=== PATIENT | female | born 1960 | race Caucasian/White ===

== ENCOUNTER 2021-03-02 10:22 | Outpatient (REF) | payer MEDICARE, MEDICAID, SELFPAY ==
[2021-03-02 10:38] LABS: Hematocrit 40.2 % (37-47); Hemoglobin 13.1 g/dl (12.0-16.0); Mean Corpuscular HGB Conc 32.6 g/dl (31.0-35.0); Mean Corpuscular Hemoglobin 29.2 pg (27.0-33.0); Mean Corpuscular Volume 89.7 fL (80-98); Mean Platelet Volume 9.9 fL (9.4-12.3); Platelet Count 251 X10*3/uL (160-400); Red Blood Count 4.48 X10*6/uL (4.20-5.50); Red Cell Distribution Width 12.5 % (11.0-16.0); White Blood Count 7.8 X10*3/uL (4.8-10.8)
[2021-03-02 10:52] LABS: Estimated Average Glucose 105 mg/dL; Hemoglobin A1c % 5.3 %
[2021-03-02 11:05] LABS: Alanine Aminotransferase 17 U/L (0-31); Albumin Level 4.4 g/dL (3.5-5.0); Alkaline Phosphatase 79 U/L (39-117); Anion Gap 14 (12-20); Aspartate Amino Transferase 18 U/L (5-31); Bilirubin Total 0.5 mg/dL (0.0-1.0); Blood Urea Nitrogen 9 mg/dL (9-16); Calcium 9.6 mg/dL (8.4-10.2); Carbon Dioxide 25 mmol/L (22-29); Chloride 106 mmol/L (96-108); Cholesterol 281 mg/dL; Estimated Glomerular Filt Rate > 60; Glucose Fasting 126 mg/dL (60-99); HDL Cholesterol 56 mg/dL; LDL Cholesterol Calculated 173 mg/dl; Sodium 141 mmol/L (135-145); Total Protein 7.2 g/dL (6.5-8.0); Triglycerides 262 mg/dL
[2021-03-02 11:25] LABS: TSH reflex Free T4 0.99 uIU/mL (0.32-4.0)
== END 2021-03-02 10:23 | disposition home or self-care (01) ==
LOC: HO.LAB 10:22
PROVIDERS: PCP Physician Assistant; Visit Provider Physician Assistant
DX: I10 Essential (primary) hypertension (principal); Z13.1 Encounter for screening for diabetes mellitus; Z13.29 Encounter for screening for other suspected endocrine disorder; Z13.220 Encounter for screening for lipoid disorders
CPT/HCPCS: 36415; 80053; 80061; 83036; 84443; 85027

== ENCOUNTER 2021-04-06 09:05 | Outpatient (REF) | payer MEDICARE, MEDICAID, SELFPAY ==
--- NOTE | ~2021-04-06 | XR_ITS ---
EXAMINATION: KNEE X-RAY CLINICAL INFORMATION: Post left knee replacement. Pain. COMPARISON: Previous x-rays most recent December 2017, fluoroscopy exam September [address] April 2019 TECHNIQUE: Standing AP view of both knees and lateral and sunrise view of the left knee FINDINGS: Left: There is a 3 component left knee replacement in satisfactory position. No fracture, dislocation or x-ray evidence of loosening is seen. There is increasing lucency of the superior patella. There is a small joint effusion. Standing AP view of the right knee demonstrates mild joint space narrowing at the medial femoral tibial joint. XR/XR knee standing BI IMPRESSION: Left: Left knee replacement. Question increasing lucency of the superior patella. Small joint effusion.
--- NOTE | ~2021-04-06 | XR_ITS ---
EXAMINATION: KNEE X-RAY CLINICAL INFORMATION: Post left knee replacement. Pain. COMPARISON: Previous x-rays most recent December 2017, fluoroscopy exam September [address] April 2019 TECHNIQUE: Standing AP view of both knees and lateral and sunrise view of the left knee FINDINGS: Left: There is a 3 component left knee replacement in satisfactory position. No fracture, dislocation or x-ray evidence of loosening is seen. There is increasing lucency of the superior patella. There is a small joint effusion. Standing AP view of the right knee demonstrates mild joint space narrowing at the medial femoral tibial joint. XR/XR knee LT 2V IMPRESSION: Left: Left knee replacement. Question increasing lucency of the superior patella. Small joint effusion.
== END 2021-04-06 09:06 | disposition home or self-care (01) ==
LOC: HO.HOSX 09:05
PROVIDERS: Visit Provider Orthopaedic Surgery
DX: M76.32 Iliotibial band syndrome, left leg (principal); T84.89XA Other specified complication of internal orthopedic prosthetic devices, implants and grafts, initial encounter; Z96.652 Presence of left artificial knee joint
CPT/HCPCS: 73560; 73565; 99212

== ENCOUNTER 2021-09-04 06:05 | Outpatient (REF) | payer MEDICARE, MEDICAID, SELFPAY ==
[2021-09-04 07:41] LABS: Alanine Aminotransferase 13 U/L (0-31); Albumin Level 4.2 g/dL (3.5-5.0); Alkaline Phosphatase 69 U/L (39-117); Anion Gap 14 (12-20); Aspartate Amino Transferase 15 U/L (5-31); Bilirubin Total 0.5 mg/dL (0.0-1.0); Blood Urea Nitrogen 11 mg/dL (9-16); Calcium 9.5 mg/dL (8.4-10.2); Carbon Dioxide 24 mmol/L (22-29); Chloride 106 mmol/L (96-108); Cholesterol 208 mg/dL; Estimated Glomerular Filt Rate > 60; Glucose Fasting 117 mg/dL (60-99); HDL Cholesterol 51 mg/dL; LDL Cholesterol Calculated 120 mg/dl; Potassium 4.2 mmol/L (3.3-5.1); Sodium 140 mmol/L (135-145); Total Protein 6.9 g/dL (6.5-8.0); Triglycerides 186 mg/dL
== END 2021-09-04 06:06 | disposition home or self-care (01) ==
LOC: HO.LAB 06:05
PROVIDERS: PCP Physician Assistant; Visit Provider Physician Assistant
DX: E78.2 Mixed hyperlipidemia (principal)
CPT/HCPCS: 36415; 80053; 80061

== ENCOUNTER → 2021-10-31 12:17 | Outpatient (BNVA) | payer MEDICARE, MEDICAID, SELFPAY | PROVIDERS: PCP Physician Assistant; Visit Provider Orthopaedic Surgery | DX: R20.0 Anesthesia of skin (principal); R20.2 Paresthesia of skin; M18.11 Unilateral primary osteoarthritis of first carpometacarpal joint, right hand | CPT/HCPCS: 99202 ==

== ENCOUNTER 2022-03-15 09:29 | Outpatient (REF) | payer MEDICARE, MEDICAID, SELFPAY ==
[2022-03-15 10:09] LABS: Hematocrit 39.8 % (37.0-47.0); Hemoglobin 12.7 g/dl (12.0-16.0); Mean Corpuscular HGB Conc 31.9 g/dl (31.0-35.0); Mean Corpuscular Hemoglobin 29.3 pg (27.0-33.0); Mean Corpuscular Volume 91.9 fL (80.0-98.0); Platelet Count 257 X10*3/uL (160-400); Red Blood Count 4.33 X10*6/uL (4.20-5.50)
[2022-03-15 10:45] LABS: Alanine Aminotransferase 12 U/L (0-31); Albumin Level 4.5 g/dL (3.5-5.0); Alkaline Phosphatase 74 U/L (39-117); Anion Gap 16 (12-20); Aspartate Amino Transferase 17 U/L (5-31); Bilirubin Total 0.5 mg/dL (0.0-1.0); Blood Urea Nitrogen 10 mg/dL (9-16); Calcium 9.8 mg/dL (8.4-10.2); Carbon Dioxide 25 mmol/L (22-29); Chloride 104 mmol/L (96-108); Cholesterol 283 mg/dL; Estimated Glomerular Filt Rate > 60; Glucose Fasting 119 mg/dL (60-99); HDL Cholesterol 60 mg/dL; LDL Cholesterol Calculated 173 mg/dl; Potassium 4.1 mmol/L (3.3-5.1); Sodium 141 mmol/L (135-145); Total Protein 7.3 g/dL (6.5-8.0); Triglycerides 253 mg/dL
[2022-03-15 10:54] LABS: TSH reflex Free T4 0.81 uIU/mL (0.32-4.0)
== END 2022-03-15 09:30 | disposition home or self-care (01) ==
LOC: HO.LAB 09:29
PROVIDERS: PCP Physician Assistant; Visit Provider Physician Assistant
DX: R73.09 Other abnormal glucose (principal); R61 Generalized hyperhidrosis; E78.2 Mixed hyperlipidemia
CPT/HCPCS: 36415; 80053; 80061; 84443; 85027

== ENCOUNTER 2022-04-19 07:35 | Outpatient (REF) | payer MEDICARE, MEDICAID, SELFPAY ==
--- NOTE | ~2022-04-19 | MM_ITS ---
EXAMINATION: MM SCREENING DIGITAL BREAST TOMOSYNTHESIS, BILATERAL CLINICAL INFORMATION: Screening. Asymptomatic. The lifetime risk of breast cancer based on the Tyrer-Cuzick Model is 3.6%. COMPARISON: Mammography: 12/14/2008 TECHNIQUE: Digital breast tomosynthesis is performed in both the craniocaudal and mediolateral oblique views along with computer-aided detection (CAD). Synthesized 2D images are generated from the tomosynthesis. FINDINGS: The breasts are almost entirely fatty (ACR BI-RADS breast composition Category a). There is a stable parenchymal pattern of the left breast without new abnormal dominant mass or suspicious grouping of microcalcifications. There are numerous circumscribed densities seen within the right breast as marked on tomographic imaging including a periareolar circumscribed density. Ultrasound evaluation is recommended of the right breast. MM/MM tomosynthesis screening BI IMPRESSION: Numerous circumscribed densities some of which are lobular within the right breast not definitely noted on study of 12/14/2008 for which right breast ultrasound is recommended. ASSESSMENT: BI-RADS 0: Incomplete - Need Additional Imaging Evaluation RECOMMENDATION: Targeted right breast ultrasound. This patient's information was entered into a reminder system with a target due date for their next mammogram.
== END 2022-04-19 07:36 | disposition home or self-care (01) ==
LOC: HO.MAMMO 07:35
PROVIDERS: PCP Physician Assistant; Visit Provider Physician Assistant
DX: Z12.31 Encounter for screening mammogram for malignant neoplasm of breast (principal)
CPT/HCPCS: 77063; 77067

== ENCOUNTER 2022-04-26 08:15 | Outpatient (REF) | payer MEDICARE, MEDICAID, SELFPAY ==
--- NOTE | ~2022-04-26 | US_ITS ---
EXAMINATION: US DIAGNOSTIC ULTRASOUND BREAST, RIGHT CLINICAL INFORMATION: Recall from screening for scattered nodularity duct ectasia right breast. COMPARISON: 04/19/2022, remote prior mammography 12/14/2008. TECHNIQUE: Ultrasound-guided right breast is targeted to the 1:00 through 9:00 position using grayscale imaging and color Doppler without and with harmonics. There is interrogated correspond to scattered densities on mammography. FINDINGS: Ultrasound shows no solid mass or focal architectural abnormality. There is benign-appearing retroareolar duct ectasia with anechoic lumen. No internal echogenicity or associated color flow. There is an intramammary node posterior upper outer right breast measuring 1 cm with normal nelly architecture and color flow. There are several scattered small cysts central upper breast, largest only 0.5 cm. These likely correspond to the mammographic nodularity. Results are discussed with the patient at time of visit. There are no other prior mammography exams other than the 2008 study. Ultrasound shows no suspicious finding. Chronicity of the benign-appearing mammographic findings is unknown. Management plan is for diagnostic right mammography in 6 months. US/US breast RT limited IMPRESSION: -No solid mass or architectural abnormality. -Benign retroareolar duct ectasia. Scattered small cysts. ASSESSMENT: BI-RADS 3: Probably Benign RECOMMENDATION: Diagnostic right mammography in 6 months. This patient's information was entered into a reminder system with a target due date for their next mammogram.
== END 2022-04-26 08:16 | disposition home or self-care (01) ==
LOC: HO.MAMMO 08:15
PROVIDERS: PCP Physician Assistant; Visit Provider Physician Assistant
DX: R92.2 Inconclusive mammogram (principal)
CPT/HCPCS: 76642

== ENCOUNTER 2022-09-27 08:04 | Outpatient (REF) | payer MEDICARE, MEDICAID, SELFPAY ==
--- NOTE | ~2022-09-27 | XR_ITS ---
EXAMINATION: XR KNEE, LEFT XR KNEE AP STANDING CLINICAL INFORMATION: Pain. COMPARISON: None available. TECHNIQUE: Lateral and axial views of the left knee were obtained. AP bilateral standing view of the knees was obtained. FINDINGS: Prosthetic components of the left total knee arthroplasty are appropriately aligned without periprosthetic fracture or abnormal lucency. No component migration. No joint effusion. The lateral joint space compartment of the right knee is well-maintained. There is mild narrowing of the medial joint space compartment the left kidney, with mild peripheral osteophyte formation. There is a slight varus configuration of the right knee. No varus or valgus configuration is noted of the left knee. XR/XR knee LT 2V IMPRESSION: 1. Appropriate alignment of the left total knee arthroplasty without evidence of complications. 2. There is mild degenerative change of the medial joint space compartment of the right knee. This is an associated mild varus configuration.
--- NOTE | ~2022-09-27 | XR_ITS ---
EXAMINATION: XR KNEE, LEFT XR KNEE AP STANDING CLINICAL INFORMATION: Pain. COMPARISON: None available. TECHNIQUE: Lateral and axial views of the left knee were obtained. AP bilateral standing view of the knees was obtained. FINDINGS: Prosthetic components of the left total knee arthroplasty are appropriately aligned without periprosthetic fracture or abnormal lucency. No component migration. No joint effusion. The lateral joint space compartment of the right knee is well-maintained. There is mild narrowing of the medial joint space compartment the left kidney, with mild peripheral osteophyte formation. There is a slight varus configuration of the right knee. No varus or valgus configuration is noted of the left knee. XR/XR knee standing BI IMPRESSION: 1. Appropriate alignment of the left total knee arthroplasty without evidence of complications. 2. There is mild degenerative change of the medial joint space compartment of the right knee. This is an associated mild varus configuration.
== END 2022-09-27 08:05 | disposition home or self-care (01) ==
LOC: HO.HOSX 08:04
PROVIDERS: Visit Provider Orthopaedic Surgery
DX: M17.11 Unilateral primary osteoarthritis, right knee (principal); M25.512 Pain in left shoulder
CPT/HCPCS: 73560; 73565; 99212

== ENCOUNTER 2022-10-25 08:45 | Outpatient (REF) | payer MEDICARE, MEDICAID, SELFPAY ==
--- NOTE | ~2022-10-25 | MM_ITS ---
EXAMINATION: MM DIAGNOSTIC DIGITAL BREAST TOMOSYNTHESIS, RIGHT US DIAGNOSTIC ULTRASOUND BREAST, RIGHT CLINICAL INFORMATION: Short interval six-month follow-up scattered benign-appearing nodular asymmetries and mild duct ectasia. TC score 4%. COMPARISON: Mammography: 04/19/2022 (BI-RADS 0), 12/14/2008; right breast ultrasound 04/26/2022. TECHNIQUE: Digital breast tomosynthesis is performed in both the craniocaudal and mediolateral oblique views along with computer-aided detection (CAD). Synthesized 2D images are generated from the tomosynthesis. Ultrasound right axilla is performed using grayscale imaging and color Doppler. Additional imaging central and retroareolar right breast also included at time of real-time axillary scanning. FINDINGS: There are scattered areas of fibroglandular density (ACR BI-RADS breast composition Category b). The nodular parenchymal pattern and mild duct ectasia is similar to prior mammography. There is no developing density or interval architectural abnormality. No abnormal calcifications. No skin thickening or coarsening of the Estrada's ligaments. There is a posterior upper outer quadrant axillary node which appears slightly more prominent and thicker when compared with the prior exam 04/19/2022. This prompted additional imaging with ultrasound. Ultrasound of the right axillary node 9:30-10:00 position 9 cm from nipple shows the normal nelly architecture and abundant central fatty hilus. No measures approximately 1.4 x 1.0 cm. The cortex measures 4 mm compared with 3 mm on prior imaging. There is normal central hilar color flow pattern. Additional imaging central and anterior right breast shows some scattered small cysts and benign retroareolar duct ectasia similar to prior ultrasound. Results are discussed with the patient at time of visit. No recent vaccination right arm or other inflammatory history. The lower right axillary node appears benign, likely mildly reactive. This may be reassessed again in 3 months with targeted ultrasound. The right breast will be reassessed again at time of annual bilateral mammography, due in 6 months. MM/MM tomosynthesis diagnostic RT IMPRESSION: -Right breast parenchymal pattern is similar to prior exam. -Probable mild reactive low right axillary tail node. ASSESSMENT: BI-RADS 3: Probably Benign RECOMMENDATION: -Targeted ultrasound right axillary node in 3 months. -Diagnostic mammography at time of annual bilateral mammography, due in 6 months. This patient's information was entered into a reminder system with a target due date for their next mammogram.
== END 2022-10-25 08:46 | disposition home or self-care (01) ==
LOC: HO.MAMMO 08:45
PROVIDERS: PCP Physician Assistant; Visit Provider Physician Assistant
DX: N63.11 Unspecified lump in the right breast, upper outer quadrant (principal)
CPT/HCPCS: 76642; 77061; 77065

== ENCOUNTER 2022-11-08 08:57 | Outpatient (REF) | payer MEDICARE, MEDICAID, SELFPAY ==
--- NOTE | ~2022-11-08 | FL_ITS ---
EXAMINATION: FL BARIUM SWALLOW CLINICAL INFORMATION: Dysphasia. COMPARISON: 11/09/2016. TECHNIQUE: Barium swallow examination is performed using fluoroscopic evaluation in addition to multiple fluoroscopic spot views. The patient is imaged both upright and prone and using both thick and thin sulfate along with effervescent granules. Fluoroscopy time: 1.5 minutes DAP: 6.126 Gycm2 Images: 53 FINDINGS: Patient swallowed thin and thick barium without difficulty. Half-inch diameter barium tablet would not pass into the stomach with a web being present with persistent narrowing at the level of the GE junction. There is a small hiatal hernia present. There was some esophageal hypomotility with gastroesophageal reflux to the level of the fang which cleared. No esophageal mucosal abnormality was appreciated. No nasopharyngeal reflux or tracheal aspiration. No Zenker's diverticulum. No cricopharyngeal hypertrophy. No long persistent stricture is appreciated. There is normal apposition of the vocal cords while saying E and normal elevation of the soft palate while saying candy. FL/FL barium swallow IMPRESSION: 1. Persistent short section narrowing within the distal esophagus through which a half-inch diameter barium tablet would not pass. 2. Small hiatal hernia. 3. Esophageal hypomotility. 4. Gastroesophageal reflux.
== END 2022-11-08 08:58 | disposition home or self-care (01) ==
LOC: HO.XRAY 08:57
PROVIDERS: PCP Physician Assistant; Visit Provider Physician Assistant
DX: R13.19 Other dysphagia (principal)
CPT/HCPCS: 74220

== ENCOUNTER 2022-12-11 10:14 | Outpatient (AMB) | payer MEDICARE, MEDICAID, SELFPAY ==
--- NOTE | 2022-12-11 10:24 | MHC.OFFVIS ---
Intake Vital Signs 12/11/22 10:25 Height 5 ft 2 in Weight 156 lb 1.396 oz BMI 28.5 BP 107/55 L Blood Pressure Location Lt brachial Position Sitting Pulse 79 Intake Visit Reasons: Dysphagia Intake Note: Debby presents in office as a new.patient for Dysphagia PT CC: pt reports having trouble swallowing foods. pt denies any other GI Issues Medical Insurance Coding Specialist Required: No Accompanied by: Self / Same As Patient Allergies No Known Allergies [No Known Allergies*] Allergy (Verified 12/11/22 10:27) HPI Dysphagia HPI Details 62-year-old female with past medical history of hypercholesteremia, hypertension is here today for initial consultation. Patient was sent to us to evaluate her for trouble swallowing. Patient states that she has been having trouble swallowing that started 1 year ago. Patient states that she has been having worsening symptoms. Patient states that she is unable to swallow medications. Tried swallowing Tylenol and medication got stuck in her esophagus. Patient is unable to eat pasta or meat. Does ok with food that is soft. Patient states that she was started on omeprazole 20 mg and has not noticed any difference. Patient had barium swallow and was noted to have significant narrowing of the lower esophagus, acid reflux. Patient denies nausea or vomiting. Denies dyspepsia or odynophagia. Reports that she moves her bowels, however occasionally she will be constipated. Patient is on Suboxone and feels like she does not empty her bowels completely. Patient has Senokot at home, however due to her trouble swallowing she is unable to take them. Patient tried MiraLax in the past and states that that it worked for her. Patient denies any issues with anesthesia. Not on any anticoagulation medication. Denies any history of sleep apnea. Patient denies any cardiac or respiratory symptoms. 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 Cognitive needs: No Hearing needs: No Vision needs: No Review of Systems Const Denies weight gain and Denies weight loss ENT Reports no additional complaints, Reports dysphagia and Denies odynophagia Card Reports no additional complaints Resp Reports no additional complaints GI Reports abdominal pain (Epigastric ), Denies belching, Denies melena, Denies bloating, Reports constipation, Reports dysphagia, Denies excessive flatus, Denies dyspepsia, Denies heartburn, Denies diarrhea, Denies loose stools, Denies nausea, Denies odynophagia and Denies vomiting Reports no additional complaints Musc Reports no additional complaints Neuro Reports no additional complaints Psych Reports no additional complaints Endo Reports no additional complaints Physical Exam Vital Signs: Last Vital Signs Pulse 79 12/11/22 10:25 BP 107/55 L 12/11/22 10:25 BMI result Body Mass Index 28.5 Const General: healthy appearing, no acute distress and well developed Nutritional Appearance: well nourished Orientation/consciousness: patient oriented x3 HEENT Head: Yes normal to inspection, Yes normocephalic and Yes atraumatic Face and sinus: Yes normal facial exam Mouth: Normal oral and palatal mucosa present Throat: Yes posterior oropharynx normal, Yes tonsils normal and Yes uvula midline Eyes General: appearance normal, both eyes and all related structures Neck Neck: Yes normal visual inspection, Yes full ROM and Yes trachea midline Thyroid: Thyroid normal Resp Effort & Inspection: normal respiratory effort, able to speak in complete sentences, no tracheal deviation and symmetric chest movement Auscultation: clear to auscultation bilaterally Cardio Rate: regular rate Heart sounds: S1 normal heart sound present and S2 normal heart sound present GI Inspection: Yes normal to inspection and No distended Palpation (GI): Soft to palpation, not firm, nontender and No hepatosplenomegaly present Auscultation: normal bowel sounds General: Yes no CVA tenderness Back/Spine/Pelvis Back: no CVA tenderness Skin General skin exam: elasticity normal, turgor normal and dry skin Neuro General: patient oriented x3 Psych Appearance: grossly normal Mental Status: mental status grossly normal Speech and movement: Normal speech and movement present Affect: normal affect Results Reviewed Results Reviewed: BARIUM SWALLOW 11/08/2022 FINDINGS: Patient swallowed thin and thick barium without difficulty. Half-inch diameter barium tablet would not pass into the stomach with a web being present with persistent narrowing at the level of the GE junction. There is a small hiatal hernia present. There was some esophageal hypomotility with gastroesophageal reflux to the level of the fang which cleared. No esophageal mucosal abnormality was appreciated. No nasopharyngeal reflux or tracheal aspiration. No Zenker's diverticulum. No cricopharyngeal hypertrophy. No long persistent stricture is appreciated. There is normal apposition of the vocal cords while saying E and normal elevation of the soft palate while saying candy. FL/FL barium swallow IMPRESSION: 1. Persistent short section narrowing within the distal esophagus through which a half-inch diameter barium tablet would not pass. ? 2. Small hiatal hernia. ? 3. Esophageal hypomotility. ? 4. Gastroesophageal reflux. Assessment & Plan Assessment & Plan (1) Dysphagia: Code(s): R13.10 - Dysphagia, unspecified Qualifiers: Dysphagia type: esophageal phase Qualified Code(s): R13.19 - Other dysphagia Plan: Patient will be sent for upper endoscopy, rule out Schatzki ring, achalasia. Patient will need balloon stretching. Significant narrowing of the lower esophagus as seen on barium swallow. Esophageal hypomotility found that could be related to reflux or esophageal narrowing. (2) Constipation: Code(s): K59.00 - Constipation, unspecified Qualifiers: Constipation type: drug induced constipation Qualified Code(s): K59.03 - Drug induced constipation Plan: Patient can start taking MiraLax daily. Patient was also encouraged to increase fluid intake and activity to promote better bowel motility (3) GERD (gastroesophageal reflux disease): Code(s): K21.9 - Gastro-esophageal reflux disease without esophagitis Qualifiers: Esophagitis presence: esophagitis presence not specified Qualified Code(s): K21.9 - Gastro-esophageal reflux disease without esophagitis Plan: Reflux seen on barium swallow. Patient has not noticed any difference in epigastric discomfort after starting omeprazole. Will switch it to pantoprazole and send her for upper endoscopy to rule out gastritis, esophagitis, gastric or peptic ulcers. I will see her after the procedure, sooner on as needed basis. Patient is agreeable to this plan and verbalizes understanding of instructions. She was given the opportunity to ask questions and all questions answered. Thank you for allowing me to participate in care Medications: New polyethylene glycol 3350 (Miralax) 17 grams PO DAILY 510 grams 2RF pantoprazole take one tablet half an hour before breakfast 40 mg PO DAILY 30 tabs 2RF K21.9 - Gastro-esophageal reflux disease without esophagitis Discontinued omeprazole Discontinued Reason: Doctor's Order 20 mg PO DAILY 60 days 60 caps 3RF R13.19 - Other dysphagia Coding Level of Care Code New Pt Level 4 (21646) Diagnoses Dysphagia R13.19 Dysphagia type: esophageal phase Constipation K59.03 Constipation type: drug induced constipation GERD (gastroesophageal reflux disease) K21.9 Esophagitis presence: esophagitis presence not specified Time Spent (min) 45 Comment 30 minutes spent with patient and additional 15 minutes spent reviewing her records
[2022-12-11 10:25] VITALS: BP 107/55; PULSE 79; BMI 28.5
== END 2022-12-11 12:41 | disposition home or self-care (01) ==
PROVIDERS: PCP Physician Assistant; Visit Provider Nurse Practitioner Family
DX: R13.19 Other dysphagia (principal); K59.03 Drug induced constipation; K21.9 Gastro-esophageal reflux disease without esophagitis
CPT/HCPCS: 99204

== ENCOUNTER → 2022-12-11 10:14 | Outpatient (BNVA) | payer MEDICARE, MEDICAID, SELFPAY | PROVIDERS: PCP Physician Assistant; Visit Provider Nurse Practitioner Family | DX: R13.19 Other dysphagia (principal); K59.03 Drug induced constipation; K21.9 Gastro-esophageal reflux disease without esophagitis | CPT/HCPCS: 99202 ==

== ENCOUNTER 2022-12-19 12:04 | Day surgery (SDC) | payer MEDICARE, MEDICAID, SELFPAY ==
[2022-12-19 12:30] VITALS: BMI 28.0
--- NOTE | 2022-12-19 12:32 | P.CONAN_ITS ---
HPI - Anesthesia Eval Consult details Narrative: for EGD w dilation PMFSH Active Problems Active Problems: All Active Problems (Updated 09/13/22 @ 09:51 by Dilan Lopez PA-C) Tendinopathy of left shoulder (Acute) Dysphagia (Acute) Breast cancer screening (Acute) HTN (hypertension) (Acute) Muscle cramps (Acute) Memory deficit (Acute) Excessive sweating (Acute) Dental abscess (Acute) Anxiety due to invasive procedure (Acute) Arthritis of carpometacarpal (CMC) joint of right thumb (Acute) Numbness and tingling in both hands (Acute) COVID-19 (Acute) Dupuytren's contracture of right hand (Acute) De Quervain's tenosynovitis, right (Acute) Sciatica, left side (Acute) Impaired glucose metabolism (Acute) Postoperative stiffness of total knee replacement (Acute) Iliotibial band syndrome, left leg (Acute) HLD (hyperlipidemia) (Acute) Annual physical exam (Acute) Breast cancer screening (Acute) Former smoker (Acute) Screening for hypothyroidism (Acute) Screening for hypercholesterolemia (Acute) Screening for diabetes mellitus (DM) (Acute) Colon cancer screening (Acute) Opiate dependence (Acute) Colon cancer screening (Acute) Failed total knee arthroplasty (Acute) Past Medical History Medical History Failed total knee arthroplasty Family History Family History Son Kidney malignancy Family history of problems with anesthesia: No Surgical History History of Problems with Anesthesia: No Social History Social History Housing: House Alcohol intake: current Alcohol intake frequency: holidays/special occasions only Patient Tobacco Use Status: Former Tobacco user Quit Date: 2016 e-Cigarette/Vaping Use: Never Used Second Hand Smoke Exposure: No Advance Directives: No Advance Directives Information Provided: Yes service: No Current occupational status: employed 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 Cognitive needs: No Hearing needs: No Vision needs: No Meds Allergies Allergy/AdvReac Type Severity Reaction Status Date / Time No Known Allergies Allergy Verified 12/11/22 10:27 [No Known Allergies*] Active Medications: Current Medications Lactated Ringer's (Lr) 1,000 mls @ 100 mls/hr IVCONT .Q10H LOUIE Ondansetron HCl (Ondansetron Hcl 4 Mg/2 Ml Vial) 4 mg IVPUSH ONCE PRN PRN Reason: Nausea and Vomiting Home Medications Medication Instructions Recorded Confirmed Last Taken Type buprenorphine 8 mg-naloxone 2 mg 1 film buccal DAILY 12/05/20 09/13/22 Unknown History sublingual film (Suboxone) Exam Exam Date and Time: December 19, 2022 1232 Airway Mallampati Class: I TM Dist: <=3cm Neck ROM: Full Denture: Upper Heart: ok Lungs: ok Assessment and Plan Assessment Anesthesia Assessment: Anesthesia Plan Discussed and Chart Reviewed Final Anesthetic Review Family History of Problems with Anesthesia: No History of Problems with Anesthesia: No NPO: Yes ASA Class: III Final Preanesthetic Review: No Changes in Pt Med Stat, Meds/Allgs Chart Reviewed, Consent Obtained/Reviewed and Anes Risks/Benef Reviewed Patient Risk: Intermediate Procedure Risk: Intermediate Anesthetic Plan Anesthetic Plan: MAC: and Agree w/ Assess. and Plan Disposition: Standard PACU
[2022-12-19 12:38] VITALS: BP 149/86; PULSE 88; RESP 18; TEMP 36.3; O2SAT 96
[2022-12-19] MEDS: Lactated Ringers 1,000 ML 100 ML IVCONT (12:50)
--- NOTE | 2022-12-19 12:52 | P.OP_ITS ---
Operative Note Operative Note Date of Service: 12/19/22 Narrative: Procedure: Esophagogastroduodenoscopy Endoscopist: Natasha Valladares MD Indication: dysphagia, abnormal barium esophagogram Anesthesia Provider: Robin Guadarrama MD Anesthesia Type: MAC ?? EGD Procedure:?? The procedure, indications, preparation and potential complications were reviewed with the patient, who indicated understanding and gave written informed consent to proceed. A physical exam was performed. The endoscope was introduced through the mouth, and advanced to the second part of duodenum. The mucosa was carefully examined on slow withdrawal of the endoscope. The patient tolerated the procedure well. There were no immediate complications.? ? EGD Findings:? * Esophagus:? Normal mucosa noted in the entire esophagus. The Z line was at 30 cm. There was a Schatzki's ring right above that was narrow but traversed/ dilated by gastroscope with gentle maneuvering. A large hiatal hernia was noted with diaphragmatic pinch at 35 cm. * Stomach:? Normal mucosa was noted in the stomach. * Duodenum:? Normal mucosa was noted in the whole of the examined duodenum. Additional intervention:A fixed-wire balloon was advanced through the biopsy channel of the gastroscope and advanced to the GE junction. It was then incrementally inflated from 10 mm to 12 mm. Small tear with heme was noted in the Schatzki's ring confirming successful dilation. ? EGD Impressions:? * Obstructing Schatzki's ring (dilation) * Hiatal hernia * Normal stomach * Normal duodenum ?? Recommendations:?? * Repeat EGD in 4-6 weeks to see if further dilation needed * Add liquid carafate x 1 week * Continue PPI therapy. * Avoid NSAIDs. Above has been reviewed with the patient.
--- NOTE | 2022-12-19 12:52 | MHC.SHP ---
Pre-Procedural Eval Section A Date of Service: 12/19/22 The History & Physical has been completed within 30 days and I have reviewed it.: Yes Section B Chief Complaint: Dysphagia, unspecified Allergies: Allergies Allergy/AdvReac Type Severity Reaction Status Date / Time No Known Allergies Allergy Verified 12/11/22 10:27 [No Known Allergies*] Plan Diagnosis/Plan: Unchanged I have reviewed the history and physical and performed a pertinent physical examination on my patient. No changes have occurred unless specified. Time Spent With Patient Time: Total time managing care of this patient today ____ minutes.
[2022-12-19 13:30] VITALS: BP 99/67; PULSE 105; RESP 15; TEMP 36.6; O2SAT 95
[2022-12-19 13:45] VITALS: BP 137/80; PULSE 81; RESP 16; TEMP 36.7; O2SAT 97
[2022-12-19] MEDS: Mag&Al/Sim/Diphenhyd/Lidocaine 10 ML ORAL.SUSP PO (13:52)
[2022-12-19 13:58] VITALS: BP 128/87; PULSE 78; RESP 16; TEMP 36.7; O2SAT 97
== END 2022-12-19 14:25 | disposition home or self-care (01) ==
PROVIDERS: PCP Physician Assistant; Visit Provider Internal Medicine
PROC: 0DJ08ZZ Inspection of Upper Intestinal Tract, Via Natural or Artificial Opening Endoscopic (ICD-10-PCS; CPT 43235; principal; 2022-12-19 13:50)
DX: R13.19 Other dysphagia (principal); K22.2 Esophageal obstruction; K21.9 Gastro-esophageal reflux disease without esophagitis; K44.9 Diaphragmatic hernia without obstruction or gangrene; I10 Essential (primary) hypertension; E78.00 Pure hypercholesterolemia, unspecified; K59.03 Drug induced constipation; Z79.899 Other long term (current) drug therapy; F11.20 Opioid dependence, uncomplicated; Z87.891 Personal history of nicotine dependence
CPT/HCPCS: 43249; C1726

== ENCOUNTER → 2022-12-19 12:04 | Outpatient (BNV) | payer MEDICARE, MEDICAID, SELFPAY | PROVIDERS: PCP Physician Assistant; Visit Provider Internal Medicine | DX: K22.2 Esophageal obstruction (principal); R93.3 Abnormal findings on diagnostic imaging of other parts of digestive tract | CPT/HCPCS: 43249 ==

== ENCOUNTER 2023-02-05 11:25 | Outpatient (REF) | payer MEDICARE, MEDICAID, SELFPAY ==
--- NOTE | ~2023-02-05 | US_ITS ---
EXAMINATION: US DIAGNOSTIC ULTRASOUND BREAST, RIGHT CLINICAL INFORMATION: 3 month Follow-up right axillary lymph nodes, of which at least one demonstrated slightly thickened cortex up to 4 mm. COMPARISON: 10/25/2022 ultrasound right axilla. TECHNIQUE: Ultrasound of the right axillary region is performed with real-time buck scale imaging and color Doppler. Several cine clips were also obtained. FINDINGS: There are several benign appearing lymph nodes within the right axillary region, none of which demonstrate abnormally thickened cortex, or other suspicious features. All demonstrate normal fatty hans and normal color Doppler signal. The previously seen lymph node with mildly thickened cortex is no longer evident and appears normal. No additional masses, cystic abnormalities, edema within soft tissue planes, or gross architectural changes noted in the right axillary region. Results were discussed with the patient at time of visit. US/US breast RT limited mamm only IMPRESSION: Benign right axillary lymph nodes identified. No suspicious features currently. Previously seen slightly abnormal lymph node is no longer evident. Recommend clinical management. ASSESSMENT: BI-RADS 2: Benign RECOMMENDATION: 1. Patient should be managed based on the clinical impression. Decision to proceed with axillary node biopsy should be based on clinical grounds and degree of clinical concern. 2. Otherwise, recommend return to recommended right diagnostic mammography in 3 months, to evaluate stability of scattered benign-appearing nodular asymmetries and mild duct ectasia. This patient's information was entered into a reminder system with a target due date for their next mammogram.
== END 2023-02-05 11:26 | disposition home or self-care (01) ==
LOC: HO.MAMMO 11:25
PROVIDERS: PCP Physician Assistant; Visit Provider Physician Assistant
DX: N63.10 Unspecified lump in the right breast, unspecified quadrant (principal)
CPT/HCPCS: 76642

== ENCOUNTER → 2023-02-05 11:30 | Outpatient (BNV) | payer MEDICARE, MEDICAID, SELFPAY | PROVIDERS: PCP Physician Assistant; Visit Provider Radiology Diagnostic Radiology | DX: R92.8 Other abnormal and inconclusive findings on diagnostic imaging of breast (principal) | CPT/HCPCS: 76642 ==

== ENCOUNTER 2023-03-07 11:43 | Day surgery (SDC) | payer MEDICARE, MEDICAID, SELFPAY ==
[2023-03-05 13:36] VITALS: BMI 28.5
--- NOTE | 2023-03-06 12:19 | P.CONAN_ITS ---
Documented by User: Balbina Durant NP 03/06/23 12:20 HPI - Anesthesia Eval Consult details Narrative: 62yo F for Upper Endoscopy with Balloon Dilitation s/p same 12/2022 with TIVA Suboxone daily for hx opioid dependence PMFSH Active Problems Active Problems: All Active Problems (Updated 03/05/23 @ 13:35 by Tayla Diaz, RN) Tendinopathy of left shoulder (Acute) Dysphagia (Acute) Breast cancer screening (Acute) HTN (hypertension) (Acute) Muscle cramps (Acute) Memory deficit (Acute) Excessive sweating (Acute) Dental abscess (Acute) Anxiety due to invasive procedure (Acute) Arthritis of carpometacarpal (CMC) joint of right thumb (Acute) Numbness and tingling in both hands (Acute) COVID-19 (Acute) Dupuytren's contracture of right hand (Acute) De Quervain's tenosynovitis, right (Acute) Sciatica, left side (Acute) Impaired glucose metabolism (Acute) Postoperative stiffness of total knee replacement (Acute) Iliotibial band syndrome, left leg (Acute) HLD (hyperlipidemia) (Acute) Annual physical exam (Acute) Breast cancer screening (Acute) Former smoker (Acute) Screening for hypothyroidism (Acute) Screening for hypercholesterolemia (Acute) Screening for diabetes mellitus (DM) (Acute) Colon cancer screening (Acute) Opiate dependence (Acute) Colon cancer screening (Acute) Failed total knee arthroplasty (Acute) Past Medical History Medical History GERD (gastroesophageal reflux disease) Opiate dependence Dysphagia Elevated cholesterol HTN (hypertension) Failed total knee arthroplasty Family History Family History Son Kidney malignancy Family history of problems with anesthesia: No Surgical History Surgical History Hx of total knee replacement History of esophagogastroduodenoscopy (EGD) History of Problems with Anesthesia: No Social History Social History Housing: House Alcohol intake: current Alcohol intake frequency: holidays/special occasions only Patient Tobacco Use Status: Former Tobacco user Quit Date: 2016 e-Cigarette/Vaping Use: Never Used Second Hand Smoke Exposure: No Use of substances other than those prescribed or required for medical reasons: Yes Are you DNR?: No Advance Directives: No Advance Directives Information Provided: Yes service: No Current occupational status: employed 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 Cognitive needs: No Hearing needs: No Vision needs: No Meds Allergies Allergy/AdvReac Type Severity Reaction Status Date / Time No Known Allergies Allergy Verified 12/11/22 10:27 [No Known Allergies*] Home Medications Medication Instructions Recorded Confirmed Last Taken Type buprenorphine 8 mg-naloxone 2 mg 1 film buccal DAILY 12/05/20 03/05/23 Unknown History sublingual film (Suboxone) Exam Exam Date and Time: March 06, 2023 121 Height,Weight and Vital Signs: Height 5 ft 2 in Weight 70.76 kg Assessment and Plan Assessment Anesthesia Assessment: Chart Reviewed Final Anesthetic Review Family History of Problems with Anesthesia: No History of Problems with Anesthesia: No Documented by User: Jeovany Zamarripa MD 03/07/23 13:36 PMFSH Past Medical History Medical History GERD (gastroesophageal reflux disease) Opiate dependence Dysphagia Elevated cholesterol HTN (hypertension) Failed total knee arthroplasty Family History Family History Son Kidney malignancy Surgical History Surgical History Hx of total knee replacement History of esophagogastroduodenoscopy (EGD) Social History Social History Housing: House Alcohol intake: current Alcohol intake frequency: holidays/special occasions only Patient Tobacco Use Status: Former Tobacco user Quit Date: 2016 e-Cigarette/Vaping Use: Never Used Second Hand Smoke Exposure: No Use of substances other than those prescribed or required for medical reasons: Yes Are you DNR?: No Advance Directives: No Advance Directives Information Provided: Yes service: No Current occupational status: employed 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 Cognitive needs: No Hearing needs: No Vision needs: No Meds Allergies Allergy/AdvReac Type Severity Reaction Status Date / Time No Known Allergies Allergy Verified 12/11/22 10:27 [No Known Allergies*] Home Medications Medication Instructions Recorded Confirmed Last Taken Type buprenorphine 8 mg-naloxone 2 mg 1 film buccal DAILY 12/05/20 03/05/23 Unknown History sublingual film (Suboxone) Exam Airway Mallampati Class: II TM Dist: >3cm Neck ROM: Full Denture: Upper Partial: Lower Assessment and Plan Assessment Anesthesia Assessment: Anesthesia Plan Discussed Final Anesthetic Review NPO: Yes ASA Class: III Final Preanesthetic Review: No Changes in Pt Med Stat, Meds/Allgs Chart Reviewed, Consent Obtained/Reviewed and Anes Risks/Benef Reviewed Patient Risk: Intermediate Procedure Risk: Low Anesthetic Plan Anesthetic Plan: MAC: Disposition: Standard PACU
[2023-03-07 12:13] VITALS: BP 150/67; PULSE 97; RESP 16; TEMP 36.5; O2SAT 96
[2023-03-07] MEDS: Lactated Ringers 1,000 ML 100 ML IVCONT (12:26)
--- NOTE | 2023-03-07 13:21 | MHC.SHP ---
Pre-Procedural Eval Section A Date of Service: 03/07/23 Section B Chief Complaint: Dysphagia, unspecified Details of Present Illness: hypercholesteremia, hypertension Present Medications: see Short Stay Collaborative assessment Allergies: Allergies Allergy/AdvReac Type Severity Reaction Status Date / Time No Known Allergies Allergy Verified 12/11/22 10:27 [No Known Allergies*] Review of Systems Review of Systems Comment: 10 point ROS negative Exam Exam Comment: Gen appear: No acute distress HEENT: no icterus Chest: No overt resp distress Abd: soft, nontender, nondistended Psych: Stable affect, answering questions appropriately Neuro: A/Ox3 noted to move all extremities spontaneously Ext: no peripheral edema Plan Diagnosis/Plan: Unchanged I have reviewed the history and physical and performed a pertinent physical examination on my patient. No changes have occurred unless specified. Time Spent With Patient Time: Total time managing care of this patient today ____ minutes.
--- NOTE | 2023-03-07 13:46 | P.OP_ITS ---
Operative Note Operative Note Date of Service: 03/07/23 Narrative: Procedure: Esophagogastroduodenoscopy Endoscopist: Natasha Valladares MD Indication: dysphagia, Schatzki's ring Anesthesia Provider: Dr Jeovany Zamarripa Anesthesia Type: MAC ?? EGD Procedure:?? The procedure, indications, preparation and potential complications were reviewed with the patient, who indicated understanding and gave written informed consent to proceed. A physical exam was performed. The endoscope was introduced through the mouth, and advanced to the second part of duodenum. The mucosa was carefully examined on slow withdrawal of the endoscope. The patient tolerated the procedure well. There were no immediate complications.? ? EGD Findings:? * Esophagus:? Normal mucosa noted in the entire esophagus. The Z line was at 32 cm. There was a Schatzki's ring right above that was narrow but traversed easily with gastroscope. Cold forceps biopsies were taken from the GE junction. A large hiatal hernia was noted with diaphragmatic pinch at 37 cm. * Stomach:? Normal mucosa was noted in the stomach. * Duodenum:? Normal mucosa was noted in the whole of the examined duodenum. Additional intervention: A fixed-wire balloon was advanced through the biopsy channel of the gastroscope and advanced to the GE junction. It was then incrementally inflated from 12 mm to 15 mm. Small tear with heme was noted in the Schatzki's ring confirming successful dilation. ? EGD Impressions:? * Obstructing Schatzki's ring (dilation) * Hiatal hernia * Normal stomach * Normal duodenum ?? Recommendations:?? * Repeat EGD in 6-8 weeks for updilation to at least 18 mm for relief of dysphagia sx * Take liquid carafate x 1 week * Continue PPI therapy. * Avoid NSAIDs and smoking Above has been reviewed with the patient.
[2023-03-07 14:15] VITALS: BP 117/68; PULSE 90; RESP 18; TEMP 37; O2SAT 94
[2023-03-07 14:30] VITALS: BP 128/78; PULSE 78; RESP 18; TEMP 36.9; O2SAT 94
== END 2023-03-07 14:55 | disposition home or self-care (01) ==
PROVIDERS: PCP Physician Assistant; Visit Provider Internal Medicine
PROC: (CPT 43239; principal; 2023-03-07 13:10)
DX: K22.2 Esophageal obstruction (principal); K44.9 Diaphragmatic hernia without obstruction or gangrene; R13.19 Other dysphagia; I10 Essential (primary) hypertension; E78.00 Pure hypercholesterolemia, unspecified; Z79.899 Other long term (current) drug therapy; Z87.891 Personal history of nicotine dependence; K59.00 Constipation, unspecified; K21.9 Gastro-esophageal reflux disease without esophagitis
CPT/HCPCS: 43239; 43245; 88305; C1726

== ENCOUNTER → 2023-03-07 11:43 | Outpatient (BNV) | payer MEDICARE, MEDICAID, SELFPAY | PROVIDERS: PCP Physician Assistant; Visit Provider Internal Medicine | DX: K22.2 Esophageal obstruction (principal) | CPT/HCPCS: 43239; 43245 ==

== ENCOUNTER 2023-03-28 08:54 | Outpatient (AMB) | payer MEDICARE, MEDICAID, SELFPAY ==
[2023-03-28 09:13] VITALS: BP 102/62; PULSE 97; O2SAT 96; BMI 28.9
--- NOTE | 2023-03-28 09:13 | A.OFFPC_ITS ---
Vital Signs 3 03/28/23 09:13 Height 5 ft 2 in Weight 158 lb BMI 28.9 BP 102/62 Blood Pressure Location Lt brachial Position Sitting Pulse 97 Pulse Source Pulse Oximeter Pulse Oximetry (%) 96 Oxygen Delivery Method Room Air Intake Visit Reasons: Annual Exam Intake Note: Patient is here today for a physical. 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 Accompanied by: Self / Same As Patient Allergies No Known Allergies [No Known Allergies*] Allergy (Verified 03/28/23 09:30) Medication List - Last Reconciled 03/28/23 by Dilan Lopez PA-C buprenorphine-naloxone 8-2 mg (Suboxone) 1 film buccal DAILY lisinopril 5 mg PO DAILY pantoprazole 40 mg PO DAILY polyethylene glycol 3350 (Miralax) 17 grams PO DAILY simvastatin 20 mg PO DAILY 90 days Tobacco use date assessed: 09/13/22 Dental Screening Dental Screen Date: 03/28/23 Did you have a dental visit in the last 12 months?: Yes Did you have a dental problem in the last 6 months where you did not have access to dental care?: No Was dental information given to patient?: Patient has dentist HPI Annual Exam 2 HPI0 Details Patient is a 62-year-old female here today for a routine annual physical..? Patient has a past medical history significant for hyperlipidemia, LEft knee deformity/ osteoarthritis,? opiate dependence and on Suboxone to a local clinic. GERD: Recently underwent endoscopy and was found to esophageal stricture. Balloon dilation was done continues to follow up with Gastroenterology. Advised on stay way from NSAIDs and continue PPI therapy. Concern-> reports a skin lesion on her mid chest. She is concerned about skin cancer would like to see a director of collections and archives for evaluation. Also reports her right hand has been very numb and even painful in her palmar region. Has seen orthopedic in the past and was told to use conservative treatment with a hand wrist splint. Unfortunately continues to have numbness in her hand and will send for EMG for evaluation of median nerve neuropathy. .. Hypertension: Continues on 5 mg lisinopril with good control of her blood pressure. Blood pressure seems to have normalized. .. Knee osteoarthritis status post replacement: continues to left knee pain swelling and decreased range of motion.? Has seen her orthopedic and was advised to to start physical therapy.? Recommendations also made for possible evaluation by pain management. X-ray knee showing--> Left knee replacement. Question increasing lucency of the superior patella. Small joint effusion.? ?She has had this is an existing condition over the last several years since knee replacement and revisions.? Of note-- > Prev PCP was Dr Pederson.? She has a past history left knee osteoarthritis requiring total knee replacement though was complicated and needed reconstructive surgery.? She was dependent on opiates and now has transition to Suboxone to which she gets from a local [facility] Suboxone clinic. in. /.. Hyperlipidemia:? Patient was started on low potency? statin therapy and her fasting lipid panel much improved., Vaccines: Up-to-date with COVID vaccine, pneumonia vaccine. Needs flu vaccine and shingles vaccine though declines at this time Colon cancer screening: Has done Cologuard in 2021 which was negative Mammo: Up-to-date with mammogram [facility] Medical History (Updated 03/28/23 @ 09:55 by Dilan Lopez PA-C) De Quervain's tenosynovitis, right Postoperative stiffness of total knee replacement Former smoker GERD (gastroesophageal reflux disease) Opiate dependence Dysphagia Elevated cholesterol HTN (hypertension) Failed total knee arthroplasty Surgical History Hx of total knee replacement History of esophagogastroduodenoscopy (EGD) Family History Son Kidney malignancy Social History (Updated 03/28/23 @ 09:38 by Dilan Lopez PA-C) Housing: House Alcohol intake: current Alcohol intake frequency: holidays/special occasions only Patient Tobacco Use Status: Former Tobacco user Quit Date: 2016 e-Cigarette/Vaping Use: Never Used Second Hand Smoke Exposure: No Substance Use Type: Marijuana service: No Current occupational status: employed 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 1. Little interest or pleasure in doing things: not at all 2. Feeling down, depressed, or hopeless: not at all 3. Trouble falling or staying asleep, or sleeping too much: not at all 4. Feeling tired or having little energy: not at all 5. Poor appetite or overeating: not at all 6. Feeling bad about yourself - or that you are a failure or have let yourself or your family down: not at all 7. Trouble concentrating on things, such as reading the newspaper or watching television: not at all 8. Moving or speaking so slowly that other people could have noticed. Or the opposite - being so fidgety or restless that you have been moving around a lot more than usual: not at all 9. Thoughts that you would be better off or of hurting yourself in some way: not at all Total score: 0 Depression Screening Interpretation: Negative Depression Screening Done: Yes 30820 - PHQ-9 Billing: Yes Source: Developed by Drs. Bernardo Moses, Gia Forrester, Jose M Lorenzo and colleagues, with an educational seble from [employer]. Thrive Questionnaire Date Thrive assessed: 09/13/22 AUDIT C Alcohol Use Questionnaire (AUDIT-C) 1. How often do you have a drink containing alcohol?: 2-4 times a month 2. How many drinks containing alcohol do you have on a typical day when you are drinking?: 1 or 2 3. How often do you have six or more drinks on one occasion?: Never Total Score: 2 ROHITH-7 AMB Questionnaire ROHITH-7 Date ROHITH - 7 assessed: 09/13/22 Source: Developed by Drs. Bernardo Moses, Gia Forrester, Jose M Lorenzo and colleagues, with an educational seble from [employer]. Review of Systems Const Denies body aches, Denies chills, Denies excessive sweating, Denies fatigue, Denies fever(s) and Denies headache(s) Eyes Denies blurry vision ENT Denies dysphagia, Denies vertigo, Denies dizziness, Denies headache(s), Denies hearing loss and Denies tinnitus Card Denies chest pain, Denies chest pain with activity, Denies syncope, Denies irregular heart rhythm and Denies dyspnea Resp Denies chest congestion, Denies cough, Denies hemoptysis, Denies dyspnea and Denies wheezing GI Denies abdominal pain, Denies melena, Denies hematochezia, Denies coffee ground emesis, Denies dysphagia, Denies diarrhea, Denies nausea and Denies vomiting Denies urinary frequency, Denies dysuria, Denies urinary hesitancy and Denies urinary urgency Musc Denies arthralgias, Denies limited range of motion, Denies muscle cramps and Denies muscle weakness Skin/Breast Denies rash and Denies skin ulcer Neuro Denies Abnormal speech present, Denies confusion, Denies vertigo, Denies dizziness, Denies syncope, Denies headache(s), Denies memory loss and Denies seizure-like activity Psych Denies anxiety, Denies confusion, Denies depression, Denies memory loss, Denies panic attacks and Denies paranoia Endo Denies excessive sweating, Denies fatigue, Denies flushing, Denies polydipsia and Denies polyuria Aller/Immun Denies wheezing Physical exam (Primary Care) Vital Signs: Last Vital Signs Pulse 97 03/28/23 09:13 BP 102/62 03/28/23 09:13 Pulse Ox 96 03/28/23 09:13 Oxygen Delivery Method Room Air 03/28/23 09:13 BMI result Body Mass Index 28.9 Tobacco/Smoking Status: Tobacco use Status Tobacco use date assessed 09/13/22 03/28/23 09:14 Patient Tobacco Use Status Former Tobacco user 03/28/23 09:14 e-Cigarette/Vaping Use Never Used 03/28/23 09:14 PHQ-9: PHQ-9 Score PHQ-9: Total score 0 03/28/23 09:20 Depression Screening Interpretation: Negative Thrive Assessment: Date of Thrive Assessment Date Thrive assessed 09/13/22 03/28/23 09:14 Const General: cooperative, comfortable, no acute distress, alert and awake; No confusion Orientation/consciousness: oriented to person, oriented to place, patient oriented x3 and No confusion HENMT Head: Yes normocephalic Ears: external ears normal and TM's normal bilaterally Face and sinus: No sinus tenderness Mouth: Normal oral and palatal mucosa present and tongue normal Teeth and gingiva: dentition normal and gingiva normal Throat: Yes posterior oropharynx normal, Yes tonsils normal and Yes uvula midline Eyes Conjunctivae: conjunctivae normal Sclerae: sclerae normal Pupils: Equal, round and reactive pupils present EOM: EOMs intact bilaterally Direct Ophthalmoscopy: No no photophobia Neck Neck: Yes no lymphadenopathy, No tender and Yes no JVD Thyroid: Thyroid normal Carotids: no bruits Chest Chest palpation & inspection: no tenderness Chest/axillae images: 2 1. RAISED ROUGH TEXTURED SKIN LESION OVER MID UPPER CHEST. Resp Effort & Inspection: normal respiratory effort, no audible wheezes, not labored and no stridor Auscultation: no crackles, no rales, no rhonchi and no wheezes Cardio Jugular venous distension: no JVD Rate: regular rate, not bradycardic and not tachycardic Rhythm: regular rhythm Bruits: no carotid bruits Peripheral pulses: Peripheral pulses 2+ throughout GI Inspection: Yes normal to inspection, No abdominal wall ecchymosis and No visible herniation Palpation (GI): Soft to palpation, nontender, no guarding, not rigid and No hepatosplenomegaly present Auscultation: normoactive bowel sounds General: Yes no CVA tenderness Back/Spine/Pelvis Back: no CVA tenderness and No back tenderness Cervical Spine: cervical ROM normal Thoracic/Lumbar Spine: thoracic and lumbar spine normal to inspection, straight leg raise negative bilaterally, No thoraco-lumbar ROM limited and No lumbar spinal tenderness Skin Lesions: no lesions Rashes: no rashes Wounds: no wounds Neuro General: oriented to person, oriented to place, patient oriented x3, CN's II-XI intact bilaterally and No confusion Cranial nerves: Yes Equal, round and reactive pupils present and Yes Normal accommodation reflex present Cognition (Neuro): normal cognition Speech: No Abnormal speech present Gait exam (Neuro): Normal gait present Motor exam (neuro): 5/5 motor strength present throughout Extrem Right upper extremity: full ROM; no cyanosis Left upper extremity: full ROM; no cyanosis Right lower extremity: no edema Left lower extremity: no edema Psych Appearance: grossly normal Mental Status: mental status grossly normal Affect: normal affect Attitude: cooperative Thought process: Normal thought process present Assessment and Plan Assessment & Plan (1) Annual physical exam: Code(s): Z00.00 - Encounter for general adult medical examination without abnormal findings (2) HLD (hyperlipidemia): Code(s): E78.5 - Hyperlipidemia, unspecified Qualifiers: Hyperlipidemia type: mixed hyperlipidemia Qualified Code(s): E78.2 - Mixed hyperlipidemia Plan: Patient's most recent lipid panel showing elevated total cholesterol and LDL. Has been on simvastatin without any side effect. Will continue his current dose of simvastatin advised to do fasting labs to check her lipids. (3) Dysphagia: Code(s): R13.10 - Dysphagia, unspecified Qualifiers: Dysphagia type: esophageal phase Qualified Code(s): R13.19 - Other dysphagia Plan: Has recently underwent an endoscopy that did show esophageal ring. Balloon dilation was done and patient swallowing much better. Continues on pantoprazole 40 mg. (4) HTN (hypertension): Code(s): I10 - Essential (primary) hypertension Qualifiers: Hypertension type: primary hypertension Qualified Code(s): I10 - Essential (primary) hypertension Plan: Patient's blood pressure acceptable today in office. Will restart lisinopril 5 mg. Goal blood pressure to remain on for a 90 (5) Failed total knee arthroplasty: Code(s): T84.018A - Broken internal joint prosthesis, other site, initial encounter; Z96.659 - Presence of unspecified artificial knee joint Qualifiers: Encounter type: sequela Qualified Code(s): T84.018S - Broken internal joint prosthesis, other site, sequela; Z96.659 - Presence of unspecified artificial knee joint Plan: Continues to pain and bilateral knees worsen her left knee to which there has been replacement. She has follow-up with orthopedics though no further surgery recommended. She continues to be in pain especially with flexion and long periods of standing or walking. She has applying for [id number] placard. Will supply her with gabapentin to use for breakthrough pain. (6) Right hand paresthesia: Code(s): R20.2 - Paresthesia of skin Plan: Continues with worsening right hand paresthesias. Will send for EMG to evaluate for median nerve neuropathy. (7) Skin lesion of chest wall: Code(s): L98.9 - Disorder of the skin and subcutaneous tissue, unspecified Plan: Has noted a raised skin lesion over her mid chest. Does report a lot of sun exposure while vacationing in [place]. She is interested in seeing a director of collections and archives for possible biopsy of the skin lesion. (8) Opiate dependence: Code(s): F11.20 - Opioid dependence, uncomplicated Qualifiers: Substance use status: uncomplicated Qualified Code(s): F11.20 - Opioid dependence, uncomplicated Plan: Continues on Suboxone through a local Suboxone clinic. Orders: Orders 2 Lipid Panel Today E78.2 - Mixed hyperlipidemia NE electromyogram (EMG) Today R20.2 - Paresthesia of skin Referrals 2 Dermatology Referral L98.9 - Disorder of the skin and subcutaneous tissue, unspecified Medications: New 2 gabapentin 300 mg PO DAILY 30 days 30 caps 2RF pain, moderate M25.669 - Stiffness of unspecified knee, not elsewhere classified, T84.89XA - Other specified complication of internal orthopedic prosthetic devices, implants and grafts, initial encounter, Z96.659 - Presence of unspecified artificial knee joint Coding Level of Care Code Est Pt Prev Care 40-64y(32675) Diagnoses Annual physical exam Z00.00 Mixed hyperlipidemia E78.2 Hyperlipidemia type: mixed hyperlipidemia Esophageal dysphagia R13.19 Dysphagia type: esophageal phase Primary hypertension I10 Hypertension type: primary hypertension Failure of total knee replacement, sequela T84.018S; Z96.659 Encounter type: sequela Right hand paresthesia R20.2 Skin lesion of chest wall L98.9 Uncomplicated opioid dependence F11.20 Substance use status: uncomplicated
== END 2023-03-28 10:03 | disposition home or self-care (01) ==
PROVIDERS: Visit Provider Physician Assistant
DX: Z00.00 Encounter for general adult medical examination without abnormal findings (principal); F11.20 Opioid dependence, uncomplicated; E78.2 Mixed hyperlipidemia; R13.19 Other dysphagia; I10 Essential (primary) hypertension; T84.01 Broken internal joint prosthesis; Z96.659 Presence of unspecified artificial knee joint; R20.2 Paresthesia of skin; L98.9 Disorder of the skin and subcutaneous tissue, unspecified
CPT/HCPCS: 99396

== ENCOUNTER 2023-04-25 11:27 | Outpatient (REF) | payer MEDICARE, MEDICAID, SELFPAY ==
--- NOTE | ~2023-04-25 | MM_ITS ---
EXAMINATION: MM DIAGNOSTIC DIGITAL BREAST TOMOSYNTHESIS, BILATERAL CLINICAL INFORMATION: Follow-up clustered appearing benign nodular asymmetries and mild duct ectasia anterior right breast. Patient also due for bilateral screening. COMPARISON: Mammography: 10/25/2022, 04/19/2022, 12/14/2008; right breast ultrasound 04/26/2022. TECHNIQUE: Digital breast tomosynthesis is performed in both the craniocaudal and mediolateral oblique views along with computer-aided detection (CAD). Synthesized 2D images are generated from the tomosynthesis. FINDINGS: There are scattered areas of fibroglandular density (ACR BI-RADS breast composition Category b). Stable beaded ducts in the right retroareolar region with a few stable benign-appearing calcifications are unchanged. There are a few benign nodular asymmetries abutting this region in the anterior right breast extending into the mid right breast which are also unchanged and benign. There are no suspicious masses, suspicious grouped calcifications, or areas of architectural distortion in either breast. The parenchymal pattern is stable from prior exams. Prominent axillary lymph nodes have been previously evaluated as benign. MM/MM tomosynthesis diagnostic BI IMPRESSION: There are no significant changes from prior study. Benign findings right breast. No further follow-up required. Recommend the patient return to routine annual screening. ASSESSMENT: BI-RADS BI-RADS 2 - Benign Findings RECOMMENDATION: 1 year F/U Results were provided to the patient at time of visit by the technologist. This patient's information was entered into a reminder system with a target due date for their next mammogram.
== END 2023-04-25 11:28 | disposition home or self-care (01) ==
LOC: HO.MAMMO 11:27
PROVIDERS: PCP Physician Assistant; Visit Provider Physician Assistant
DX: N64.89 Other specified disorders of breast (principal)
CPT/HCPCS: 77062; 77066

== ENCOUNTER → 2023-04-25 11:30 | Outpatient (BNV) | payer MEDICARE, MEDICAID, SELFPAY | PROVIDERS: PCP Physician Assistant; Visit Provider Radiology Diagnostic Radiology | DX: R92.1 Mammographic calcification found on diagnostic imaging of breast (principal) | CPT/HCPCS: 77062; 77066; G0279 ==

== ENCOUNTER 2023-05-01 08:25 | Outpatient (REF) | payer MEDICARE, MEDICAID, SELFPAY ==
--- NOTE | 2023-05-01 08:29 | EMG_ITS ---
Please see scanned EMG / Nerve Conduction Report. MTDD
== END 2023-05-01 08:26 | disposition home or self-care (01) ==
LOC: HO.NEURO 08:25
PROVIDERS: PCP Physician Assistant; Visit Provider Physician Assistant
DX: R20.2 Paresthesia of skin (principal)
CPT/HCPCS: 95885; 95910

== ENCOUNTER 2023-05-09 09:44 | Day surgery (SDC) | payer MEDICARE, MEDICAID, SELFPAY ==
[2023-05-07 14:09] VITALS: BMI 28.9
--- NOTE | 2023-05-08 10:24 | HO.ANESPROP2 ---
Documented by User: Balbina Durant NP 05/08/23 10:26 HPI - Anesthesia Eval Consult details Narrative: 62yo F for Upper Endoscopy with Balloon Dilitation Suboxone daily PMFSH Active Problems Active Problems: All Active Problems (Updated 05/02/23 @ 13:37 by Dilan Lopez PA-C) Right carpal tunnel syndrome (Acute) Skin lesion of chest wall (Acute) Right hand paresthesia (Acute) Tendinopathy of left shoulder (Acute) Dysphagia (Acute) Breast cancer screening (Acute) HTN (hypertension) (Acute) Memory deficit (Acute) Excessive sweating (Acute) Dental abscess (Acute) Anxiety due to invasive procedure (Acute) Arthritis of carpometacarpal (CMC) joint of right thumb (Acute) Numbness and tingling in both hands (Acute) Dupuytren's contracture of right hand (Acute) Sciatica, left side (Acute) Impaired glucose metabolism (Acute) Iliotibial band syndrome, left leg (Acute) HLD (hyperlipidemia) (Acute) Annual physical exam (Acute) Breast cancer screening (Acute) Screening for hypothyroidism (Acute) Screening for hypercholesterolemia (Acute) Screening for diabetes mellitus (DM) (Acute) Colon cancer screening (Acute) Opiate dependence (Acute) Colon cancer screening (Acute) Failed total knee arthroplasty (Acute) Past Medical History Medical History De Quervain's tenosynovitis, right Postoperative stiffness of total knee replacement Former smoker GERD (gastroesophageal reflux disease) Opiate dependence Dysphagia Elevated cholesterol HTN (hypertension) Failed total knee arthroplasty Family History Family History Son Kidney malignancy Family history of problems with anesthesia: No Surgical History Surgical History Hx of total knee replacement History of esophagogastroduodenoscopy (EGD) History of Problems with Anesthesia: No Social History Social History (Updated 03/28/23 @ 09:38 by Dilan Lopez PA-C) Housing: House Alcohol intake: current Alcohol intake frequency: a few times a month Patient Tobacco Use Status: Former Tobacco user Quit Date: 2016 e-Cigarette/Vaping Use: Never Used Second Hand Smoke Exposure: No Substance Use Type: Marijuana Substance Use Frequency: Daily Have you been hit, kicked, punched, or otherwise hurt by someone within the past year? 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 Cognitive needs: No Hearing needs: No Vision needs: No Meds Allergies Allergy/AdvReac Type Severity Reaction Status Date / Time No Known Allergies Allergy Verified 03/28/23 09:30 [No Known Allergies*] Home Medications Medication Instructions Recorded Confirmed Last Taken Type buprenorphine 8 mg-naloxone 2 mg 1 film buccal DAILY 12/05/20 03/28/23 Unknown History sublingual film (Suboxone) Exam Height,Weight and Vital Signs: Height 5 ft 2 in Weight 71.668 kg Assessment and Plan Assessment Anesthesia Assessment: Chart Reviewed Final Anesthetic Review Family History of Problems with Anesthesia: No History of Problems with Anesthesia: No Documented by User: Roscoe Lomax MD 05/09/23 10:31 [facility] Past Medical History Medical History De Quervain's tenosynovitis, right Postoperative stiffness of total knee replacement Former smoker GERD (gastroesophageal reflux disease) Opiate dependence Dysphagia Elevated cholesterol HTN (hypertension) Failed total knee arthroplasty Family History Family History Son Kidney malignancy Surgical History Surgical History Hx of total knee replacement History of esophagogastroduodenoscopy (EGD) Social History Social History (Updated 03/28/23 @ 09:38 by Dilan Lopez PA-C) Housing: House Alcohol intake: current Alcohol intake frequency: a few times a month Patient Tobacco Use Status: Former Tobacco user Quit Date: 2017 e-Cigarette/Vaping Use: Never Used Second Hand Smoke Exposure: No Substance Use Type: Marijuana Substance Use Frequency: Daily Have you been hit, kicked, punched, or otherwise hurt by someone within the past year? 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 Cognitive needs: No Hearing needs: No Vision needs: No Meds Allergies Allergy/AdvReac Type Severity Reaction Status Date / Time No Known Allergies Allergy Verified 03/28/23 09:30 [No Known Allergies*] Home Medications Medication Instructions Recorded Confirmed Last Taken Type buprenorphine 8 mg-naloxone 2 mg 1 film buccal DAILY 12/05/20 03/28/23 Unknown History sublingual film (Suboxone) Exam Airway Mallampati Class: II TM Dist: <=3cm Neck ROM: Full Denture: Upper Heart: ok Lungs: ok Assessment and Plan Assessment Anesthesia Assessment: Anesthesia Plan Discussed Final Anesthetic Review NPO: Yes ASA Class: III Final Preanesthetic Review: No Changes in Pt Med Stat, Meds/Allgs Chart Reviewed, Consent Obtained/Reviewed and Anes Risks/Benef Reviewed Patient Risk: Intermediate Procedure Risk: Intermediate Anesthetic Plan Anesthetic Plan: Agree w/ Assess. and Plan and TIVA Disposition: Standard PACU
[2023-05-09 10:06] VITALS: BP 141/89; PULSE 119; RESP 18; TEMP 36.1; O2SAT 95
--- NOTE | 2023-05-09 10:06 | MHC.SHP ---
Pre-Procedural Eval Section A Date of Service: 05/09/23 Section B Chief Complaint: Esophageal obstruction Relevant Family History (Specify if Yes): No Relevant Social History: None Present Medications: see Short Stay Collaborative assessment Medical History: Significant History (hypercholesteremia, hypertension) History of Previous Operations: Relevant previous surgery/procedure and date(s) (knee arthroplasty ) Allergies: Allergies Allergy/AdvReac Type Severity Reaction Status Date / Time No Known Allergies Allergy Verified 03/28/23 09:30 [No Known Allergies*] Review of Systems Sugical H&P ROS: Negative: Constitution, Cardiovascular, Respiratory, Neurological, Psychiatric, Hem-Onc, Allergic/Immunologic, Gastrointestinal, Genitourinary, Musculoskeletal, Integumentary, Endocrine and Eyes/Ears/Nose/Throat Exam Surgical H&P Exam: Normal: HEENT, Normal: Heart, Normal: Lungs, Normal: Extremities, Normal: Abdomen, Normal: Skin and Normal: Neurological Plan Diagnosis/Plan: Unchanged I have reviewed the history and physical and performed a pertinent physical examination on my patient. No changes have occurred unless specified. Time Spent With Patient Time: Total time managing care of this patient today ____ minutes.
[2023-05-09] MEDS: Lactated Ringers 1,000 ML 100 ML IVCONT (10:14)
--- NOTE | 2023-05-09 10:23 | W.PM.OPN ---
Operative Note Operative Note Date of Service: 05/09/23 Narrative: Procedure Description: EGD Indication: dysphagia Anesthesia: MAC FLEXIBLE TRANSORAL UPPER GASTROINTESTINAL ENDOSCOPY UPPER ENDOSCOPY Consent: Indications for the procedure and potential complications of bleeding, perforation, reaction to medications and missed diagnosis were discussed with the patient and informed consent was obtained. Instrument: Olympus GIF H 190 J mid size upper endoscope Monitoring: Vital signs and clinical assessment, continuous EKG monitoring, Pulse oximetry, Carbon Dioxide monitoring and blood pressure monitoring were done throughout the procedure. Procedure: The patient was placed in the left lateral decubitis position and pre-procedure medications were administered and a bite block was placed. The endoscope was inserted into the mouth and advanced under direct vision to the third part of duodenum. A careful inspection was made as the upper endoscope was withdrawn including a retroflexed examination of the proximal stomach; Findings and interventions are described below. Findings: Larynx:normal Esophagus: GE junction at 34 cm, diaphragm hiatus at 38 cm, consistent with 4 cm fixed hiatal hernia,s chatzki ring noted and dilated to 19 mm with slight tear seen, UES also dilated to 19 mm with small tear seen. Stomach: Bile acid refluxate noted, mild erythema. Grade 2 flap valve on retroflexed examination of the cardia. Duodenum: Normal bulb and descending duodenum, Intervention: balloon dilation Impression/Findings: hiatal hernia schatzki ring bile acid refluxate PLAN: reflux precautions consider hernia repair PPI adherence
[2023-05-09 11:02] VITALS: BP 107/86; PULSE 115; RESP 16; TEMP 36.8; O2SAT 94
[2023-05-09] MEDS: Acetaminophen 1,000 MG/100 ML PIGGYBACK 400 MG IV (11:05)
[2023-05-09] MEDS: Mag&Al/Sim/Diphenhyd/Lidocaine 10 ML ORAL.SUSP PO (11:06)
[2023-05-09 11:15] VITALS: BP 155/65; PULSE 94; RESP 16; O2SAT 99
[2023-05-09 11:30] VITALS: BP 137/77; PULSE 84; RESP 16; TEMP 36.6; O2SAT 93
== END 2023-05-09 12:24 | disposition home or self-care (01) ==
PROVIDERS: PCP Physician Assistant; Visit Provider Internal Medicine Gastroenterology
PROC: (CPT 43249; principal; 2023-05-09 13:10)
DX: K22.2 Esophageal obstruction (principal); K44.9 Diaphragmatic hernia without obstruction or gangrene; E78.70 Disorder of bile acid and cholesterol metabolism, unspecified; K21.9 Gastro-esophageal reflux disease without esophagitis; E78.00 Pure hypercholesterolemia, unspecified; I10 Essential (primary) hypertension; K59.03 Drug induced constipation; Z79.899 Other long term (current) drug therapy; Z87.891 Personal history of nicotine dependence
CPT/HCPCS: 43249; C1726; J0131; J1885; J2704; J3010

== ENCOUNTER → 2023-05-09 09:44 | Outpatient (BNV) | payer MEDICARE, MEDICAID, SELFPAY | PROVIDERS: PCP Physician Assistant; Visit Provider Internal Medicine Gastroenterology | DX: R13.10 Dysphagia, unspecified (principal); K22.2 Esophageal obstruction; K29.70 Gastritis, unspecified, without bleeding | CPT/HCPCS: 43249 ==

== ENCOUNTER 2023-06-07 08:15 | Outpatient (AMB) | payer MEDICARE, MEDICAID, SELFPAY ==
--- NOTE | 2023-06-07 13:30 | MHC.OFFVISWM ---
Intake Intake Visit Reasons: TV Hiatal Hernia - Dr. Krueger Ref Allergies No Known Allergies [No Known Allergies*] Allergy (Verified 06/07/23 13:30) Medication List - Last Reconciled 06/07/23 by Allen Meraz MD buprenorphine-naloxone 8-2 mg (Suboxone) 1 film buccal DAILY gabapentin 300 mg PO DAILY 30 days lisinopril 5 mg PO DAILY Magic Mouthwash Diphen/Lido/Antacid 1:1:1 10 mL PO QID pantoprazole 40 mg PO DAILY polyethylene glycol 3350 (Miralax) 17 grams PO DAILY simvastatin 20 mg PO DAILY 90 days HPI TV Hiatal Hernia - Dr. Krueger Ref HPI Details Start time: 1.18pm, End time: 1.48pm ?I spent 25 minutes speaking with the patient on the phone plus an additional 5 minutes reviewing and updating records for a total of 30 minutes HPI Comments History of Present Illness Details Complains of mid-epigastric pain with movements. Denies any pain with eating or drinking. Denies heartburn or regurgitation. States that the Pantoprazole has worked very well and since the last dilation she is not having any dysphagia. Reviewed: recent EGD: 4-5cm hiatal hernia UGI in October: GERD, small HH, narrowing at the GEJ, hypomotility PFSH Medical History (Updated 06/07/23 @ 13:45 by Allen Meraz MD) De Quervain's tenosynovitis, right Postoperative stiffness of total knee replacement Former smoker GERD (gastroesophageal reflux disease) Opiate dependence Dysphagia Elevated cholesterol HTN (hypertension) Failed total knee arthroplasty Surgical History Hx of total knee replacement History of esophagogastroduodenoscopy (EGD) Family History Son Kidney malignancy Social History (Updated 03/28/23 @ 09:38 by Dilan Lopez PA-C) Housing: House Alcohol intake: current Alcohol intake frequency: a few times a month Patient Tobacco Use Status: Former Tobacco user Quit Date: 2016 e-Cigarette/Vaping Use: Never Used Second Hand Smoke Exposure: No Substance Use Type: Marijuana service: No Current occupational status: employed 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 Cognitive needs: No Hearing needs: No Vision needs: No Assessment & Plan Assessment & Plan (1) Diaphragmatic hernia: Code(s): K44.9 - Diaphragmatic hernia without obstruction or gangrene Qualifiers: Obstruction and gangrene presence: without obstruction or gangrene Qualified Code(s): K44.9 - Diaphragmatic hernia without obstruction or gangrene Plan: Since the patient does not seem to have any specific symptoms from the diaphragmatic hernia and she is satisfied with the improvement she has seen from the recent endoscopic dilation and the use of Pantoprazole, I do not recommend surgical repair of the hernia at this time. I asked her to contact my office if she develops new symptoms related to the hernia. I also don't think that the pain she is experiencing at the epigastric area with movements is related to the hernia and certainly there would be no guarantee that this pain would be resolved if we decided to repair the hernia. The patient understands and agrees with the plan. Telehealth Telehealth Location of provider rendering services: practice address Location of patient: address on file Patient Identification confirmed using: Name, : Yes Telehealth method: voice only Patient verbally consented to treatment: Yes Patient verbally consented to billing insurance company: Yes Patient informed of any privacy concerns related to visit: Yes Minutes spent on Phone/Video with Pt.: 30 Coding Level of Care Code Tele New Pt Level 3 (65395) Diagnoses Diaphragmatic hernia without obstruction and without gangrene K44.9 Obstruction and gangrene presence: without obstruction or gangrene Time Spent (min) 30
== END 2023-06-07 13:49 | disposition home or self-care (01) ==
LOC: HO.HBS 08:16
PROVIDERS: PCP Physician Assistant; Visit Provider Surgery
DX: K44.9 Diaphragmatic hernia without obstruction or gangrene (principal)
CPT/HCPCS: 99443

== ENCOUNTER → 2023-06-07 08:15 | Outpatient (BNVA) | payer MEDICARE, MEDICAID, SELFPAY | PROVIDERS: PCP Physician Assistant; Visit Provider Surgery ==

== ENCOUNTER 2023-06-26 09:01 | Outpatient (AMB) | payer MEDICARE, MEDICAID, SELFPAY ==
--- NOTE | 2023-06-26 09:11 | A.OFFVIS_ITS ---
Intake Vital Signs 06/26/23 09:18 Height 5 ft 2 in Intake Visit Reasons: new Prob-Carpal tunnel syndrome, right Intake Note: Debby 62 yr old female presents today for a new Problem visit for her Carpal tu nnel syndrome of right hand. States symptoms started about 1year ago and has worsen especially at night time. EMG done and would like to discuss surgery. Allergies No Known Allergies [No Known Allergies*] Allergy (Verified 06/26/23 09:18) HPI new Prob-Carpal tunnel syndrome, right HPI Details Debby is a 62 year old right hand dominant woman who returns for a NCS review of her right hand numbness. She complains of numbness in her right thumb, index, and middle fingers. She says her symptoms are constant and worse at night. She would like to discuss surgery. 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 She would like to continue working after surgery as she tends to only sees a few clients during her shift. She enjoys Gardening in her spare time. She is on Suboxone and is taking Gabapentin, with some relief. [facility] Medical History (Updated 06/26/23 @ 09:37 by [place]) De Quervain's tenosynovitis, right Postoperative stiffness of total knee replacement Former smoker GERD (gastroesophageal reflux disease) Opiate dependence Dysphagia Elevated cholesterol HTN (hypertension) Failed total knee arthroplasty Surgical History Hx of total knee replacement History of esophagogastroduodenoscopy (EGD) Family History Son Kidney malignancy Social History Housing: House Alcohol intake: current Alcohol intake frequency: a few times a month Patient Tobacco Use Status: Former Tobacco user Quit Date: 2016 e-Cigarette/Vaping Use: Never Used Second Hand Smoke Exposure: No Substance Use Type: Marijuana service: No Current occupational status: employed 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 Normal sensation in the ulnar nerve distribution. Positive Tinel's test Mild thenar wasting No intrinsic wasting. Good APB muscle belly firing and finger cross. Positive thumb compression test of the wrist Vascular: Cap refill brisk ROM: Can bring fingers closed to a fist and back out to full extension. She can place her hand flat down on a surface without difficulty No visible or palpable locking or catching Dupuytrens nodule in the palm, with an early cord extending towards the ring finger Nerve Conduction Study: Severe right carpal tunnel syndrome Dr. Walton 05/01/23 Psych Appearance: grossly normal Affect: normal affect Attitude: cooperative Assessment & Plan Assessment & Plan (1) Arthritis of carpometacarpal (CMC) joint of right thumb: Code(s): M18.11 - Unilateral primary osteoarthritis of first carpometacarpal joint, right hand (2) Right carpal tunnel syndrome: Code(s): G56.01 - Carpal tunnel syndrome, right upper limb (3) Dupuytren's disease of palm of right hand: Code(s): M72.0 - Palmar fascial fibromatosis [Dupuytren] Plan Assessment & Plan: 1. Right Carpal tunnel syndrome, severe With dense numbness & mild thenar atrophy I educated her about this condition I discussed operative and non-operative treatment options The patient would like to proceed with surgery The risks and benefits of operative treatment were discussed with the patient and the patient wishes to proceed with surgery. These risks include, but are not limited to risk of damage to blood vessels, nerves, tendons, infection, recurrence, incomplete relief of preoperative symptoms, persistent pain, possib le need for further surgery and the risks associated with regional blocks and anesthesia. The plan is to take the patient to the operating room sometime in the next few weeks for the following procedures: 1. Right carpal tunnel release, under local All of the preoperative paperwork including the consent was reviewed today. All the patient's questions were answered. The patient understands that they will be contacted by our tissue inserter soon to schedule this procedure She denies Diabetes, blood thinners, asthma, heart, lung, kidney issues She has a hx of opioid use, and is currently on Suboxone. 2. Right Basal joint arthritis I educated her about this condition Not symptomatic today If her thumb continues to be a problem we can get X-rays and discuss a possible steroid injection. 3. Right hand Dupuytren's nodule with an early cord forming in line with the ring finger No contractures at this time I educated her about this condition This can be managed conservatively for now Scribed for Mirna Garcias MD by [place], medical equipment technician, on 06/26/23 at 9:30 AM, EST. Coding Level of Care Code Est Pt Level 4 (00830) Diagnoses Arthritis of carpometacarpal (CMC) joint of right thumb M18.11 Right carpal tunnel syndrome G56.01 Dupuytren's disease of palm of right hand M72.0
== END 2023-06-26 09:43 | disposition home or self-care (01) ==
PROVIDERS: PCP Physician Assistant; Visit Provider Orthopaedic Surgery
DX: M18.11 Unilateral primary osteoarthritis of first carpometacarpal joint, right hand (principal); G56.01 Carpal tunnel syndrome, right upper limb; M72.0 Palmar fascial fibromatosis [Dupuytren]
CPT/HCPCS: 99214

== ENCOUNTER → 2023-06-26 09:01 | Outpatient (BNVA) | payer MEDICARE, MEDICAID, SELFPAY | PROVIDERS: PCP Physician Assistant; Visit Provider Orthopaedic Surgery | DX: G56.01 Carpal tunnel syndrome, right upper limb (principal); M18.11 Unilateral primary osteoarthritis of first carpometacarpal joint, right hand; M72.0 Palmar fascial fibromatosis [Dupuytren] | CPT/HCPCS: 99212 ==

== ENCOUNTER 2023-09-05 08:24 | Day surgery (SDC) | payer MEDICARE, MEDICAID, SELFPAY ==
--- NOTE | 2023-09-05 08:24 | W.PM.OPN ---
Operative Note Operative Note Date of Service: 09/05/23 Narrative: Preop diagnosis: 1. Right Carpal tunnel syndrome Postop diagnosis: same Procedure: 1. Right Carpal tunnel release Surgeon: Mirna Garcias MD Anesthesia: local block using 1% lidocaine with epinephrine Findings: Thickened transverse carpal ligament. EBL: Less than 5 mL Specimens: None Complications: None Disposition: Brought to recovery room in stable condition Plan: Follow-up for 10-14 days for wound check and suture removal Indications: The patient is 62 years old, with right carpal tunnel syndrome that has been unresponsive to nonoperative management. The risks and benefits of operative treatment including but not limited to risk of damage to blood vessels, nerves, tendons, infection, persistent pain, persistent symptoms, or possible need for additional surgery were discussed with the patient and the patient wishes to proceed with surgery. Procedure: Once consent was obtained a local block was performed using a combination of 1% lidocaine with epinephrine. The patient was then brought back to the operating suite and placed on the operative table in supine position. The right upper extremity was prepped and draped in a standard surgical fashion. Once assured that we had a good block, a 2.0 cm longitudinal incision was made centered over the carpal tunnel. The incision was made through the skin to the subcutaneous tissues using a #15 blade. Dissection was made down to the level of the transverse carpal ligament with care being taken to protect the palmar cutaneous nerve. Once the transverse carpal ligament was clearly visualized, a longitudinal incision was made in the transverse carpal ligament 1st using a #15 blade, then using tenotomy scissors under direct visualization. Care was taken to look for and protect the motor branch of the median nerve when seen in this area. Once satisfied with our carpal tunnel release the wound was copiously irrigated with normal saline and hemostasis was obtained with a brief period of local pressure. The skin edges were reapproximated with some 5.0 nylon suture material and a sterile dressing was applied. The patient appears to have tolerated the procedure well and with no complications. All digits were well vascularized at the conclusion of the case.
[2023-09-05 08:35] VITALS: BP 151/89; PULSE 73; RESP 20; TEMP 36.1; O2SAT 97; BMI 31.7
--- NOTE | 2023-09-05 08:46 | PC.NURSE ---
pt tolerated block well timeout prior
--- NOTE | 2023-09-05 09:09 | MHC.SHP ---
Pre-Procedural Eval Section A - 24 Hr Update-Section A only Date of Service: 09/05/23 Section B - Complete if H&P > 30 days Chief Complaint: Carpal tunnel syndrome, right upper limb Allergies: Allergies Allergy/AdvReac Type Severity Reaction Status Date / Time No Known Allergies Allergy Verified 06/26/23 09:18 [No Known Allergies*] Plan I have reviewed the history and physical and performed a pertinent physical examination on my patient. No changes have occurred unless specified. Time Spent With Patient Time: Total time managing care of this patient today ____ minutes.
[2023-09-05 10:18] VITALS: BP 144/89; PULSE 107; RESP 16; O2SAT 97
== END 2023-09-05 10:21 | disposition home or self-care (01) ==
PROVIDERS: PCP Physician Assistant; Visit Provider Orthopaedic Surgery
PROC: (CPT 64721; principal; 2023-09-05 15:30)
DX: G56.01 Carpal tunnel syndrome, right upper limb (principal); R20.0 Anesthesia of skin; M18.11 Unilateral primary osteoarthritis of first carpometacarpal joint, right hand; M72.0 Palmar fascial fibromatosis [Dupuytren]; I10 Essential (primary) hypertension; E78.00 Pure hypercholesterolemia, unspecified; K21.9 Gastro-esophageal reflux disease without esophagitis; Z79.899 Other long term (current) drug therapy; F11.20 Opioid dependence, uncomplicated; Z87.891 Personal history of nicotine dependence
CPT/HCPCS: 64721; J0171; J2795

== ENCOUNTER → 2023-09-05 08:24 | Outpatient (BNV) | payer MEDICARE, MEDICAID, SELFPAY | PROVIDERS: PCP Physician Assistant; Visit Provider Orthopaedic Surgery | DX: G56.01 Carpal tunnel syndrome, right upper limb (principal) | CPT/HCPCS: 64721 ==

== ENCOUNTER 2023-09-17 13:10 | Outpatient (AMB) | payer MEDICARE, MEDICAID, SELFPAY ==
--- NOTE | 2023-09-17 13:43 | MHC.OFFVIS ---
Vital Signs 09/17/23 13:44 Height 5 ft 2 in Weight 173 lb BMI 31.6 Intake Visit Reasons: PO RT CTR 09/05/23 AR Intake Note: Debby 62 yr old female presents today for her PO visit for her right CTR 09/05/23 AR. States CTS has improved and is doing well? Sutures removed and steri strips applied. Allergies No Known Allergies [No Known Allergies*] Allergy (Verified 09/17/23 14:03) HPI HPI PO RT CTR 09/05/23 AR: Details: Debby is a 62 year old right hand dominant woman who returns S/P right carpal tunnel release, DOS: 09/05/23. She says her sensation has improved slightly, but she still has dense numbness in her fingers. She says she has improvement of her nighttime symptoms. She complains of worsening numbness in the median nerve distribution of the left hand. 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 She would like to continue working after surgery as she tends to only sees a few clients during her shift. She enjoys Gardening in her spare time. She is on Suboxone and is taking Gabapentin, with some relief. [facility] Medical History (Updated 09/17/23 @ 14:02 by [place]) De Quervain's tenosynovitis, right Postoperative stiffness of total knee replacement Former smoker GERD (gastroesophageal reflux disease) Opiate dependence Dysphagia Elevated cholesterol HTN (hypertension) Failed total knee arthroplasty Surgical History Hx of total knee replacement History of esophagogastroduodenoscopy (EGD) Family History Son Kidney malignancy Social History Housing: House Alcohol intake: current Alcohol intake frequency: a few times a month Patient Tobacco Use Status: Former Tobacco user Quit Date: 2016 e-Cigarette/Vaping Use: Never Used Second Hand Smoke Exposure: No Substance Use Type: Marijuana service: No Current occupational status: employed 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 Sutures removed and Steri-Strips applied Improving but not yet normal sensation in the median nerve distribution of the right hand Mild thenar wasting Concerning the left hand: She has numbness in the median nerve distribution today Normal sensation in the ulnar nerve distribution Dupuytrens nodule in the palm, with an early cord extending towards the ring finger Cap refill brisk Nerve Conduction Study: Right side only Severe right carpal tunnel syndrome Dr. Walton 05/01/23 Psych Appearance: grossly normal Affect: normal affect Attitude: cooperative Assessment & Plan Assessment & Plan (1) Arthritis of carpometacarpal (CMC) joint of right thumb: Code(s): M18.11 - Unilateral primary osteoarthritis of first carpometacarpal joint, right hand Category: Medical (2) Carpal tunnel syndrome of left wrist: Code(s): G56.02 - Carpal tunnel syndrome, left upper limb Category: Medical (3) Right carpal tunnel syndrome: Code(s): G56.01 - Carpal tunnel syndrome, right upper limb Category: Medical (4) Dupuytren's disease of palm of right hand: Code(s): M72.0 - Palmar fascial fibromatosis [Dupuytren] Category: Medical Plan Assessment & Plan: 1. Right Carpal tunnel syndrome, S/P release DOS: 09/05/23 Pre-operatively with dense numbness & mild thenar atrophy Now with dense numbness, but improving slightly The patient appears to be doing well post-operatively I educated her about the post-operative course I explained the signs and symptoms of infection, if the patient develops any new or worsening erythema, drainage, pain, or warmth they should contact the clinic or attend the ED. I discussed activity modifications, she is to lift nothing heavier than a cellphone for the next two weeks She will perform gentle ROM exercises at home She should avoid any underwater activities for the next 5 days She should gently massage about the incision site to reduce the risk of hypersensitivity I recommend she discontinue her Gabapentin at this time 2. Left carpal tunnel syndrome, based on history and PE Symptoms intermittent, but daily, worse at night Numbness today in clinic No small finger numbness I educated her about this condition I discussed operative and non-operative treatment options The patient would like to proceed with surgery The risks and benefits of operative treatment were discussed with the patient and the patient wishes to proceed with surgery. These risks include, but are not limited to risk of damage to blood vessels, nerves, tendons, infection, recurrence, incomplete relief of preoperative symptoms, persistent pain, possible need for further surgery and the risks associated with regional blocks and anesthesia. The plan is to take the patient to the operating room sometime in the next few weeks for the following procedures: 1. Left carpal tunnel release, under local All of the preoperative paperwork including the consent was reviewed today. All the patient's questions were answered. The patient understands that they will be contacted by our receptionist scheduler soon to schedule this procedure She denies Diabetes, blood thinners, asthma, heart, lung, kidney issues She is on Suboxone 3. Right Basal joint arthritis I educated her about this condition Not symptomatic today If her thumb continues to be a problem we can get X-rays and discuss a possible steroid injection. 4. Right hand Dupuytren's nodule with an early cord forming in line with the ring finger No contractures at this time I educated her about this condition This can be managed conservatively for now Scribed for Mirna Garcias MD by [place], medical insurance claims processor, on 09/17/23 at 2:00 PM, EST. Coding Level of Care Code Est Pt Level 4 (41986) Diagnoses Arthritis of carpometacarpal (CMC) joint of right thumb M18.11 Carpal tunnel syndrome of left wrist G56.02 Right carpal tunnel syndrome G56.01 Dupuytren's disease of palm of right hand M72.0
[2023-09-17 13:44] VITALS: BMI 31.6
== END 2023-09-17 15:28 | disposition home or self-care (01) ==
PROVIDERS: PCP Physician Assistant; Visit Provider Orthopaedic Surgery
DX: M18.11 Unilateral primary osteoarthritis of first carpometacarpal joint, right hand (principal); G56.03 Carpal tunnel syndrome, bilateral upper limbs; M72.0 Palmar fascial fibromatosis [Dupuytren]
CPT/HCPCS: 99214

== ENCOUNTER → 2023-09-17 13:10 | Outpatient (BNVA) | payer MEDICARE, MEDICAID, SELFPAY | PROVIDERS: PCP Physician Assistant; Visit Provider Orthopaedic Surgery | DX: Z47.89 Encounter for other orthopedic aftercare (principal); G56.01 Carpal tunnel syndrome, right upper limb; M18.11 Unilateral primary osteoarthritis of first carpometacarpal joint, right hand; M72.0 Palmar fascial fibromatosis [Dupuytren] | CPT/HCPCS: 99212 ==

== ENCOUNTER 2023-10-28 06:37 | Outpatient (REF) | payer MEDICARE, MEDICAID, SELFPAY ==
[2023-10-28 08:20] LABS: Cholesterol 225 mg/dL (<200); HDL Cholesterol 53 mg/dL (>40); LDL Cholesterol Calculated 122 mg/dL (<100); Triglycerides 253 mg/dL (<150)
== END 2023-10-28 06:38 | disposition home or self-care (01) ==
LOC: HO.LAB 06:37
PROVIDERS: PCP Physician Assistant; Visit Provider Physician Assistant
DX: E78.2 Mixed hyperlipidemia (principal)
CPT/HCPCS: 36415; 80061

== ENCOUNTER 2023-10-29 14:13 | Outpatient (AMB) | payer MEDICARE, MEDICAID, SELFPAY ==
[2023-10-29 14:29] VITALS: BP 136/76; PULSE 114; O2SAT 95; BMI 31.0
--- NOTE | 2023-10-29 14:29 | A.OFFPC_ITS ---
Vital Signs 10/29/23 14:29 Height 5 ft 2 in Weight 169 lb 8 oz BMI 31.0 BP 136/76 Blood Pressure Location Lt brachial Position Sitting Pulse 114 H Pulse Source Pulse Oximeter Pulse Oximetry (%) 95 Oxygen Delivery Method Room Air Intake Visit Reasons: f/u HTN [employer] Required: No Accompanied by: Self / Same As Patient Allergies No Known Allergies [No Known Allergies*] Allergy (Verified 10/29/23 14:49) Medication List - Last Reconciled 10/29/23 by Dilan Lopez PA-C buprenorphine-naloxone 8-2 mg (Suboxone) 1 film buccal DAILY gabapentin 300 mg PO DAILY 30 days lisinopril 5 mg PO DAILY Magic Mouthwash Diphen/Lido/Antacid 1:1:1 10 mL PO QID pantoprazole 40 mg PO DAILY polyethylene glycol 3350 (Miralax) 17 grams PO DAILY simvastatin 20 mg PO DAILY 90 days Tobacco use date assessed: 10/29/23 Dental Screening Dental Screen Date: 10/29/23 Did you have a dental visit in the last 12 months?: Yes Did you have a dental problem in the last 6 months where you did not have access to dental care?: No Was dental information given to patient?: Patient has dentist HPI f/u HTN HPI Details Patient is a 62-year-old female here today for a follow-up visit.? Patient has a past medical history significant for hyperlipidemia, LEft knee deformity/ osteoarthritis,? opiate dependence and on Suboxone to a local clinic. GERD: Recently underwent endoscopy and was found to esophageal stricture. Balloon dilation was done continues to follow up with Gastroenterology. Advised on stay way from NSAIDs and continue PPI therapy. Concern-> reports a skin lesion on her mid chest. She is concerned about skin cancer would like to see a clay modeler for evaluation. carpal tunnel syndroME: followed by Orthopedics and is due for carpal tunnel release on left wrist. .. Hypertension: Continues on 5 mg lisinopril with good control of her blood pressure. Blood pressure seems to have normalized. .. Knee osteoarthritis status post replacement: continues to left knee pain swelling and decreased range of motion.? Has seen her orthopedic and was advised to to start physical therapy.? Recommendations also made for possible evaluation by pain management. X-ray knee showing--> Left knee replacement. Question increasing lucency of the superior patella. Small joint effusion.? ?She has had this is an existing condition over the last several years since knee replacement and revisions.? Of note-- > Prev PCP was Dr Pederson.? She has a past history left knee osteoarthritis requiring total knee replacement though was complicated and needed reconstructive surgery.? She was dependent on opiates and now has trans ition to Suboxone to which she gets from a local [facility]. She continues to be in pretty severe pain in both bilateral knees to which she reports Suboxone is not helpful for her pain relief. SHE NOW ADMITS TO DRINKING MELISSA ON A DAILY BASIS TO HELP PAIN... We did discuss possibly transitioning to tramadol 2 to 3 times a day for pain relief to which she is open to. She would also like to see pain management clinic to discuss pain reduction modalities. /.. Hyperlipidemia:? Patient was started on low potency? statin therapy and her fasting lipid panel much improved., .. Hypertension: blood pressure today in office acceptable. .. Former smoker; she does report having some shortness of breath with minimal exertion as of late. Denies any chest pain. She does report quitting smoking 2016 though was a smoker for 5 years. Will supply patient with an albuterol inhaler to use on an as needed basis. PLAN: Will send for PFT testing to evaluate for evidence of obstructive pulmonary disease. Laboratory Tests 03/02/21 09/04/21 03/15/22 10:27 06:20 09:49 Fasting Glucose 117 H Triglycerides 253 Cholesterol 281 208 D 283 D LDL Cholesterol, C alc 173 120 173 10/28/23 06:57 Fasting Glucose Triglycerides 253 H Cholesterol 225 H LDL Cholesterol, C alc 122 H [facility] Medical History (Updated 10/29/23 @ 15:03 by Dilan Lopez PA-C) De Quervain's tenosynovitis, right Postoperative stiffness of total knee replacement Former smoker GERD (gastroesophageal reflux disease) Opiate dependence Dysphagia Elevated cholesterol HTN (hypertension) Failed total knee arthroplasty Surgical History Hx of total knee replacement History of esophagogastroduodenoscopy (EGD) Family History Son Kidney malignancy Social History Housing: House Alcohol intake: current Alcohol intake frequency: a few times a month Patient Tobacco Use Status: Former Tobacco user e-Cigarette/Vaping Use: Never Used Second Hand Smoke Exposure: No Substance Use Type: Marijuana service: No Current occupational status: employed 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 1. Little interest or pleasure in doing things: not at all 2. Feeling down, depressed, or hopeless: not at all 3. Trouble falling or staying asleep, or sleeping too much: not at all 4. Feeling tired or having little energy: not at all 5. Poor appetite or overeating: not at all 6. Feeling bad about yourself - or that you are a failure or have let yourself or your family down: not at all 7. Trouble concentrating on things, such as reading the newspaper or watching television: not at all 8. Moving or speaking so slowly that other people could have noticed. Or the opposite - being so fidgety or restless that you have been moving around a lot more than usual: not at all 9. Thoughts that you would be better off or of hurting yourself in some way: not at all Total score: 0 Depression Screening Interpretation: Negative Depression Screening Done: Yes 89982 - PHQ-9 Billing: Yes Source: Developed by Drs. Bernardo Moses, Gia Forrester, Jose M Lorenzo and colleagues, with an educational seble from [employer]. Thrive Questionnaire Date Thrive assessed: 10/29/23 I am a: Patient What is your living situation today?: I have a steady place to live Within the past 12 months, did the food you bought not last and you didn't have the money to get more?: Never true Within the past 12 months, did you worry whether your food would run out before you got money to buy more?: Never true Do you have trouble paying for medicines?: No Do you have trouble getting transportation to medical appointments?: No Do you have trouble paying your heating and electricity bill?: No Do you have trouble taking care of your child, family member or friend?: No Do you have trouble with day-to-day activities such as bathing, preparing meals, shopping, managing finances, etc.?: No Are you currently unemployed and looking for a job?: No Are you interested in more education?: No Please select the resources that you would like help with: None Currently or been in a relationship where the following occur: no concerns reported THRIVE Score: 0 AUDIT C Alcohol Use Questionnaire (AUDIT-C) 1. How often do you have a drink containing alcohol?: 2-4 times a month 2. How many drinks containing alcohol do you have on a typical day when you are drinking?: 1 or 2 3. How often do you have six or more drinks on one occasion?: Never Total Score: 2 ROHITH-7 AMB Questionnaire ROHITH-7 Date ROHITH - 7 assessed: 10/29/23 Feeling nervous, anxious, or on edge: 0 = Not at all Not being able to stop or control worryin = Not at all Worrying too much about different things: 0 = Not at all Trouble relaxin = Not at all Being so restless that it is hard to sit still: 0 = Not at all Becoming easily annoyed or irritable: 0 = Not at all Feeling afraid as if something awful might happen: 0 = Not at all Total ROHITH-7 score (0-4 normal; 5-9 mild; 10-14 moderate; 15-21 severe): 0 Source: Developed by Drs. Bernardo Moses, Gia Forrester, Jose M Lorenzo and colleagues, with an educational seble from [employer]. ROHITH-7 Assessment Billing ROHITH-7 Assessment Tool: ROHITH-7 Assessment 57209 Review of Systems Const Denies headache(s) Eyes Denies loss of vision ENT Denies vertigo, Denies dizziness, Denies headache(s) and Denies sore throat Card Denies chest pain, Denies leg edema and Denies lightheadedness Resp Denies cough, Denies hemoptysis and Denies wheezing GI Denies abdominal pain, Denies melena, Denies constipation, Denies diarrhea and Denies vomiting Denies urinary frequency, Denies dysuria and Denies urinary urgency Musc Denies arthralgias, Denies joint swelling, Denies numbness and Denies tingling Neuro Denies Abnormal speech present, Denies behavioral changes, Denies vertigo, Denies dizziness, Denies headache(s), Denies loss of vision, Denies memory loss, Denies numbness and Denies tingling Psych Denies anxiety, Denies behavioral changes, Denies depression, Denies memory loss and Denies panic attacks Néstor/Lymph Denies easy bleeding and Denies easy bruising Aller/Immun Denies wheezing Physical exam (Primary Care) Vital Signs: Last Vital Signs Pulse 114 H 10/29/23 14:29 BP 136/76 10/29/23 14:29 Pulse Ox 95 10/29/23 14:29 Oxygen Delivery Method Room Air 10/29/23 14:29 BMI result Body Mass Index 31.0 Tobacco/Smoking Status: Tobacco use Status Tobacco use date assessed 10/29/23 10/29/23 14:34 Patient Tobacco Use Status Former Tobacco user 10/29/23 14:34 e-Cigarette/Vaping Use Never Used 10/29/23 14:34 PHQ-9: PHQ-9 Score PHQ-9: Total score 0 10/29/23 14:47 Depression Screening Interpretation: Negative Thrive Assessment: Date of Thrive Assessment Date Thrive assessed 10/29/23 10/29/23 14:34 Currently or been in a relationship where the following occur: no concerns reported Const General: healthy appearing, no acute distress, alert and awake Nutritional Appearance: well nourished Orientation/consciousness: oriented to person, oriented to place and oriented to time HENMT Ears: TM's normal bilaterally General nose exam: Normal nasal mucous membranes and turbinates present Eyes Conjunctivae: conjunctivae normal Sclerae: sclerae normal Pupils: Equal, round and reactive pupils present Neck Neck: Yes no lymphadenopathy and Yes no JVD Thyroid: Thyroid normal Carotids: no bruits Resp Effort & Inspection: normal respiratory effort and not tachypneic Auscultation: no crackles, no rales, no rhonchi and no wheezes Cardio Rate: regular rate Rhythm: regular rhythm Heart sounds: no murmurs and normal S1 and S2 GI Palpation (GI): Soft to palpation, nontender, no hepatomegaly and no splenomegaly Auscultation: normal bowel sounds Skin General skin exam: no rashes or lesions noted and dry skin Neuro General: oriented to person, oriented to place and oriented to time Cranial nerves: Yes Equal, round and reactive pupils present Speech: No Abnormal speech present Gait exam (Neuro): Normal gait present Motor exam (neuro): no tremor noted Extrem Other: LEFT KNEE WITH ONLY LIMITED FLEXION, RIGHT KNEE WITH SOME MORE MOBILITY THOUGH STILL APPEARS SOMEWHAT EDEMATOUS IN THE ANTERIOR ASPECT. Right upper extremity: full ROM Left upper extremity: full ROM Right lower extremity: full ROM and edema Left lower extremity: full ROM and edema Psych Mental Status: mental status grossly normal Speech and movement: Normal speech and movement present Affect: normal affect Attitude: cooperative Thought process: Normal thought process present Assessment and Plan Assessment & Plan (1) HLD (hyperlipidemia): Code(s): E78.5 - Hyperlipidemia, unspecified Qualifiers: Hyperlipidemia type: mixed hyperlipidemia Qualified Code(s): E78.2 - Mixed hyperlipidemia Plan: Patient's most recent lipid panel improved total cholesterol and LDL. Has been on simvastatin without any side effect. Will continue his current dose of simvastatin advised to do fasting labs to check her lipids. Goal LDL is to be below 160 (2) HTN (hypertension): Code(s): I10 - Essential (primary) hypertension Qualifiers: Hypertension type: primary hypertension Qualified Code(s): I10 - Essential (primary) hypertension Plan: Patient's blood pressure acceptable today in office. Continues on lisinopril 5 mg. Goal blood pressure to remain below 140/90 (3) Failed total knee arthroplasty: Code(s): T84.018A - Broken internal joint prosthesis, other site, initial encounter; Z96.659 - Presence of unspecified artificial knee joint Qualifiers: Encounter type: sequela Qualified Code(s): T84.018S - Broken internal joint prosthesis, other site, sequela; Z96.659 - Presence of unspecified artificial knee joint Plan: Continues to pain and bilateral knees worsen her left knee to which there has been replacement. She has follow-up with orthopedics though no further surgery recommended. She continues to be in pain especially with flexion and long periods of standing or walking. She has applying for [employer]. She does have gabapentin 300 mg for breakthrough pain though only makes her feel a little funny though does not help her pain. On Suboxone at this time for chronic opiate dependency though does not feel it helps any of her arthritic pain. SHE ADMITS TO DRINKING OVER THE LAST 3-4 MONTHS QUITE HEAVILY TO HELP REDUCE HER PAIN. We did discuss that this is a maladaptive way to treat her pain. Will refer to pain management for pain reduction modalities. We did discuss perhaps using tramadol 2 to 3 times a day for her arthritic pain. 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 (5) Alcohol use disorder: Code(s): F10.90 - Alcohol use, unspecified, uncomplicated Plan: As above patient does admit to drinking on a daily basis due to her arthritic pain that is uncontrolled. (6) COPD (chronic obstructive pulmonary disease): Code(s): J44.9 - Chronic obstructive pulmonary disease, unspecified Qualifiers: COPD type: chronic bronchitis Chronic bronchitis type: mucopurulent Qualified Code(s): J41.1 - Mucopurulent chronic bronchitis Plan: Patient does report having some shortness of breath on minimal exertion. The was a previous smoker for 25 years. Did quit smoking in 2017. She is willing to do pulmonary function testing to evaluate for obstructive pulmonary disease. Will supply patient with an albuterol inhaler to use on an as needed basis. Orders: Orders Microalbumin, Random (w Creat) Today I10 - Essential (primary) hypertension PFT pulmonary function test Today J41.1 - Mucopurulent chronic bronchitis Comprehensive [facility]. Panel Fast Today I10 - Essential (primary) hypertension Complete Blood Count no Diff Today I10 - Essential (primary) hypertension Hemoglobin A1c Today R73.09 - Other abnormal glucose Referrals Pain Management Referral T84.018S - Broken internal joint prosthesis, other site, sequela, Z96.659 - Presence of unspecified artificial knee joint Medications: New albuterol sulfate 90 mcg/actuation (Ventolin HFA) 1 inh inhalation QID 30 days 8.5 grams 1RF J41.1 - Mucopurulent chronic bronchitis Patient Instructions: Goal: Blood pressure to remain below 140/90 Barriers: Adherence to physical activity and healthy eating habits Coding Level of Care Code Est Pt Level 4 (57131) Complex EM visit Add On G2211 Diagnoses Mixed hyperlipidemia E78.2 Hyperlipidemia type: mixed hyperlipidemia Primary hypertension I10 Hypertension type: primary hypertension Failure of total knee replacement, sequela T84.018S; Z96.659 Encounter type: sequela Uncomplicated opioid dependence F11.20 Substance use status: uncomplicated Alcohol use disorder F10.90 Mucopurulent chronic bronchitis J41.1 COPD type: chronic bronchitis Chronic bronchitis type: mucopurulent Additional Codes ROHITH-7 Assessment Billing - ROHITH-7 Assessment Tool: ROHITH-7 Assessment [id number] ([id number])
== END 2023-10-29 15:12 | disposition home or self-care (01) ==
PROVIDERS: PCP Physician Assistant; Visit Provider Physician Assistant
DX: E78.2 Mixed hyperlipidemia (principal); I10 Essential (primary) hypertension; F11.20 Opioid dependence, uncomplicated; J41.1 Mucopurulent chronic bronchitis; T84.01 Broken internal joint prosthesis; Z96.659 Presence of unspecified artificial knee joint; F10.90 Alcohol use, unspecified, uncomplicated
CPT/HCPCS: 99214; G2211

== ENCOUNTER 2023-11-07 11:28 | Day surgery (SDC) | payer MEDICARE, MEDICAID, SELFPAY ==
[2023-11-07 11:53] VITALS: BMI 30.2
--- NOTE | 2023-11-07 13:40 | MHC.SHP ---
Pre-Procedural Eval Section A - 24 Hr Update-Section A only Date of Service: 11/07/23 The patient is an INPATIENT: No Changes since office visit: No Cold of Flu in the past 2 weeks, No New Medical Problems, No Changes in Medication and No Patient answered all questions The patient has been examined within 24 hours of the surgical procedure. The History & Physical has been completed within 30 days and I have reviewed it.: Yes Section B - Complete if H&P > 30 days Chief Complaint: Carpal tunnel syndrome, left upper limb Allergies: Allergies Allergy/AdvReac Type Severity Reaction Status Date / Time No Known Allergies Allergy Verified 11/07/23 11:47 [No Known Allergies*] Plan I have reviewed the history and physical and performed a pertinent physical examination on my patient. No changes have occurred unless specified. Time Spent With Patient Time: Total time managing care of this patient today ____ minutes.
--- NOTE | 2023-11-07 13:40 | W.PM.OPN ---
Operative Note Operative Note Date of Service: 11/07/23 Narrative: Preop diagnosis: 1. Left Carpal tunnel syndrome Postop diagnosis: same Procedure: 1. Left Carpal tunnel release Surgeon: Mirna Garcias MD Anesthesia: local block using 1% lidocaine with epinephrine Findings: Thickened transverse carpal ligament. EBL: Less than 5 mL Specimens: None Complications: None Disposition: Brought to recovery room in stable condition Plan: Follow-up for 10-14 days for wound check and suture removal Indications: The patient is 62 years old, with left carpal tunnel syndrome that has been unresponsive to nonoperative management. The risks and benefits of operative treatment including but not limited to risk of damage to blood vessels, nerves, tendons, infection, persistent pain, persistent symptoms, or possible need for additional surgery were discussed with the patient and the patient wishes to proceed with surgery. Procedure: Once consent was obtained a local block was performed using a combination of 1% lidocaine with epinephrine. The patient was then brought back to the operating suite and placed on the operative table in supine position. The left upper extremity was prepped and draped in a standard surgical fashion. Once assured that we had a good block, a 2.0 cm longitudinal incision was made centered over the carpal tunnel. The incision was made through the skin to the subcutaneous tissues using a #15 blade. Dissection was made down to the level of the transverse carpal ligament with care being taken to protect the palmar cutaneous nerve. Once the transverse carpal ligament was clearly visualized, a longitudinal incision was made in the transverse carpal ligament 1st using a #15 blade, then using tenotomy scissors under direct visualization. Care was taken to look for and protect the motor branch of the median nerve when seen in this area. Once satisfied with our carpal tunnel release the wound was copiously irrigated with normal saline and hemostasis was obtained with a brief period of local pressure. The skin edges were reapproximated with some 5.0 nylon suture material and a sterile dressing was applied. The patient appears to have tolerated the procedure well and with no complications. All digits were well vascularized at the conclusion of the case.
[2023-11-07 14:13] VITALS: BP 153/82; PULSE 84; RESP 16; O2SAT 96
== END 2023-11-07 14:19 | disposition home or self-care (01) ==
PROVIDERS: PCP Physician Assistant; Visit Provider Orthopaedic Surgery
PROC: (CPT 64721; principal; 2023-11-07 12:40)
DX: G56.02 Carpal tunnel syndrome, left upper limb (principal); R20.0 Anesthesia of skin; M18.11 Unilateral primary osteoarthritis of first carpometacarpal joint, right hand; I10 Essential (primary) hypertension; E78.00 Pure hypercholesterolemia, unspecified; F11.20 Opioid dependence, uncomplicated; Z79.899 Other long term (current) drug therapy; Z98.890 Other specified postprocedural states; Z87.891 Personal history of nicotine dependence
CPT/HCPCS: 64721; J0171

== ENCOUNTER → 2023-11-07 11:28 | Outpatient (BNV) | payer MEDICARE, MEDICAID, SELFPAY | PROVIDERS: PCP Physician Assistant; Visit Provider Orthopaedic Surgery | DX: G56.02 Carpal tunnel syndrome, left upper limb (principal) | CPT/HCPCS: 64721 ==

== ENCOUNTER 2023-11-20 13:26 | Outpatient (AMB) | payer MEDICARE, MEDICAID, SELFPAY ==
--- NOTE | 2023-11-20 13:28 | MHC.OFFVIS ---
Vital Signs 11/20/23 13:32 Height 5 ft 2 in Weight 160 lb BMI 29.3 Handedness Right Intake Visit Reasons: PO LT CTR 11/07/23 AR Intake Note: Debby is a 62 year old right hand dominant female who presents today for his first post operative visit s/p Left Carpal Tunnel Release 11/07/23 AR.. Patient reports she is still having numbness and tingling in the fingers but notices an improvement saying it is not as bad as it once was. She has some mild soreness in the left hand today. Allergies No Known Allergies [No Known Allergies*] Allergy (Verified 11/20/23 13:34) HPI HPI PO LT CTR 11/07/23 AR: Details: Patient is a 62-year-old female presenting for 2 week follow-up status post left carpal tunnel release, DOS 11/07/2023. Patient reports that she is doing well, with no concerns or complaints at this time. Reports no edema, erythema, or drainage from the incision site. Sutures are removed and Steri-Strips are in place. Patient also reports that pain in her left hand has completely resolved, and that she has increasing sensation in the median nerve distribution of the left hand. [facility] Medical History De Quervain's tenosynovitis, right Postoperative stiffness of total knee replacement Former smoker GERD (gastroesophageal reflux disease) Opiate dependence Dysphagia Elevated cholesterol HTN (hypertension) Failed total knee arthroplasty Surgical History Hx of total knee replacement History of esophagogastroduodenoscopy (EGD) Family History Son Kidney malignancy Social History Housing: House Alcohol intake: current Alcohol intake frequency: a few times a month Patient Tobacco Use Status: Former Tobacco user e-Cigarette/Vaping Use: Never Used Second Hand Smoke Exposure: No Substance Use Type: Marijuana service: No Current occupational status: employed 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 Neuro: Median, ulnar, radial nerves motor and sensory intact and sensation is normal to the tips of all digits at this time. Vascular: Cap refill brisk Pain: Patient not experiencing any pain at this time ROM: Patient has full and intact range of motion of the fingers and wrist of the left hand Skin: Well-healing incision site from left carpal tunnel release General: No ecchymosis, erythema, or evidence of infection. Psych: Appears grossly normal Affect normal Attitude cooperative Assessment & Plan Assessment & Plan (1) Carpal tunnel syndrome of left wrist: Code(s): G56.02 - Carpal tunnel syndrome, left upper limb Category: Medical Plan 1. 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 Patient will follow-up p.r.n. for any acute concerns Coding Level of Care Code Global (46354) Diagnoses Carpal tunnel syndrome of left wrist G56.02
[2023-11-20 13:32] VITALS: BMI 29.3
== END 2023-11-20 13:44 | disposition home or self-care (01) ==
PROVIDERS: PCP Physician Assistant
DX: G56.02 Carpal tunnel syndrome, left upper limb (principal)
CPT/HCPCS: 99024

== ENCOUNTER → 2023-11-20 13:26 | Outpatient (BNVA) | payer MEDICARE, MEDICAID, SELFPAY | PROVIDERS: PCP Physician Assistant | DX: Z09 Encounter for follow-up examination after completed treatment for conditions other than malignant neoplasm (principal); Z86.69 Personal history of other diseases of the nervous system and sense organs | CPT/HCPCS: 99212 ==

== ENCOUNTER 2024-01-14 08:11 | Outpatient (REF) | payer MEDICARE, MEDICAID, SELFPAY ==
--- NOTE | ~2024-01-14 | XR_ITS ---
EXAMINATION: XR ANKLE, RIGHT CLINICAL INFORMATION: Left ankle and foot pain. COMPARISON: None available. TECHNIQUE: AP, lateral, and mortise views of the right ankle. FINDINGS: Minimally displaced fracture of the distal aspect of the lateral malleolus with cortical step-off measuring up to 0.1 cm in ML dimension. Prominent overlying soft tissue swelling. No additional fracture. No dislocation. The ankle mortise is maintained. Tiny tibiotalar marginal osteophytes. Patellar osteochondral lesion. Plantar and dorsal calcaneal spurs. XR/XR ankle RT min 3V IMPRESSION: 1. Minimally displaced lateral malleolar fracture with prominent overlying soft tissue swelling. 2. Mild tibiotalar osteoarthritis. Patellar osteochondral lesion. 3. Plantar and dorsal calcaneal spurs. Electronically signed by: Tank Vizcaino MD 02/03/2024 08:56 PM EDT
== END 2024-01-14 08:12 | disposition home or self-care (01) ==
LOC: HO.HOSX 08:11
PROVIDERS: PCP Physician Assistant
DX: M25.572 Pain in left ankle and joints of left foot (principal); S82.61XA Displaced fracture of lateral malleolus of right fibula, initial encounter for closed fracture; S93.401A Sprain of unspecified ligament of right ankle, initial encounter
CPT/HCPCS: 73610; 99212

== ENCOUNTER 2024-01-14 08:33 | Outpatient (AMB) | payer MEDICARE, MEDICAID, SELFPAY ==
--- NOTE | 2024-01-14 08:36 | MHC.OFFVIS ---
Intake Visit Reasons: OV-New prob Ankle sprain Intake Note: Debby is a 63 year old female who presents today for an evaluation of her right ankle injury. Patient reports about 3 weeks ago while she was walking in a parking lot, she tripped in a hole causing her to fall on her right side. She presented to [facility] in [place] that same day where xrays were taken and she was placed in a walking boot. She d/c use of boot due to an increase of pain and was unable to walk with boot on. Her pain is located around the lateral aspect of ankle. She complains of numbness and tingling in her foot. Allergies No Known Allergies [No Known Allergies*] Allergy (Verified 01/14/24 08:45) HPI HPI OV-New prob Ankle sprain: Details: Patient is a 63-year-old female who presents for evaluation of right ankle sprain, date of injury 3 weeks ago. The patient reports that, at that time, she was walking in a parking lot and her ankle inverted underneath her, causing a fall onto her right leg. Patient was previously evaluated at [facility] in [place], where she was diagnosed with a right ankle sprain with associated avulsion fracture of the right lateral malleolus, and was provided with a walking boot. Since that time, the patient reports that she has been experiencing significant pain in her right lower leg and ankle, worst at the lateral malleolus but also radiating around the ankle and up the lower leg. The patient reports that she has noticed improvement since date of injury. Patient reports that she discontinued use of the walking boot as she felt it increased to pain she was experiencing in her ankle. No repeat injury. The patient does report that she was experiencing significant ecchymosis on the ankle, as well as the anterior and posterior lower leg, but these areas are healing well. No other acute complaints or concerns at this time. [facility] Medical History De Quervain's tenosynovitis, right Postoperative stiffness of total knee replacement Former smoker GERD (gastroesophageal reflux disease) Opiate dependence Dysphagia Elevated cholesterol HTN (hypertension) Failed total knee arthroplasty Surgical History Hx of total knee replacement History of esophagogastroduodenoscopy (EGD) Family History Son Kidney malignancy Social History Housing: House Alcohol intake: current Alcohol intake frequency: a few times a month Patient Tobacco Use Status: Former Tobacco user e-Cigarette/Vaping Use: Never Used Second Hand Smoke Exposure: No Substance Use Type: Marijuana service: No Current occupational status: employed 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 Cognitive needs: No Hearing needs: No Vision needs: No Physical Exam Extrem Other: On inspection, there is noted to be edema of the anterior, posterior, and lateral right ankle There is also noted to be some old, yellowed ecchymosis of the lateral ankle, as well as the anterior and posterior lower leg No erythema noted No evidence of infection noted No lacerations, abrasions, open Patient reports significant tenderness to palpation about the lateral malleolus of the left ankle Patient also reports tenderness to palpation of the anterior and posterior ankle, as well as the area of ecchymosis over the anterior lower leg The patient is able to dorsiflex and plantar flex the right foot, however she reports some discomfort in the ankle with both of these actions Patient is able to flex and extend the digits of the right foot without difficulty Distal sensation intact Capillary refill brisk Office Procedures Fracture Care Details: Avulsion fracture of right lateral malleolus Fracture Billing Code: Fracture Billing Code Results Reviewed Results Reviewed: X-rays obtained in the office today and independently reviewed by me, Killian Harp PA-C, demonstrate minimally displaced avulsion fracture of right lateral malleolus. Assessment & Plan Assessment & Plan (1) Avulsion fracture of lateral malleolus of right fibula: Code(s): S82.61XA - Displaced fracture of lateral malleolus of right fibula, initial encounter for closed fracture Category: Medical (2) Right ankle sprain: Code(s): S93.401A - Sprain of unspecified ligament of right ankle, initial encounter Category: Medical Plan 1. Right ankle sprain with associated avulsion fracture of lateral malleolus Date of injury 3 weeks ago Patient appears to be recovering moderately well from her injury Patient is educated about the typical recovery course Patient is informed that she should be using some form of ankle stabilization at this time in order to prevent worsening of injury or re-injury Patient is informed that a walking boot would likely be the best form of stabilization, but if she is unable to tolerate, she can use a lace-up ankle brace which is provided in the office today Due to patient is still experiencing significant discomfort, she will follow-up in 2 weeks with repeat x-rays to assess how she is feeling and for referral to physical therapy at that time Patient is amenable to this plan Patient will follow-up in 2 weeks with repeat x-rays, sooner with any acute concerns Coding Level of Care Code Est Pt Level 3 (99545) Diagnoses Avulsion fracture of lateral malleolus of right fibula S82.61XA Right ankle sprain S93.401A CPT Codes Fracture Care - Fracture Billing Code: Fracture Billing Code ([id number])
== END 2024-01-14 09:07 | disposition home or self-care (01) ==
PROVIDERS: PCP Physician Assistant
DX: S82.61XA Displaced fracture of lateral malleolus of right fibula, initial encounter for closed fracture (principal); S93.401A Sprain of unspecified ligament of right ankle, initial encounter
CPT/HCPCS: 99213

== ENCOUNTER 2024-01-28 08:24 | Outpatient (AMB) | payer MEDICARE, MEDICAID, SELFPAY ==
--- NOTE | 2024-01-28 08:26 | MHC.OFFVIS ---
Vital Signs 01/28/24 08:28 Height 5 ft 2 in Weight 156 lb BMI 28.5 Intake Visit Reasons: 2 week follow up Ankle sprain Intake Note: Debby is a 63 year old female who presents today for a follow up visit for her fracture of right lateral malleolus s/p fall. Patient reports she is having continued pain on the lateral aspect of her right ankle with palpitation. She says she wears her lace up brace to work but as soon as she gets home she removes it because it is pressing against the bone causing her pain and discomfort. Patient sleeps with her right foot sticking out of the blankets becaue she reports even this causes her pain. She is taking ibuprofen and states it gives mild relief. Allergies No Known Allergies [No Known Allergies*] Allergy (Verified 01/28/24 08:28) HPI HPI 2 week follow up Ankle sprain: Details: Patient is a 63-year-old female who presents for follow-up from right ankle sprain and avulsion fracture of right lateral malleolus, date of injury proximally 5-6 weeks ago. The patient reports that she has been feeling better since previous evaluation, but states that she does still experience significant discomfort about the lateral malleolus of the right ankle. Patient reports that the swelling and bruising have both improved significantly since previous evaluation as well. However, the patient states that she can only tolerate wearing her lace-up ankle brace at work, as she finds it extremely uncomfortable and cumbersome. Patient reports that she feels that the brace is not helping her recovery. No other acute complaints or concerns at this time. [facility] Medical History De Quervain's tenosynovitis, right Postoperative stiffness of total knee replacement Former smoker GERD (gastroesophageal reflux disease) Opiate dependence Dysphagia Elevated cholesterol HTN (hypertension) Failed total knee arthroplasty Surgical History Hx of total knee replacement History of esophagogastroduodenoscopy (EGD) Family History Son Kidney malignancy Social History Housing: House Alcohol intake: current Alcohol intake frequency: a few times a month Patient Tobacco Use Status: Former Tobacco user e-Cigarette/Vaping Use: Never Used Second Hand Smoke Exposure: No Substance Use Type: Marijuana service: No Current occupational status: employed 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 Cognitive needs: No Hearing needs: No Vision needs: No Physical Exam Vital Signs: BMI result Body Mass Index 28.5 Extrem Other: On inspection, there is noted to be mild edema about the lateral malleolus of the right ankle, significantly improved from last visit No ecchymosis noted No erythema noted No evidence of infection noted No lacerations, abrasions, open Patient reports [id number] tenderness to palpation about the lateral malleolus of the left ankle Patient denies tenderness to palpation of the anterior and posterior ankle The patient is able to dorsiflex and plantar flex the right foot without difficulty Patient is able to flex and extend the digits of the right foot without difficulty Distal sensation intact Capillary refill brisk Assessment & Plan Assessment & Plan (1) Right ankle sprain: Code(s): S93.401A - Sprain of unspecified ligament of right ankle, initial encounter Category: Medical Plan 1. Right ankle sprain Date of injury approximately 5-6 weeks ago Patient appears to be recovering well from her injury Patient is educated about the typical recovery course At this time, patient is informed that if she is unable to tolerate the lace-up ankle brace, she is far enough removed from her injury where she can attempts to discontinue use of any bracing Patient is also referred to PT for range of motion, strengthening, stabilization of right ankle Patient is amenable to this plan Patient will follow-up as needed with any acute concerns Orders: Orders PT Evaluation and Treatment Today S93.401A - Sprain of unspecified ligament of right ankle, initial encounter Coding Level of Care Code Est Pt Level 3 (48274) Diagnoses Right ankle sprain S93.401A
[2024-01-28 08:28] VITALS: BMI 28.5
== END 2024-01-28 08:49 | disposition home or self-care (01) ==
PROVIDERS: PCP Physician Assistant
DX: S93.401A Sprain of unspecified ligament of right ankle, initial encounter (principal)
CPT/HCPCS: 99213

== ENCOUNTER → 2024-01-28 08:24 | Outpatient (BNVA) | payer MEDICARE, MEDICAID, SELFPAY | PROVIDERS: PCP Physician Assistant | DX: S93.491A Sprain of other ligament of right ankle, initial encounter (principal); W01.0XXA Fall on same level from slipping, tripping and stumbling without subsequent striking against object, initial encounter; Y93.9 Activity, unspecified; Y92.9 Unspecified place or not applicable; Y99.9 Unspecified external cause status | CPT/HCPCS: 99212 ==

== ENCOUNTER 2024-02-27 09:16 | Outpatient (AMB) | payer MEDICARE, MEDICAID, SELFPAY ==
--- NOTE | 2024-02-27 09:23 | A.OFFPC_ITS ---
Vital Signs 02/27/24 09:27 Height 5 ft 2 in Weight 166 lb 6 oz BMI 30.4 BP 148/90 H Blood Pressure Location Lt brachial Position Sitting Pulse 116 H Pulse Source Pulse Oximeter Pulse Oximetry (%) 95 Oxygen Delivery Method Room Air Intake Visit Reasons: Rsch from 12/11 Sand Caster Required: No Accompanied by: Self / Same As Patient Allergies No Known Allergies [No Known Allergies*] Allergy (Verified 02/27/24 09:41) Medication List - Last Reconciled 02/27/24 by Dilan Lopez PA-C albuterol sulfate 90 mcg/actuation (Ventolin HFA) 1 inh inhalation QID 30 days buprenorphine-naloxone 8-2 mg (Suboxone) 1 film buccal DAILY gabapentin 300 mg PO DAILY 30 days lisinopril 5 mg PO DAILY pantoprazole 40 mg PO DAILY polyethylene glycol 3350 (Miralax) 17 grams PO DAILY simvastatin 20 mg PO DAILY 90 days Tobacco use date assessed: 10/29/23 Fall risk assessment: No Falls in past year Last assessed Fall Risk: 02/27/24 Dental Screening Dental Screen Date: 10/29/23 HPI Rsch from 12/11 HPI Details Patient is a 63-year-old female here today for a follow-up visit.? Ana edwards has a past medical history significant for hyperlipidemia, LEft knee deformity/ osteoarthritis,? opiate dependence and on Suboxone to a local clinic. Concern-> patient currently followed by Orthopedics due to a right ankle injury resulting in avulsion fracture. Now in physical therapy which has been helpful. .. Hypertension: Continues on 5 mg lisinopril with good control of her blood pressure. Blood pressure today in office slightly elevated, she admits to having white coat hypertension. She reports that home blood pressures are 120s 130 systolic. .. Knee osteoarthritis status post replacement: continues to left knee pain swelling and decreased range of motion.? Has seen her orthopedic and was advised to to start physical therapy.? Recommendations also made for possible evaluation by pain management. X-ray knee showing--> Left knee replacement. Question increasing lucency of the superior patella. Small joint effusion.? ?She has had this is an existing condition over the last several years since knee replacement and revisions.? Of note-- > Prev PCP was Dr Pederson.? She has a past history left knee osteoarthritis requiring total knee replacement though was complicated and needed reconstructive surgery.? She was dependent on opiates and now has transition to Suboxone to which she gets from a local [facility]. She reports her knee pain has been bit better. Has been using gabapentin 300 daily with decent affect though is interested in increasing her gabapentin dose for better pain relief. PLAN: Will increase gabapentin to 300 b.i.d. for better pain relief. /.. Hyperlipidemia:? Patient was started on low potency? statin therapy and her fasting lipid panel much improved., .. Former smoker; she does report having some shortness of breath with minimal exertion as of late. Denies any chest pain. She does report quitting smoking 2017 though was a smoker for 2025 years. Patient did start a rescue inhaler which has helped her be more physically active [facility] Medical History De Quervain's tenosynovitis, right Postoperative stiffness of total knee replacement Former smoker GERD (gastroesophageal reflux disease) Opiate dependence Dysphagia Elevated cholesterol HTN (hypertension) Failed total knee arthroplasty Surgical History Hx of total knee replacement History of esophagogastroduodenoscopy (EGD) Family History Son Kidney malignancy Social History Housing: House Alcohol intake: current Alcohol intake frequency: a few times a month Patient Tobacco Use Status: Former Tobacco user e-Cigarette/Vaping Use: Never Used Second Hand Smoke Exposure: No Substance Use Type: Marijuana service: No Current occupational status: employed 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 Bernardo Moses, Gia Forrester, Jose M Lorenzo and colleagues, with an educational seble from [employer]. Review of Systems Const Denies headache(s) Eyes Denies loss of vision ENT Denies vertigo, Denies dizziness, Denies headache(s) and Denies sore throat Card Denies chest pain, Denies leg edema and Denies lightheadedness Resp Denies cough, Denies hemoptysis and Denies wheezing GI Denies abdominal pain, Denies melena, Denies constipation, Denies diarrhea and Denies vomiting Denies urinary frequency, Denies dysuria and Denies urinary urgency Musc Denies arthralgias, Denies joint swelling, Denies numbness and Denies tingling Neuro Denies Abnormal speech present, Denies behavioral changes, Denies vertigo, Denies dizziness, Denies headache(s), Denies loss of vision, Denies memory loss, Denies numbness and Denies tingling Psych Denies anxiety, Denies behavioral changes, Denies depression, Denies memory loss and Denies panic attacks Néstor/Lymph Denies easy bleeding and Denies easy bruising Aller/Immun Denies wheezing Physical exam (Primary Care) Vital Signs: Last Vital Signs Pulse 116 H 02/27/24 09:27 BP 148/90 H 02/27/24 09:27 Pulse Ox 95 02/27/24 09:27 Oxygen Delivery Method Room Air 02/27/24 09:27 BMI result Body Mass Index 30.4 Tobacco/Smoking Status: Tobacco use Status Tobacco use date assessed 10/29/23 02/27/24 09:25 Patient Tobacco Use Status Former Tobacco user 02/27/24 09:25 e-Cigarette/Vaping Use Never Used 02/27/24 09:25 Thrive Assessment: Date of Thrive Assessment Date Thrive assessed 10/29/23 02/27/24 09:25 Const General: healthy appearing, no acute distress, alert and awake Nutritional Appearance: well nourished Orientation/consciousness: oriented to person, oriented to place and oriented to time HENMA Ears: TM's normal bilaterally General nose exam: Normal nasal mucous membranes and turbinates present Eyes Conjunctivae: conjunctivae normal Sclerae: sclerae normal Pupils: Equal, round and reactive pupils present Neck Neck: Yes no lymphadenopathy and Yes no JVD Thyroid: Thyroid normal Carotids: no bruits Resp Effort & Inspection: normal respiratory effort and not tachypneic Auscultation: no crackles, no rales, no rhonchi and no wheezes Cardio Rate: regular rate Rhythm: regular rhythm Heart sounds: no murmurs and normal S1 and S2 GI Palpation (GI): Soft to palpation, nontender, no hepatomegaly and no splenomegaly Auscultation: normal bowel sounds Skin General skin exam: no rashes or lesions noted and dry skin Neuro General: oriented to person, oriented to place and oriented to time Cranial nerves: Yes Equal, round and reactive pupils present Speech: No Abnormal speech present Gait exam (Neuro): Normal gait present Motor exam (neuro): no tremor noted Extrem Right upper extremity: full ROM Left upper extremity: full ROM Right lower extremity: full ROM; no edema Left lower extremity: full ROM; no edema Psych Mental Status: mental status grossly normal Speech and movement: Normal speech and movement present Affect: normal affect Attitude: cooperative Thought process: Normal thought process present Coding Level of Care Code Est Pt Level 4 (66752) Diagnoses Mixed hyperlipidemia E78.2 Hyperlipidemia type: mixed hyperlipidemia Primary hypertension I10 Hypertension type: primary hypertension Closed avulsion fracture of lateral malleolus of right fibula, sequela S82.61XS Encounter type: sequela Fracture type: closed Mucopurulent chronic bronchitis J41.1 COPD type: chronic bronchitis Chronic bronchitis type: mucopurulent Assessment & Plan Assessment & Plan (1) HLD (hyperlipidemia): Code(s): E78.5 - Hyperlipidemia, unspecified Category: Medical Qualifiers: Hyperlipidemia type: mixed hyperlipidemia Qualified Code(s): E78.2 - Mixed hyperlipidemia Plan: Patient's most recent lipid panel improved. She continues on simvastatin 20 mg with good effect. Will recheck fasting lipid panel before upcoming annual physical. Goal LDL to be below 130 (2) HTN (hypertension): Code(s): I10 - Essential (primary) hypertension Category: Medical Qualifiers: Hypertension type: primary hypertension Qualified Code(s): I10 - Essential (primary) hypertension Plan: Patient's blood pressure slightly elevated today in office. She believes she has a white coat hypertension. Her current dose lisinopril is working well for her as she does get normal blood pressure readings at home (3) Avulsion fracture of lateral malleolus of right fibula: Code(s): S82.61XA - Displaced fracture of lateral malleolus of right fibula, initial encounter for closed fracture Category: Medical Qualifiers: Encounter type: sequela Fracture type: closed Qualified Code(s): S82.61XS - Displaced fracture of lateral malleolus of right fibula, sequela Plan: As per HPI patient is followed by Orthopedics and Physical therapy at this time for an avulsion fracture of her right fibula. (4) COPD (chronic obstructive pulmonary disease): Code(s): J44.9 - Chronic obstructive pulmonary disease, unspecified Category: Medical Qualifiers: COPD type: chronic bronchitis Chronic bronchitis type: mucopurulent Qualified Code(s): J41.1 - Mucopurulent chronic bronchitis Plan: Patient is a former smoker, her COPD is only mild. she does use an albuterol inhaler as needed before physical activity which works well. Orders: Orders Lipid Panel 02/27/24 E78.2 - Mixed hyperlipidemia Comprehensive [place]. Panel Fast 02/27/24 E78.2 - Mixed hyperlipidemia Complete Blood Count no Diff 02/27/24 E78.2 - Mixed hyperlipidemia Medications: Changed From gabapentin 300 mg PO DAILY 30 days 30 caps 3RF pain, moderate M25.669 - Stiffness of unspecified knee, not elsewhere classified, T84.89XA - Other specified complication of internal orthopedic prosthetic devices, implants and grafts, initial encounter, Z96.659 - Presence of unspecified artificial knee joint To gabapentin 300 mg PO BID 60 caps 3RF pain, moderate 30 days M25.669 - Stiffness of unspecified knee, not elsewhere classified, T84.89XA - Other specified complication of internal orthopedic prosthetic devices, implants and grafts, initial encounter, Z96.659 - Presence of unspecified artificial knee joint
[2024-02-27 09:27] VITALS: BP 148/90; PULSE 116; O2SAT 95; BMI 30.4
== END 2024-02-27 09:51 | disposition home or self-care (01) ==
PROVIDERS: PCP Physician Assistant; Visit Provider Physician Assistant
DX: E78.2 Mixed hyperlipidemia (principal); I10 Essential (primary) hypertension; S82.61XS Displaced fracture of lateral malleolus of right fibula, sequela; J41.1 Mucopurulent chronic bronchitis

== ENCOUNTER → 2024-02-27 09:16 | Outpatient (BNVA) | payer MEDICARE, MEDICAID, SELFPAY | PROVIDERS: PCP Physician Assistant; Visit Provider Physician Assistant | DX: E78.2 Mixed hyperlipidemia (principal); I10 Essential (primary) hypertension; J41.1 Mucopurulent chronic bronchitis; S82.61XS Displaced fracture of lateral malleolus of right fibula, sequela | CPT/HCPCS: 99212 ==

== ENCOUNTER 2024-03-09 14:00 | Outpatient (RCR) | payer MEDICARE, MEDICAID, SELFPAY | END 2024-04-24 09:53 | disposition home or self-care (01) | LOC: HO.PT 14:00 | PROVIDERS: PCP Physician Assistant | DX: S93.401D Sprain of unspecified ligament of right ankle, subsequent encounter (principal) | CPT/HCPCS: 97110; 97161 ==

== ENCOUNTER 2024-03-30 06:23 | Outpatient (REF) | payer MEDICARE, MEDICAID, SELFPAY ==
[2024-03-30 07:01] LABS: Hematocrit 39.8 % (37.0-47.0); Hemoglobin 12.6 g/dl (12.0-16.0); Mean Corpuscular HGB Conc 31.7 g/dl (31.0-35.0); Mean Corpuscular Volume 91.5 fL (80.0-98.0); Mean Platelet Volume 10.1 fL (9.4-12.3); Platelet Count 272 X10*3/uL (160-400); Red Blood Count 4.35 X10*6/uL (4.20-5.50); Red Cell Distribution Width 13.1 % (11.0-16.0); White Blood Count 9.6 X10*3/uL (4.8-10.8)
[2024-03-30 07:15] LABS: Estimated Average Glucose 117 mg/dL; Hemoglobin A1C 134.6953 umol/L; Hemoglobin A1c % 5.7 % (<6.0); Total Hemoglobin (HGBA1C) 3503.6219 umol/L
[2024-03-30 07:28] LABS: Alanine Aminotransferase 17 U/L (0-31); Albumin Level 4.2 g/dL (3.5-5.0); Alkaline Phosphatase 78 U/L (39-117); Anion Gap 16 (12-20); Aspartate Amino Transferase 29 U/L (5-31); Bilirubin Total 0.4 mg/dL (0.0-1.0); Blood Urea Nitrogen 10 mg/dL (9-16); Calcium 9.9 mg/dL (8.4-10.2); Carbon Dioxide 23 mmol/L (22-29); Chloride 105 mmol/L (96-108); Cholesterol 213 mg/dL (<200); Estimated Glomerular Filt Rate > 60; Glucose Fasting 142 mg/dL (60-99); HDL Cholesterol 57 mg/dL (>40); LDL Cholesterol Calculated 103 mg/dL (<100); Sodium 140 mmol/L (135-145); Total Protein 7.3 g/dL (6.5-8.0); Triglycerides 268 mg/dL (<150)
== END 2024-03-30 06:24 | disposition home or self-care (01) ==
LOC: HO.LAB 06:23
PROVIDERS: PCP Physician Assistant; Visit Provider Physician Assistant
DX: I10 Essential (primary) hypertension (principal); E78.2 Mixed hyperlipidemia; R73.09 Other abnormal glucose
CPT/HCPCS: 36415; 80053; 80061; 83036; 85027

== ENCOUNTER 2024-04-02 09:00 | Outpatient (AMB) | payer MEDICARE, MEDICAID, SELFPAY ==
--- NOTE | 2024-04-02 09:07 | A.OFFPC_ITS ---
Vital Signs 3 04/02/24 09:13 Height 5 ft 2 in Weight 167 lb BMI 30.5 BP 140/84 H Blood Pressure Location Lt brachial Position Sitting Pulse 110 H Pulse Source Pulse Oximeter Pulse Oximetry (%) 96 Oxygen Delivery Method Room Air Intake Visit Reasons: Annual Exam Intake Note: Patient is here today for a physical. [employer] Consultant Required: No Accompanied by: Self / Same As Patient Allergies No Known Allergies [No Known Allergies*] Allergy (Verified 04/02/24 09:17) Medication List - Last Reconciled 04/02/24 by Dilan Lopez PA-C albuterol sulfate 90 mcg/actuation (Ventolin HFA) 1 inh inhalation QID 30 days buprenorphine-naloxone 8-2 mg (Suboxone) 1 film buccal DAILY gabapentin 300 mg PO BID 30 days lisinopril 5 mg PO DAILY pantoprazole 40 mg PO DAILY polyethylene glycol 3350 (Miralax) 17 grams PO DAILY simvastatin 20 mg PO DAILY 90 days Tobacco use date assessed: 10/29/23 Fall risk assessment: No Falls in past year Last assessed Fall Risk: 04/02/24 Dental Screening Dental Screen Date: 10/29/23 HPI Annual Exam 2 HPI0 Details Patient is a 63-year-old female here today for a annual physical..? Patient has a past medical history significant for hyperlipidemia, LEft knee deformity/ osteoarthritis,? opiate dependence and on Suboxone to a local clinic. Avulsion fracture right ankle: Has done physical therapy does feel she is making any improvement. Continues to have pretty significant pain over her lateral malleolus over right ankle She would like to see Orthopedics for further evaluation. .. Hypertension: Continues on 5 mg lisinopril with good control of her blood pressure. Blood pressure today in office slightly elevated, she admits to having white coat hypertension. She reports that home blood pressures are 120s 130 systolic. .. Knee osteoarthritis status post replacement: continues to left knee pain swelling and decreased range of motion.? Has seen her orthopedic and was advised to to start physical therapy.? Recommendations also made for possible evaluation by pain management. X-ray knee showing--> Left knee replacement. Question increasing lucency of the superior patella. Small joint effusion.? ?She has had this is an existing condition over the last several years since knee replacement and revisions.? Of note-- > Prev PCP was Dr Pederson.? She has a past history left knee osteoarthritis requiring total knee replacement though was complicated and needed reconstructive surgery.? She was dependent on opiates and now has transition to Suboxone to which she gets from a local [email or web address] clinic. She reports her knee pain has been bit better. Has been using gabapentin 300 daily with decent affect though is interested in increasing her gabapentin dose for better pain relief. We have increased her gabapentin to 300 twice a day. /.. Hyperlipidemia:? Patient was started on low potency? statin therapy and her fasting lipid panel much improved., .. Former smoker; she does report having some shortness of breath with minimal exertion as of late. Denies any chest pain. She does report quitting smoking 2016 though was a smoker for 2024 years. Patient did start a rescue inhaler which has helped her be more physically active Vaccines: Up-to-date with COVID vaccine, pneumonia vaccine. Declines flu vaccine, considering shingles vaccine Colon cancer screening: Has done Cologuard in 2021 which was negative repeat 2024 Mammo: Up-to-date with mammogram [facility] Medical History De Quervain's tenosynovitis, right Postoperative stiffness of total knee replacement Former smoker GERD (gastroesophageal reflux disease) Opiate dependence Dysphagia Elevated cholesterol HTN (hypertension) Failed total knee arthroplasty Surgical History Hx of total knee replacement History of esophagogastroduodenoscopy (EGD) Family History Son Kidney malignancy Social History (Updated 04/02/24 @ 09:21 by Dilan Lopez PA-C) Housing: House Alcohol intake: current Alcohol intake frequency: a few times a month Patient Tobacco Use Status: Former Tobacco user e-Cigarette/Vaping Use: Never Used Second Hand Smoke Exposure: No Substance Use Type: Marijuana service: No Current occupational status: employed 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 1. Little interest or pleasure in doing things: not at all 2. Feeling down, depressed, or hopeless: not at all 3. Trouble falling or staying asleep, or sleeping too much: not at all 4. Feeling tired or having little energy: not at all 5. Poor appetite or overeating: not at all 6. Feeling bad about yourself - or that you are a failure or have let yourself or your family down: not at all 7. Trouble concentrating on things, such as reading the newspaper or watching television: not at all 8. Moving or speaking so slowly that other people could have noticed. Or the opposite - being so fidgety or restless that you have been moving around a lot more than usual: not at all 9. Thoughts that you would be better off or of hurting yourself in some way: not at all Total score: 0 Depression Screening Interpretation: Negative Depression Screening Done: Yes 92343 - PHQ-9 Billing: Yes Source: Developed by Drs. Bernardo Moses, Gia Forrester, Jose M Lorenzo and colleagues, with an educational seble from [employer]. Thrive Questionnaire Date Thrive assessed: 04/02/24 I am a: Patient What is your living situation today?: I have a steady place to live Within the past 12 months, did the food you bought not last and you didn't have the money to get more?: Sometimes True Within the past 12 months, did you worry whether your food would run out before you got money to buy more?: Sometimes True Do you have trouble paying for medicines?: No Do you have trouble getting transportation to medical appointments?: No Do you have trouble paying your heating and electricity bill?: No Do you have trouble taking care of your child, family member or friend?: No Do you have trouble with day-to-day activities such as bathing, preparing meals, shopping, managing finances, etc.?: No Are you interested in more education?: No Please select the resources that you would like help with: None Currently or been in a relationship where the following occur: No concerns reported THRIVE Score: 2 AUDIT C Alcohol Use Questionnaire (AUDIT-C) 1. How often do you have a drink containing alcohol?: 4 or more times a week 2. How many drinks containing alcohol do you have on a typical day when you are drinking?: 3 or 4 3. How often do you have six or more drinks on one occasion?: Less than monthly Total Score: 6 ROHITH-7 AMB Questionnaire ROHITH-7 Date ROHITH - 7 assessed: 04/02/24 Feeling nervous, anxious, or on edge: 0 = Not at all Not being able to stop or control worryin = Not at all Worrying too much about different things: 0 = Not at all Trouble relaxin = Not at all Being so restless that it is hard to sit still: 0 = Not at all Becoming easily annoyed or irritable: 0 = Not at all Feeling afraid as if something awful might happen: 0 = Not at all Total ROHITH-7 score (0-4 normal; 5-9 mild; 10-14 moderate; 15-21 severe): 0 Source: Developed by Drs. Bernardo Moses, Gia Forrester, Jose M Lorenzo and colleagues, with an educational seble from [employer]. ROHITH-7 Assessment Billing ROHITH-7 Assessment Tool: ROHITH-7 Assessment 82462 Review of Systems Const Denies body aches, Denies chills, Denies excessive sweating, Denies fatigue, Denies fever(s) and Denies headache(s) Eyes Denies blurry vision ENT Denies dysphagia, Denies vertigo, Denies dizziness, Denies headache(s), Denies hearing loss and Denies tinnitus Card Denies chest pain, Denies chest pain with activity, Denies syncope, Denies irregular heart rhythm and Denies dyspnea Resp Denies chest congestion, Denies cough, Denies hemoptysis, Denies dyspnea and Denies wheezing GI Denies abdominal pain, Denies melena, Denies hematochezia, Denies coffee ground emesis, Denies dysphagia, Denies diarrhea, Denies nausea and Denies vomiting Denies urinary frequency, Denies dysuria, Denies urinary hesitancy and Denies urinary urgency Musc Denies arthralgias, Denies limited range of motion, Denies muscle cramps and Denies muscle weakness Skin/Breast Denies rash and Denies skin ulcer Neuro Denies Abnormal speech present, Denies confusion, Denies vertigo, Denies dizziness, Denies syncope, Denies headache(s), Denies memory loss and Denies seizure-like activity Psych Denies anxiety, Denies confusion, Denies depression, Denies memory loss, Denies panic attacks and Denies paranoia Endo Denies excessive sweating, Denies fatigue, Denies flushing, Denies polydipsia and Denies polyuria Aller/Immun Denies wheezing Physical exam (Primary Care) Vital Signs: Last Vital Signs Pulse 110 H 04/02/24 09:13 BP 140/84 H 04/02/24 09:13 Pulse Ox 96 04/02/24 09:13 Oxygen Delivery Method Room Air 04/02/24 09:13 BMI result Body Mass Index 30.5 Tobacco/Smoking Status: Tobacco use Status Tobacco use date assessed 10/29/23 04/02/24 09:07 Patient Tobacco Use Status Former Tobacco user 04/02/24 09:21 e-Cigarette/Vaping Use Never Used 04/02/24 09:21 PHQ-9: PHQ-9 Score PHQ-9: Total score 0 04/02/24 12:39 Depression Screening Interpretation: Negative Thrive Assessment: Date of Thrive Assessment Date Thrive assessed 04/02/24 04/02/24 09:15 Currently or been in a relationship where the following occur: No concerns reported Const General: cooperative, comfortable, no acute distress, alert and awake; No confusion Orientation/consciousness: oriented to person, oriented to place, patient oriented x3 and No confusion HENMT Head: Yes normocephalic Ears: external ears normal and TM's normal bilaterally Face and sinus: No sinus tenderness Mouth: Normal oral and palatal mucosa present and tongue normal Teeth and gingiva: dentition normal and gingiva normal Throat: Yes posterior oropharynx normal, Yes tonsils normal and Yes uvula midline Eyes Conjunctivae: conjunctivae normal Sclerae: sclerae normal Pupils: Equal, round and reactive pupils present EOM: EOMs intact bilaterally Direct Ophthalmoscopy: No no photophobia Neck Neck: Yes no lymphadenopathy, No tender and Yes no JVD Thyroid: Thyroid normal Carotids: no bruits Chest Chest palpation & inspection: no tenderness Resp Effort & Inspection: normal respiratory effort, no audible wheezes, not labored and no stridor Auscultation: no crackles, no rales, no rhonchi and no wheezes Cardio Jugular venous distension: no JVD Rate: regular rate, not bradycardic and not tachycardic Rhythm: regular rhythm Bruits: no carotid bruits Peripheral pulses: Peripheral pulses 2+ throughout GI Inspection: Yes normal to inspection, No abdominal wall ecchymosis and No visible herniation Palpation (GI): Soft to palpation, nontender, no guarding, not rigid and No hepatosplenomegaly present Auscultation: normoactive bowel sounds General: Yes no CVA tenderness Back/Spine/Pelvis Back: no CVA tenderness and No back tenderness Cervical Spine: cervical ROM normal Thoracic/Lumbar Spine: thoracic and lumbar spine normal to inspection, straight leg raise negative bilaterally, No thoraco-lumbar ROM limited and No lumbar spinal tenderness Skin Lesions: no lesions Rashes: no rashes Wounds: no wounds Neuro General: oriented to person, oriented to place, patient oriented x3, CN's II-XI intact bilaterally and No confusion Cranial nerves: Yes Equal, round and reactive pupils present and Yes Normal accommodation reflex present Cognition (Neuro): normal cognition Speech: No Abnormal speech present Gait exam (Neuro): Normal gait present Motor exam (neuro): 5/5 motor strength present throughout Extrem Right upper extremity: full ROM; no cyanosis Left upper extremity: full ROM; no cyanosis Right lower extremity: no edema Left lower extremity: no edema Ankle/foot/toe images: 2 1. TENDERNESS TO PALPATION IN THE RIGHT LATERAL MALLEOLAR REGION. SLIGHT EDEMA STILL APPARENT. Psych Appearance: grossly normal Mental Status: mental status grossly normal Affect: normal affect Attitude: cooperative Thought process: Normal thought process present Office Procedures Flu Questionnaire Does the patient have a severe egg allergy?: No Does the patient have severe life threatening allergies?: No Does the patient have a fever or illness today?: No Has the patient ever had Guillain-Coolin Syndrome?: No Has the patient ever had any past reaction to a flu shot?: No Immunizations Fluarix Triv [id number] (PF) 45 mcg (15 mcg x 3)/0.5 mL IM syringe Performing Provider: Dilan Lopez PA-C [facility] Documented (not given) by: TITA Jurado on 04/02/24 09:21 Reason Not Given: Patient Refused Coding Level of Care Code Est Pt Prev Care 40-64y(73808) Diagnoses Annual physical exam Z00.00 Impaired glucose metabolism R73.09 Primary hypertension I10 Hypertension type: primary hypertension Closed avulsion fracture of lateral malleolus of right fibula, sequela S82.61XS Encounter type: sequela Fracture type: closed Additional Codes ROHITH-7 Assessment Billing - ROHITH-7 Assessment Tool: ROHITH-7 Assessment 49730 ([id number]) PHQ-9 - 91624 - PHQ-9 Billing: Yes ([id number]) Assessment & Plan Assessment & Plan (1) Annual physical exam: Code(s): Z00.00 - Encounter for general adult medical examination without abnormal findings Category: Medical Plan: As per HPI (2) Impaired glucose metabolism: Code(s): R73.09 - Other abnormal glucose Category: Medical Plan: Patient's most recent fasting blood sugar slightly elevated. She will work on lifestyle and dietary modifications to reduce her sugars. (3) HTN (hypertension): Code(s): I10 - Essential (primary) hypertension Category: Medical Qualifiers: Hypertension type: primary hypertension Qualified Code(s): I10 - Essential (primary) hypertension Plan: Patient's blood pressure slightly elevated today in office. She reports having white coat hypertension though usually her blood pressure are stable. Will continue current dose of lisinopril 5 mg. Goal blood pressures to be below 140/90 (4) Avulsion fracture of lateral malleolus of right fibula: Code(s): S82.61XA - Displaced fracture of lateral malleolus of right fibula, initial encounter for closed fracture Category: Medical Qualifiers: Encounter type: sequela Fracture type: closed Qualified Code(s): S 82.61XS - Displaced fracture of lateral malleolus of right fibula, sequela Plan: As per HPI patient continues to right lateral ankle pain due to an avulsion fracture. Unfortunately has not made much progress in physical therapy. She would like to see Orthopedics for further evaluation and treatment Orders: Orders 2 Influenza [id number] Immunization Today Z23 - Encounter for immunization Microalbumin, Random (w Creat) Today I10 - Essential (primary) hypertension Comprehensive [place]. Panel Fast Today I10 - Essential (primary) hypertension Complete Blood Count no Diff Today I10 - Essential (primary) hypertension Lipid Panel Today E78.2 - Mixed hyperlipidemia Referrals 2 Orthopedics Referral S82.61XS - Displaced fracture of lateral malleolus of right fibula, sequela Medications: Refilled 2 gabapentin 300 mg PO BID 30 days 60 caps 3RF pain, moderate M25.669 - Stiffness of unspecified knee, not elsewhere classified, T84.89XA - Other specified complication of internal orthopedic prosthetic devices, implants and grafts, initial encounter, Z96.659 - Presence of unspecified artificial knee joint
--- NOTE | 2024-04-02 09:07 | A.OFFPC_ITS ---
Vital Signs 04/02/24 09:13 Height 5 ft 2 in Weight 167 lb BMI 30.5 BP 140/84 H Blood Pressure Location Lt brachial Position Sitting Pulse 110 H Pulse Source Pulse Oximeter Pulse Oximetry (%) 96 Oxygen Delivery Method Room Air Intake Visit Reasons: Annual Exam Allergies No Known Allergies [No Known Allergies*] Allergy (Verified 04/02/24 09:17) Medication List - Last Reconciled 04/02/24 by Dilan Lopez PA-C albuterol sulfate 90 mcg/actuation (Ventolin HFA) 1 inh inhalation QID 30 days buprenorphine-naloxone 8-2 mg (Suboxone) 1 film buccal DAILY gabapentin 300 mg PO BID 30 days lisinopril 5 mg PO DAILY pantoprazole 40 mg PO DAILY polyethylene glycol 3350 (Miralax) 17 grams PO DAILY simvastatin 20 mg PO DAILY 90 days Tobacco use date assessed: 10/29/23 Dental Screening Dental Screen Date: 10/29/23 HPI Annual Exam HPI Details Patient is a 63-year-old female here today for a routine annual physical.? Patient has a past medical history significant for hyperlipidemia, LEft knee deformity/ osteoarthritis,? opiate dependence and on Suboxone to a local clinic. Concern-> patient currently followed by Orthopedics due to a right ankle injury resulting in avulsion fracture. Now in physical therapy which has been helpful. .. Hypertension: Continues on 5 mg lisinopril with good control of her blood pressure. Blood pressure today in office slightly elevated, she admits to having white coat hypertension. She reports that home blood pressures are 120s 130 systolic. .. Knee osteoarthritis status post replacement: continues to left knee pain swelling and decreased range of motion.? Has seen her orthopedic and was advised to to start physical therapy.? Recommendations also made for possible evaluation by pain management. X-ray knee showing--> Left knee replacement. Question increasing lucency of the superior patella. Small joint effusion.? ?She has had this is an existing condition over the last several years since knee replacement and revisions.? Of note-- > Prev PCP was Dr Pederson.? She has a past history left knee osteoarthritis requiring total knee replacement though was complicated and needed reconstructive surgery.? She was dependent on opiates and now has transition to Suboxone to which she gets from a local [facility]. She reports her knee pain has been bit better. Has been using gabapentin 300 daily with decent affect though is interested in increasing her gabapentin dose for better pain relief. PLAN: Will increase gabapentin to 300 b.i.d. for better pain relief. /.. Hyperlipidemia:? Patient was started on low potency? statin therapy and her total cholesterol and LDL have improved. Unfortunately triglycerides still remain borderline high.., .. Former smoker; she does report having some shortness of breath with minimal exertion as of late. Denies any chest pain. She does report quitting smoking 2016 though was a smoker for 2024 years. Patient did start a rescue inhaler which has helped her be more physically active Vaccines: Up-to-date with COVID vaccine, pneumonia vaccine. Declines Flu vaccine ,and shingles vaccine though declines at this time Colon cancer screening: Has done Cologuard in 2021 which was negative Mammo: Up-to-date with mammogram Laboratory Tests 03/15/22 10/28/23 03/30/24 09:49 06:57 06:50 RBC 4.35 Fasting Glucose 119 H 142 H Hemoglobin A1c % 5.7 Triglycerides 268 H Cholesterol 225 H 213 H [facility] Medical History De Quervain's tenosynovitis, right Postoperative stiffness of total knee replacement Former smoker GERD (gastroesophageal reflux disease) Opiate dependence Dysphagia Elevated cholesterol HTN (hypertension) Failed total knee arthroplasty Surgical History Hx of total knee replacement History of esophagogastroduodenoscopy (EGD) Family History Son Kidney malignancy Social History (Updated 04/02/24 @ 09:21 by Dilan Lopez PA-C) Housing: House Alcohol intake: current Alcohol intake frequency: a few times a month Patient Tobacco Use Status: Former Tobacco user e-Cigarette/Vaping Use: Never Used Second Hand Smoke Exposure: No Substance Use Type: Marijuana service: No Current occupational status: employed 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 1. Little interest or pleasure in doing things: not at all 2. Feeling down, depressed, or hopeless: not at all 3. Trouble falling or staying asleep, or sleeping too much: not at all 4. Feeling tired or having little energy: not at all 5. Poor appetite or overeating: not at all 6. Feeling bad about yourself - or that you are a failure or have let yourself or your family down: not at all 7. Trouble concentrating on things, such as reading the newspaper or watching television: not at all 8. Moving or speaking so slowly that other people could have noticed. Or the opposite - being so fidgety or restless that you have been moving around a lot more than usual: not at all 9. Thoughts that you would be better off or of hurting yourself in some way: not at all Total score: 0 Source: Developed by Drs. Bernardo Moses, Gia Forrester, Jose M Lorenzo and colleagues, with an educational seble from [employer] Thrive Questionnaire Date Thrive assessed: 10/29/23 I am a: Patient What is your living situation today?: I have a steady place to live Within the past 12 months, did the food you bought not last and you didn't have the money to get more?: Sometimes True Within the past 12 months, did you worry whether your food would run out before you got money to buy more?: Sometimes True Do you have trouble paying for medicines?: No Do you have trouble getting transportation to medical appointments?: No Do you have trouble paying your heating and electricity bill?: No Do you have trouble taking care of your child, family member or friend?: No Do you have trouble with day-to-day activities such as bathing, preparing meals, shopping, managing finances, etc.?: No Are you interested in more education?: No Please select the resources that you would like help with: None Currently or been in a relationship where the following occur: No concerns reported THRIVE Score: 2 AUDIT C Alcohol Use Questionnaire (AUDIT-C) 1. How often do you have a drink containing alcohol?: 4 or more times a week 2. How many drinks containing alcohol do you have on a typical day when you are drinking?: 3 or 4 3. How often do you have six or more drinks on one occasion?: Less than monthly Total Score: 6 ROHITH-7 AMB Questionnaire ROHITH-7 Date ROHITH - 7 assessed: 10/29/23 Feeling nervous, anxious, or on edge: 0 = Not at all Not being able to stop or control worryin = Not at all Worrying too much about different things: 0 = Not at all Trouble relaxin = Not at all Being so restless that it is hard to sit still: 0 = Not at all Becoming easily annoyed or irritable: 0 = Not at all Feeling afraid as if something awful might happen: 0 = Not at all Total ROHITH-7 score (0-4 normal; 5-9 mild; 10-14 moderate; 15-21 severe): 0 Source: Developed by Drs. Bernardo Moses, Gia Forrester, Jose M Lorenzo and colleagues, with an educational seble from [employer] Review of Systems Const Denies body aches, Denies chills, Denies excessive sweating, Denies fatigue, Denies fever(s) and Denies headache(s) Eyes Denies blurry vision ENT Denies dysphagia, Denies vertigo, Denies dizziness, Denies headache(s), Denies hearing loss and Denies tinnitus Card Denies chest pain, Denies chest pain with activity, Denies syncope, Denies irregular heart rhythm and Denies dyspnea Resp Denies chest congestion, Denies cough, Denies hemoptysis, Denies dyspnea and Denies wheezing GI Denies abdominal pain, Denies melena, Denies hematochezia, Denies coffee ground emesis, Denies dysphagia, Denies diarrhea, Denies nausea and Denies vomiting Denies urinary frequency, Denies dysuria, Denies urinary hesitancy and Denies urinary urgency Musc Denies arthralgias, Denies limited range of motion, Denies muscle cramps and Denies muscle weakness Skin/Breast Denies rash and Denies skin ulcer Neuro Denies Abnormal speech present, Denies confusion, Denies vertigo, Denies dizziness, Denies syncope, Denies headache(s), Denies memory loss and Denies seizure-like activity Psych Denies anxiety, Denies confusion, Denies depression, Denies memory loss, Denies panic attacks and Denies paranoia Endo Denies excessive sweating, Denies fatigue, Denies flushing, Denies polydipsia and Denies polyuria Aller/Immun Denies wheezing Physical exam (Primary Care) Vital Signs: Last Vital Signs Pulse 110 H 04/02/24 09:13 BP 140/84 H 04/02/24 09:13 Pulse Ox 96 04/02/24 09:13 Oxygen Delivery Method Room Air 04/02/24 09:13 BMI result Body Mass Index 30.5 Tobacco/Smoking Status: Tobacco use Status Tobacco use date assessed 10/29/23 04/02/24 09:07 Patient Tobacco Use Status Former Tobacco user 04/02/24 09:21 e-Cigarette/Vaping Use Never Used 04/02/24 09:21 PHQ-9: PHQ-9 Score PHQ-9: Total score 0 04/02/24 09:21 Thrive Assessment: Date of Thrive Assessment Date Thrive assessed 04/02/24 04/02/24 09:15 Currently or been in a relationship where the following occur: No concerns reported Const General: cooperative, comfortable, no acute distress, alert and awake; No confusion Orientation/consciousness: oriented to person, oriented to place, patient oriented x3 and No confusion HENMT Head: Yes normocephalic Ears: external ears normal and TM's normal bilaterally Face and sinus: No sinus tenderness Mouth: Normal oral and palatal mucosa present and tongue normal Teeth and gingiva: dentition normal and gingiva normal Throat: Yes posterior oropharynx normal, Yes tonsils normal and Yes uvula midline Eyes Conjunctivae: conjunctivae normal Sclerae: sclerae normal Pupils: Equal, round and reactive pupils present EOM: EOMs intact bilaterally Direct Ophthalmoscopy: No no photophobia Neck Neck: Yes no lymphadenopathy, No tender and Yes no JVD Thyroid: Thyroid normal Carotids: no bruits Chest Chest palpation & inspection: no tenderness Resp Effort & Inspection: normal respiratory effort, no audible wheezes, not labored and no stridor Auscultation: no crackles, no rales, no rhonchi and no wheezes Cardio Jugular venous distension: no JVD Rate: regular rate, not bradycardic and not tachycardic Rhythm: regular rhythm Bruits: no carotid bruits Peripheral pulses: Peripheral pulses 2+ throughout GI Inspection: Yes normal to inspection, No abdominal wall ecchymosis and No visible herniation Palpation (GI): Soft to palpation, nontender, no guarding, not rigid and No hepatosplenomegaly present Auscultation: normoactive bowel sounds General: Yes no CVA tenderness Back/Spine/Pelvis Back: no CVA tenderness and No back tenderness Cervical Spine: cervical ROM normal Thoracic/Lumbar Spine: thoracic and lumbar spine normal to inspection, straight leg raise negative bilaterally, No thoraco-lumbar ROM limited and No lumbar spinal tenderness Skin Lesions: no lesions Rashes: no rashes Wounds: no wounds Neuro General: oriented to person, oriented to place, patient oriented x3, CN's II-XI intact bilaterally and No confusion Cranial nerves: Yes Equal, round and reactive pupils present and Yes Normal accommodation reflex present Cognition (Neuro): normal cognition Speech: No Abnormal speech present Gait exam (Neuro): Normal gait present Motor exam (neuro): 5/5 motor strength present throughout Extrem Right upper extremity: full ROM; no cyanosis Left upper extremity: full ROM; no cyanosis Right lower extremity: no edema Left lower extremity: no edema Psych Appearance: grossly normal Mental Status: mental status grossly normal Affect: normal affect Attitude: cooperative Thought process: Normal thought process present Office Procedures Flu Questionnaire Does the patient have a severe egg allergy?: No Does the patient have severe life threatening allergies?: No Does the patient have a fever or illness today?: No Has the patient ever had Guillain-[place] Syndrome?: No Has the patient ever had any past reaction to a flu shot?: No Immunizations Fluarix Triv [id number] (PF) 45 mcg (15 mcg x 3)/0.5 mL IM syringe Performing Provider: Dilan Lopez PA-C [place] Documented (not given) by: TITA Jurado on 04/02/24 09:21 Reason Not Given: Patient Refused Coding Diagnoses Annual physical exam Z00.00 Mucopurulent chronic bronchitis J41.1 COPD type: chronic bronchitis Chronic bronchitis type: mucopurulent Mixed hyperlipidemia E78.2 Hyperlipidemia type: mixed hyperlipidemia Primary hypertension I10 Hypertension type: primary hypertension Assessment & Plan Assessment & Plan (1) Annual physical exam: Code(s): Z00.00 - Encounter for general adult medical examination without abnormal findings Category: Medical Plan: As per HPI (2) COPD (chronic obstructive pulmonary disease): Code(s): J44.9 - Chronic obstructive pulmonary disease, unspecified Category: Medical Qualifiers: COPD type: chronic bronchitis Chronic bronchitis type: mucopurulent Qualified Code(s): J41.1 - Mucopurulent chronic bronchitis Plan: Patient's COPD has been fairly well controlled with p.r.n. use of her albuterol inhaler. No recent COPD exacerbations. Quit smoking in 2017. (3) HLD (hyperlipidemia): Code(s): E78.5 - Hyperlipidemia, unspecified Category: Medical Qualifiers: Hyperlipidemia type: mixed hyperlipidemia Qualified Code(s): E78.2 - Mixed hyperlipidemia Plan: Patient's most recent lipid panel showing borderline high total cholesterol and triglycerides. She continues on simvastatin 20 mg without significant side effects. Goal LDL is to remain below 130 (4) HTN (hypertension): Code(s): I10 - Essential (primary) hypertension Category: Medical Qualifiers: Hypertension type: primary hypertension Qualified Code(s): I10 - Essential (primary) hypertension Plan: Patient's blood pressure slightly elevated today in office. She consistently uses her lisinopril 5 mg. She reports she has been stress due to a in the family recently. Advised to monitor blood pressure with goal blood pressure to remain below 140/90 Orders: Orders Influenza [id number] Immunization Today Z23 - Encounter for immunization Microalbumin, Random (w Creat) Today I10 - Essential (primary) hypertension Comprehensive [place]. Panel Fast Today I10 - Essential (primary) hypertension Complete Blood Count no Diff Today I10 - Essential (primary) hypertension Lipid Panel Today E78.2 - Mixed hyperlipidemia Referrals Orthopedics Referral S82.61XS - Displaced fracture of lateral malleolus of right fibula, sequela Medications: Refilled gabapentin 300 mg PO BID 60 caps 3RF pain, moderate 30 days M25.669 - Stiffness of unspecified knee, not elsewhere classified, T84.89XA - Other specified complication of internal orthopedic prosthetic devices, implants and grafts, initial encounter, Z96.659 - Presence of unspecified artificial knee joint
[2024-04-02 09:13] VITALS: BP 140/84; PULSE 110; O2SAT 96; BMI 30.5
== END 2024-04-02 09:36 | disposition home or self-care (01) ==
PROVIDERS: PCP Physician Assistant; Visit Provider Physician Assistant
DX: Z00.00 Encounter for general adult medical examination without abnormal findings (principal); R73.09 Other abnormal glucose; I10 Essential (primary) hypertension; S82.61XS Displaced fracture of lateral malleolus of right fibula, sequela

== ENCOUNTER → 2024-04-02 09:00 | Outpatient (BNVA) | payer MEDICARE, MEDICAID, SELFPAY | PROVIDERS: PCP Physician Assistant; Visit Provider Physician Assistant | DX: Z00.00 Encounter for general adult medical examination without abnormal findings (principal); R73.09 Other abnormal glucose; I10 Essential (primary) hypertension; S82.61XS Displaced fracture of lateral malleolus of right fibula, sequela | CPT/HCPCS: 96127; 99396 ==

== ENCOUNTER 2024-04-30 12:05 | Outpatient (REF) | payer MEDICARE, MEDICAID, SELFPAY | END 2024-04-30 12:06 | disposition home or self-care (01) | LOC: HO.MAMMO 12:05 | PROVIDERS: PCP Physician Assistant; Visit Provider Physician Assistant | DX: Z12.31 Encounter for screening mammogram for malignant neoplasm of breast (principal) | CPT/HCPCS: 77063; 77067 ==

== ENCOUNTER → 2024-04-30 12:30 | Outpatient (BNV) | payer MEDICARE, MEDICAID, SELFPAY | PROVIDERS: PCP Physician Assistant; Visit Provider Internal Medicine | DX: Z12.31 Encounter for screening mammogram for malignant neoplasm of breast (principal) | CPT/HCPCS: 77063; 77067 ==

== ENCOUNTER 2024-09-30 07:55 | Outpatient (AMB) | payer MEDICARE, MEDICAID, SELFPAY ==
--- NOTE | 2024-09-30 08:07 | A.OFFPC_ITS ---
Vital Signs 09/30/24 08:09 Height 5 ft 2 in Weight 167 lb 4 oz BMI 30.6 BP 120/60 Blood Pressure Location Lt brachial Position Sitting Pulse 94 Pulse Source Pulse Oximeter Temp 96.9 F Temp Source Temporal Artery Scan Pulse Oximetry (%) 95 Oxygen Delivery Method Room Air Intake Visit Reasons: 6 month f/u Intake Note: Patient is here to follow up on COPD, HTN, HLD. Gluten Settling Tender Required: No Furniture Mover Helper: Not Required per policy Accompanied by: Self / Same As Patient Allergies No Known Allergies [No Known Allergies*] Allergy (Verified 09/30/24 08:15) Medication List - Last Reconciled 09/30/24 by Dilan Lopez PA-C albuterol sulfate 90 mcg/actuation (Ventolin HFA) 1 inh inhalation QID 30 days buprenorphine-naloxone 8-2 mg (Suboxone) 1 film buccal DAILY gabapentin 300 mg PO BID 30 days lisinopril 5 mg PO DAILY pantoprazole 40 mg PO DAILY 90 days polyethylene glycol 3350 (Miralax) 17 grams PO DAILY simvastatin 20 mg PO DAILY 90 days Tobacco use date assessed: 09/30/24 Fall risk assessment: No Falls in past year Last assessed Fall Risk: 09/30/24 Dental Screening Dental Screen Date: 09/30/24 Did you have a dental visit in the last 12 months?: No Did you have a dental problem in the last 6 months where you did not have access to dental care?: No Was dental information given to patient?: No (Dentures) HPI 6 month f/u HPI Details Patient is a 63-year-old female here today for follow-up visit.? Patient has a past medical history significant for hyperlipidemia, LEft knee deformity/ osteoarthritis,? opiate dependence and on Suboxone to a local clinic. Concerns--> The patient reports chronic neck and lower back pain. For the neck pain, which extends from her neck through the upper back, she describes a consistent aching, not feeling like a pulled muscle, that has progressively worsened. The lower back pain is significant enough to impede her ability to walk or bend after midday, confining her to bed. This problem has been ongoing for some time, and the patient has tolerated it until it reached intolerable levels. She also experiences a persistent morning cough. Described as severe burning, like on fire, the cough sometimes leads to self-induced emesis to relieve symptoms. The sputum is sometimes greenish, though clear at times. She previously smoked but has quit entirely. Despite using Ventolin inhaler, she remains concerned as previous endoscopic interventions to open her throat have already been conducted multiple times. Avulsion fracture right ankle: Has done physical therapy does feel she is making any improvement. Continues to have pretty significant pain over her lateral malleolus over right ankle She would like to see Orthopedics for further evaluation. CHRONIC MEDICAL CONDITIONS--> .. Hypertension: Continues on 5 mg lisinopril with good control of her blood pressure. Blood pressure today in office slightly elevated, she admits to having white coat hypertension. She reports that home blood pressures are 120s 130 systolic. .. Knee osteoarthritis status post replacement: continues to left knee pain swelling and decreased range of motion.? Has seen her orthopedic and was advised to to start physical therapy.? Recommendations also made for possible evaluation by pain management. X-ray knee showing--> Left knee replacement. Question increasing lucency of the superior patella. Small joint effusion.? ?She has had this is an existing condition over the last several years since knee replacement and revisions.? Of note-- > Prev PCP was Dr Pederson.? She has a past history left knee osteoarthritis requiring total knee replacement though was complicated and needed reconstructive surgery.? She was dependent on opiates and now has transition to [facility]. She reports her knee pain has been bit better. Has been using gabapentin 300 daily with decent affect though is interested in increasing her gabapentin dose for better pain relief. We have increased her gabapentin to 300 twice a day. /.. Hyperlipidemia:? Patient was started on low potency? statin therapy and her fasting lipid panel much improved., .. Former smoker; she does report having some shortness of breath with minimal exertion as of late. Denies any chest pain. She does report quitting smoking 2017 though was a smoker for 2025 years. Patient did start a rescue inhaler which has helped her be more physically active [facility] Medical History De Quervain's tenosynovitis, right Postoperative stiffness of total knee replacement Former smoker GERD (gastroesophageal reflux disease) Opiate dependence Dysphagia Elevated cholesterol HTN (hypertension) Failed total knee arthroplasty Surgical History Hx of total knee replacement History of esophagogastroduodenoscopy (EGD) Family History Son Kidney malignancy Social History Housing: House Alcohol intake: current Alcohol intake frequency: a few times a month Patient Tobacco Use Status: Former Tobacco user e-Cigarette/Vaping Use: Never Used Second Hand Smoke Exposure: Yes Substance Use Type: Marijuana service: No Current occupational status: employed 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 1. Little interest or pleasure in doing things: nearly every day 2. Feeling down, depressed, or hopeless: not at all 3. Trouble falling or staying asleep, or sleeping too much: not at all 4. Feeling tired or having little energy: several days 5. Poor appetite or overeating: not at all 6. Feeling bad about yourself - or that you are a failure or have let yourself or your family down: not at all 7. Trouble concentrating on things, such as reading the newspaper or watching television: not at all 8. Moving or speaking so slowly that other people could have noticed. Or the opposite - being so fidgety or restless that you have been moving around a lot more than usual: not at all 9. Thoughts that you would be better off or of hurting yourself in some way: not at all Total score: 4 Depression Screening Interpretation: Positive Depression Screening Done: Yes Source: Developed by Drs. Bernardo Moses, Gia Forrester, Jose M Lorenzo and colleagues, with an educational seble from [employer]. Thrive Questionnaire Date Thrive assessed: 09/30/24 I am a: Patient What is your living situation today?: I have a steady place to live Within the past 12 months, did the food you bought not last and you didn't have the money to get more?: I choose not to answer this question Within the past 12 months, did you worry whether your food would run out before you got money to buy more?: I choose not to answer this question Do you have trouble paying for medicines?: No Do you have trouble getting transportation to medical appointments?: No Do you have trouble paying your heating and electricity bill?: No Do you have trouble taking care of your child, family member or friend?: No Do you have trouble with day-to-day activities such as bathing, preparing meals, shopping, managing finances, etc.?: No Are you currently unemployed and looking for a job?: No Are you interested in more education?: No Please select the resources that you would like help with: None THRIVE Score: 0 AUDIT C Alcohol Use Questionnaire (AUDIT-C) 1. How often do you have a drink containing alcohol?: 2-4 times a month Total Score: 2 ROHITH-7 AMB Questionnaire ROHITH-7 Date ROHITH - 7 assessed: 09/30/24 Feeling nervous, anxious, or on edge: 0 = Not at all Not being able to stop or control worryin = Not at all Worrying too much about different things: 0 = Not at all Trouble relaxin = Not at all Being so restless that it is hard to sit still: 0 = Not at all Becoming easily annoyed or irritable: 0 = Not at all Feeling afraid as if something awful might happen: 0 = Not at all Total ROHITH-7 score (0-4 normal; 5-9 mild; 10-14 moderate; 15-21 severe): 0 Source: Developed by Drs. Bernardo Moses, Gia Forrester, Jose M Lorenzo and colleagues, with an educational seble from [employer]. Review of Systems Const Denies headache(s) Eyes Denies loss of vision ENT Denies vertigo, Denies dizziness, Denies headache(s) and Denies sore throat Card Denies chest pain, Denies leg edema and Denies lightheadedness Resp Reports cough, Denies hemoptysis and Denies wheezing GI Denies abdominal pain, Denies melena, Denies constipation, Denies diarrhea and Denies vomiting Denies urinary frequency, Denies dysuria and Denies urinary urgency Musc Denies arthralgias, Denies joint swelling, Denies numbness and Denies tingling Neuro Denies Abnormal speech present, Denies behavioral changes, Denies vertigo, Denies dizziness, Denies headache(s), Denies loss of vision, Denies memory loss, Denies numbness and Denies tingling Psych Denies anxiety, Denies behavioral changes, Denies depression, Denies memory loss and Denies panic attacks Néstor/Lymph Denies easy bleeding and Denies easy bruising Aller/Immun Denies wheezing Physical exam (Primary Care) Vital Signs: Last Vital Signs Temp 96.9 F 09/30/24 08:09 Pulse 94 09/30/24 08:09 BP 120/60 09/30/24 08:09 Pulse Ox 95 09/30/24 08:09 Oxygen Delivery Method Room Air 09/30/24 08:09 BMI result Body Mass Index 30.6 Tobacco/Smoking Status: Tobacco use Status Tobacco use date assessed 09/30/24 09/30/24 08:13 Patient Tobacco Use Status Former Tobacco user 09/30/24 08:13 e-Cigarette/Vaping Use Never Used 09/30/24 08:13 PHQ-9: PHQ-9 Score PHQ-9: Total score 4 09/30/24 08:16 Depression Screening Interpretation: Positive Thrive Assessment: Date of Thrive Assessment Date Thrive assessed 09/30/24 09/30/24 08:13 Const General: healthy appearing, no acute distress, alert and awake Nutritional Appearance: well nourished Orientation/consciousness: oriented to person, oriented to place and oriented to time HENMT Ears: TM's normal bilaterally General nose exam: Normal nasal mucous membranes and turbinates present Eyes Conjunctivae: conjunctivae normal Sclerae: sclerae normal Pupils: Equal, round and reactive pupils present Neck Neck: Yes no lymphadenopathy and Yes no JVD Thyroid: Thyroid normal Carotids: no bruits Resp Effort & Inspection: normal respiratory effort and not tachypneic Auscultation: no crackles, no rales, no rhonchi and no wheezes Cardio Rate: regular rate Rhythm: regular rhythm Heart sounds: no murmurs and normal S1 and S2 GI Palpation (GI): Soft to palpation, nontender, no hepatomegaly and no splenomegaly Auscultation: normal bowel sounds Skin General skin exam: no rashes or lesions noted and dry skin Neuro General: oriented to person, oriented to place and oriented to time Cranial nerves: Yes Equal, round and reactive pupils present Speech: No Abnormal speech present Gait exam (Neuro): Normal gait present Motor exam (neuro): no tremor noted Extrem Right upper extremity: full ROM Left upper extremity: full ROM Right lower extremity: full ROM; no edema Left lower extremity: full ROM; no edema Psych Mental Status: mental status grossly normal Speech and movement: Normal speech and movement present Affect: normal affect Attitude: cooperative Thought process: Normal thought process present Coding Level of Care Code Est Pt Level 4 (44686) Diagnoses Impaired glucose metabolism R73.09 Primary hypertension I10 Hypertension type: primary hypertension Closed avulsion fracture of lateral malleolus of right fibula, sequela S82.61XS Encounter type: sequela Fracture type: closed Chronic midline low back pain without sciatica M54.50; G89.29 Back pain laterality: midline Chronicity: chronic Sciatica presence: without sciatica Mucopurulent chronic bronchitis J41.1 COPD type: chronic bronchitis Chronic bronchitis type: mucopurulent Failure of total knee replacement, sequela T84.018S; Z96.659 Encounter type: sequela Uncomplicated opioid dependence F11.20 Substance use status: uncomplicated Assessment & Plan Assessment & Plan (1) Impaired glucose metabolism: Code(s): R73.09 - Other abnormal glucose Category: Medical Plan: Patient's most recent fasting blood sugar slightly elevated. She will work on lifestyle and dietary modifications to reduce her sugars. (2) HTN (hypertension): Code(s): I10 - Essential (primary) hypertension Category: Medical Qualifiers: Hypertension type: primary hypertension Qualified Code(s): I10 - Essential (primary) hypertension Plan: Patient's blood pressure acceptable today in office. . Will continue current dose of lisinopril 5 mg. Goal blood pressures to be below 140/90 (3) Avulsion fracture of lateral malleolus of right fibula: Code(s): S82.61XA - Displaced fracture of lateral malleolus of right fibula, initial encounter for closed fracture Category: Medical Qualifiers: Encounter type: sequela Fracture type: closed Qualified Code(s): S82.61XS - Displaced fracture of lateral malleolus of right fibula, sequela Plan: As per HPI patient continues to right lateral ankle pain due to an avulsion fracture. Unfortunately has not made much progress in physical therapy. She would like to see Orthopedics for further evaluation and treatment (4) Low back pain: Code(s): M54.50 - Low back pain, unspecified Category: Medical Qualifiers: Back pain laterality: midline Chronicity: chronic Sciatica presence: without sciatica Qualified Code(s): M54.50 - Low back pain, unspecified; G89.29 - Other chronic pain Plan: Patient experiencing low back pain over last few weeks. Denies any radiculopathy down lower extremities. Denies any recent lifting injuries or falls. Will supply patient with baclofen to use for muscle relaxation. Will likely benefit from physical therapy. Will send for x-ray to evaluate for any bony abnormalities (5) COPD (chronic obstructive pulmonary disease): Code(s): J44.9 - Chronic obstructive pulmonary disease, unspecified Category: Medical Qualifiers: COPD type: chronic bronchitis Chronic bronchitis type: mucopurulent Qualified Code(s): J41.1 - Mucopurulent chronic bronchitis Plan: Patient is a former smoker, continues to use Ventolin for her shortness of breath and wheeze on times. Over the last 2 months has been noticing a worsening morning cough. She admits this may be related to allergies. Will supply patient with a prednisone taper for possible COPD exacerbation. Will hold off on antibiotics for now. Will send for x-ray to evaluate for any pulmonary infiltrate noted. (6) Failed total knee arthroplasty: Code(s): T84.018A - Broken internal joint prosthesis, other site, initial encounter; Z96.659 - Presence of unspecified artificial knee joint Category: Medical Qualifiers: Encounter type: sequela Qualified Code(s): T84.018S - Broken internal joint prosthesis, other site, sequela; Z96.659 - Presence of unspecified artificial knee joint Plan: Continues to have fairly bad knee pain that limits some of her ability to walk or stand for long periods of time. She has seen many Orthopedics and is not a candidate (7) Opiate dependence: Code(s): F11.20 - Opioid dependence, uncomplicated Category: Medical Qualifiers: Substance use status: uncomplicated Qualified Code(s): F11.20 - Opioid dependence, uncomplicated Plan: Continues on Suboxone from a local Suboxone clinic. Orders: Orders PT Evaluation and Treatment Today G89.29 - Other chronic pain, M54.50 - Low back pain, unspecified Lipid Panel Today E78.2 - Mixed hyperlipidemia Hemoglobin A1c Today R73.09 - Other abnormal glucose XR lumbar spine 4V min Today G89.29 - Other chronic pain, M54.50 - Low back pain, unspecified XR chest 2V Today J41.1 - Mucopurulent chronic bronchitis Comprehensive [place]. Panel Fast Today R73.09 - Other abnormal glucose Complete Blood Count no Diff Today R73.09 - Other abnormal glucose Referrals Orthopedics Referral S82.61XS - Displaced fracture of lateral malleolus of right fibula, sequela Medications: New prednisone Take 3 tablets x3 days, 2 tablets x3 days, 1 tablet x3 days 10 mg PO DIRECTED 18 tabs 0RF 9 days J41.1 - Mucopurulent chronic bronchitis baclofen 10 mg PO DAILY 14 tabs 0RF 14 days G89.29 - Other chronic pain, M54.50 - Low back pain, unspecified
[2024-09-30 08:09] VITALS: BP 120/60; PULSE 94; TEMP 36.1; O2SAT 95; BMI 30.6
== END 2024-09-30 08:31 | disposition home or self-care (01) ==
LOC: HO.HMCH 07:56
PROVIDERS: PCP Physician Assistant; Visit Provider Physician Assistant
DX: R73.09 Other abnormal glucose (principal); J41.1 Mucopurulent chronic bronchitis; F11.20 Opioid dependence, uncomplicated; I10 Essential (primary) hypertension; S82.61XS Displaced fracture of lateral malleolus of right fibula, sequela; M54.50 Low back pain, unspecified; G89.29 Other chronic pain; T84.01 Broken internal joint prosthesis; Z96.659 Presence of unspecified artificial knee joint

== ENCOUNTER → 2024-09-30 07:55 | Outpatient (BNVA) | payer MEDICARE, MEDICAID, SELFPAY | PROVIDERS: PCP Physician Assistant; Visit Provider Physician Assistant | DX: R73.09 Other abnormal glucose (principal); I10 Essential (primary) hypertension; S82.61XS Displaced fracture of lateral malleolus of right fibula, sequela; M54.50 Low back pain, unspecified; G89.29 Other chronic pain; J41.1 Mucopurulent chronic bronchitis; F11.20 Opioid dependence, uncomplicated; T84.012S Broken internal right knee prosthesis, sequela; Z96.651 Presence of right artificial knee joint | CPT/HCPCS: 99212 ==

== ENCOUNTER 2025-01-21 12:55 | Outpatient (REF) | payer MEDICARE, SELFPAY ==
--- NOTE | ~2025-01-21 | US_ITS ---
EXAMINATION: US PELVIS CLINICAL INFORMATION: Postmenopausal bleeding. History of tubal ligation and probable oophorectomy. COMPARISON: None available. TECHNIQUE: Ultrasound of the pelvis is performed using both transabdominal and transvaginal transducers along with Doppler. Transvaginal imaging is performed due to inadequate visualization transabdominally. FINDINGS: Uterus: The uterus is anteverted and measures 4.4 x 3.1 x 3.7 cm. The cervix is normal in appearance with small nabothian cysts. The double wall endometrial thickness is 2 mm. It is uniform. The uterus is smooth in contour and has mildly heterogeneous myometrial echogenicity. No visible fibroid. Adnexa: Neither ovary is visualized. There is no pelvic ascites or fluid collection. There are no adnexal masses. US/US pelvic and transvaginal IMPRESSION: 1. Neither ovary could be visualized. There are no adnexal masses.. No free pelvic fluid. 2. Normal-appearing senescent uterus. Endometrium is 2 mm and uniform. Electronically signed by: Miquel Mccarthy MD 01/21/2025 01:58 PM EDT
--- OUTSIDE RECORDS SUMMARY | 2025-01-21 14:14 | XMS_ITS | Clinical Summary ---
Author Organization [facility] Address [address] [phone] Phone Care Team Providers Care Departmental Shipping Clerk Name Role Phone Ny Etienne MD Primary Care Provider Social History Tobacco Use Types Packs/Day Years Used Date Smoking Tobacco: Never Assessed Education Answer Date Recorded Are you interested in more education? Not on russ e 09/14/2022 Are you concerned about learning? Not on file 09/14/2022 No 09/14/2022 No 09/14/2022 Digital Access Answer Date Recorded No 10/13/2022 No 10/13/2022 No 10/13/2022 Reliable internet access at home? Not on file 10/13/2022 Device with a working camera? Not on file Comments Unknown Sex and Gender Information Value Date Recorded Sex Assigned at Not on file Legal Sex Female 1:06 PM EST Gender Identity Not on file Sexual Orientation Not on file Plan of Treatment Health Maintenance Due Date Last Done Comments Adult Td,Tdap Booster 1959 LIPID PANEL 1959 DEPRESSION SCREENING 1971 SMOKING Hx and SMOKELESS TOBACCO SCREENING 11/25/1972 HEPATITIS C SCREENING 11/25/1977 HIV ONE-TIME SCREENING (18-6 5 YEARS) 11/25/1977 MAMMOGRAM 1999 COLOGUARD 11/25/2004 COLONOSCOPY 11/25/2004 COLORECTAL CANCER SCREENING 11/25/2004 FIT TEST 11/25/2004 FOBT 11/25/2004 SIGMOIDOSCOPY 11/25/2004 VIRTUAL COLONOSCOPY 11/25/2004 ZOSTER VACCINES (1 of 2) 11/25/2009 PNEUMOCOCCAL VACCINES (50+ years) (2 of 2 - PCV) 12/05/2021 12/05/2020 OSTEOPOROSIS SCREENING INITI AL (ONE-TIME) 11/25/2024 INFLUENZA VACCINE (#1) 2024 COVID-19 VACCINE (3 - 2024-2 6 season) 2025 10/28/2020, 10/07/2020 RSV VACCINE (1 - 1-dose 75+ series) 11/25/2034 HEPATITIS A VACCINES Aged Out No long er eligible based on patient's age to complete this topic HIB VACCINES Aged Out No longer eligi ble based on patient's age to complete this topic MENINGOCOCCAL VACCINES (ACWY) Aged Out No longer eligible based on patient's age to complete this topic MENINGOCOCCAL VACCINES (B) Aged Out N o longer eligible based on patient's age to complete this topic Medical Devices Not on file Insurance [email or web address] [place] [employer] [place] [employer] [place] [employer] Care Teams Departmental Shipping Clerk Relationship Specialty Start Date End Date Ny Etienne MD [address] [place] [address] [address] [place] [address] PCP - General 05/03/17 Additional Source Comments The information contained in this document represents components of the legal health record. It is not the complete legal health record.[facility]
== END 2025-01-21 12:56 | disposition home or self-care (01) ==
LOC: HO.US 12:55
PROVIDERS: PCP Physician Assistant; Visit Provider Physician Assistant
DX: N95.0 Postmenopausal bleeding (principal)
CPT/HCPCS: 76830; 76856

== ENCOUNTER → 2025-01-21 12:56 | Outpatient (BNV) | payer MEDICARE, SELFPAY | PROVIDERS: PCP Physician Assistant; Visit Provider Radiology Diagnostic Radiology | DX: N95.0 Postmenopausal bleeding (principal) | CPT/HCPCS: 76830; 76856 ==

== ENCOUNTER 2025-03-04 09:27 | Outpatient (REF) | payer MEDICARE, SELFPAY ==
--- OUTSIDE RECORDS SUMMARY | 2025-03-04 11:21 | XMS_ITS | Data Portability ---
Author Organization [facility], [facility] [place] Address [address] [place] [address] Care Team Providers Care Pad Assembler Name Role Phone SANYA ONEAL Referring Provider SANYA ONEAL Primary Care Provider Assessment Encounter Date Assessment Date Assessment LastModified by Organization Details LastModified Time 12/22/2024 12/22/2024 ASSESSMENT: Pt tolerated ex well without increase in pain PLAN: Frequency: 2x per week, Duration: 6 weeks PROM / AAROM / AROM LE strengthening balance / proprioception manual therapy and modalities prn gait training transfer training Not available 12/22/2024 15:05:55 12/29/2024 12/29/2024 ASSESSMENT: Pt. challenged with narrow base of support proprioception exercises needing one UE support to maintain balance. Mild discomfort when performing wobble board CW and CCW exercises, but able to tolerate all other directions. PLAN: Frequency: 2x per week, Duration: 6 weeks PROM / AAROM / AROM LE strengthening balance / proprioception manual therapy and modalities prn gait training transfer training [email or web address] Not available 12/29/2024 14:15:34 01/07/2025 01/07/2025 ASSESSMENT: Pt. was unable to complete SLS on level ground dt experiencing moderate discomfort. However, able to tolerate a modification with rebound er exercises with mild discomfort experienced. PLAN: Frequency: 2x per week, Duration: 6 weeks PROM / AAROM / AROM LE strengthening balance / proprioception manual therapy and modalities prn gait training transfer training Not available 01/07/2025 13:52:57 01/14/2025 01/14/2025 ASSESSMENT: Pt. with continued TTP to [place] and reports general achiness with driving still. DEnies improvement in sx since beginning therapy. PLAN: Frequency: 2x per week, Duration: 6 weeks PROM / AAROM / AROM LE strengthening balance / proprioception manual therapy and modalities prn gait training transfer training Not available 01/14/2025 12:43:26 Plan of Treatment Reminders Order Date Submit Date Provider Last Modified By Organization Details Last Modified Time Details Appointments RECHECK 15 2024 01:00P Toya Watts PA-C Not available Not available Not available Lab None recorded. Referral None recorded. Procedures None recorded. Surgeries None recorded. Imaging MRI, ankle, w/o contrast - EVAL PERONEAL TENDON 2024 025 [facility] ([facility]), [address] [place] [address], [address], 02/05/2025 09:15:58 Medication Orders None recorded. Patient TargetsNo targets recorded. Patient InstructionsNo instructions recorded. Reason for Referral None Reported. Results Created Date Observation Date Name Description Value Unit Range Abnormal Flag Note LastModifiedBy Organization Detail LastModifiedTime 02/05/2002/04/2025 MRI, ankle , w/o contr ast [facility]- [facility] Access ion Number : [id number] Dorinajaron rael Name: Nayely Gan l Record Number : [id number] Date of : 1960 Date of Exam: 2024 Referr ing Physic jarred: [facility] [address] [place] [address] , [address] [place] [address] Exam: MR Ankle (C-) CPT 70617 - Right Room Descri ption: [facility] Verio 3.0T MRI Joint Ext Lower W/O Contra st Right CLINIC AL INDICA TION: Pain after breanna g ankle one year ago. Concer n for perone al tendon injury . TECHNI QUE: MR of the right ankle was perfor med withou t intrav enous contra st. COMPAR YARITZA: None FINDIN GS: Interm ediate T2 signal within the anteri or talofi bular and calcan eofibu lar ligame nts Anteri or and tailing machine operator ior tibiof ibular ligame nts are intact . Leather Production Artisan ior talofi bular ligame nt is intact . Deltoi d ligame nt is intact . Interm ediate signal within a thicke koffi tibion avicul ar portio n of the deltoi d ligame nt. Medial flexor tendon s of the ankle are intact . Perone us longus and brevis tendin opathy with mild perone al tenosy noviti s. Extens or tendon s of the ankle are intact . Achill es tendon is intact . Planta r fascia is intact . Sinus tarsi is within normal limits Small amount of marrow edema like signal and degene rative cystic change across the calcan eocubo id articu lation , fourth TMT joint and articu lation betwee n the navicu lar and first cuneif orm Impres lul: Interm ediate T2 signal within the anteri or talofi bular and calcan eofibu lar ligame nts may be second fareed to myxoid degene ration from previo us or chroni c partia l injury /sprai n Mild perone us longus and brevis tendin opathy with mild perone al tenosy noviti s Interm ediate signal within a thicke koffi tibion avicul ar portio n of the deltoi d ligame nt may be due to myxoid degene ration Mild mid foot osteoa rthrit is as outlin ed above. I have person ally review ed the images and I agree with this report . WSN: [id number] Orderi Physic jarred: Latoya Ramey [facility] onical ly Signed By: Laura Sotelo MD [email or web address] [facility] ([facility]) [address] [facility] [place], [address], 02/05/2025 09:16:09 Result Notes Documentation Provider Name and Address Organization Details Recorded Time Mri, Ankle, W/o Contrast : [facility] Accession Number: [id number] Patient Name: Kelly Zuniga Date of : 1960 Date of Exam: 02-04-2025 Referring Physician: Latoya Watts [facility] ([facility]) [address] [facility], [address] [place] [address] Exam: MR Ankle (C-) CPT 14567 - Right Room Description: [facility] 3.0T MRI Joint Ext Lower W/O Contrast Right CLINICAL INDICATION: Pain after rolling ankle one year ago. Concern for peroneal tendon injury. TECHNIQUE: MR of the right ankle was performed without intravenous contrast. COMPARISON: None FINDINGS: Intermediate T2 signal within the anterior talofibular and calcaneofibular ligaments Anterior and posterior tibiofibular ligaments are intact. Posterior talofibular ligament is intact. Deltoid ligament is intact. Intermediate signal within a thickened tibionavicular portion of the deltoid ligament. Medial flexor tendons of the ankle are intact. Peroneus longus and brevis tendinopathy with mild peroneal tenosynovitis. Extensor tendons of the ankle are intact. Achilles tendon is intact. Plantar fascia is intact. Sinus tarsi is within normal limits Small amount of marrow edema like signal and degenerative cystic change across the calcaneocuboid articulation, fourth TMT joint and articulation between the navicular and first cuneiform Impression: Intermediate T2 signal within the anterior talofibular and calcaneofibular ligaments may be secondary to myxoid degeneration from previous or chronic partial injury/sprain Mild peroneus longus and brevis tendinopathy with mild peroneal tenosynovitis Intermediate signal within a thickened tibionavicular portion of the deltoid ligament may be due to myxoid degeneration Mild mid foot osteoarthritis as outlined above. I have personally reviewed the images and I agree with this report. WSN: [id number] Ordering Physician: Latoya Watts Electronically Signed By: Cesar chahal [place] - [facility] 02/05/2025 09:16:09 Procedures Surgical History Date Name Laterality Status Provider Name and Address Organization Details Recorded Time 01/29/20 25 [id number] Therapeutic Exercise (1:1) cancelled Bhavna Reece PT [address] [facility] [address] [facility], [place], [address], [facility] - [facility] 01/26/2025 13:29:15 01/29/20 25 33883: Manual therapy cancelled Bhavna Reece PT [address] [facility] [address] [address], [place], [address], [facility] 01/26/2025 13:29:15 01/15/20 34495 Therapeutic Exercise (1:1) completed Bhavna Reece, PT [address], [place], [address], [facility] 01/14/2025 12:41:15 01/15/20 54337: Manual therapy completed Bhavna Reece, PT [address], [place], [address], [facility] 01/14/2025 12:41:20 01/08/20 72330: Neuromuscular Re-Education completed Ish Rhodes MECHANICAL ASSEMBLER [address], [place], [address], [facility] 01/07/2025 13:39:57 12/30/19 29425 Therapeutic Exercise (1:1) completed Ish Rhodes MECHANICAL ASSEMBLER [address], [place], [address], [facility] 12/29/2024 14:14:23 12/30/19 39161: Neuromuscular Re-Education completed Ish Rhodes MECHANICAL ASSEMBLER [address], [place], [address], [facility] 12/29/2024 14:14:19 12/23/19 59179 Therapeutic Exercise (1:1) completed Bhavna Reece, PT [address], [place], [address], [facility] 12/22/2024 15:03:25 12/23/19 84191: Manual therapy completed Bhavna Reece, PT [address], [place], [address], [facility] 12/22/2024 15:03:31 12/11/19 01744 Therapeutic Exercise (1:1) cancelled Bhavna Reece, PT [address], [place], [address], [facility] 12/08/2024 13:45:52 11/27/19 25 38314 Therapeutic Exercise (1:1) completed Bhavna Reece, PT [address], [place], [address], [facility] 2024 11:55:34 11/27/19 00944: Low complexity PT Eval completed Bhavna Reece, PT [address], [place], [address], [facility] 2024 08:35:24 11/27/19 25 G8417 BMI Above Upper Parameters, F/U Documented completed Bhavna Reece, PT [address], [place], [address], [facility] 2024 08:35:20 11/27/19 25 G8427 Current Medication Documented completed Bhavna Reece, PT [address], [place], [address], [facility] 2024 08:35:17 Imaging Results None recorded. Procedure Notes None recorded. Medical Equipment None Reported. Allergies No known drug allergies Medications Name Sig Start Date Stop Date Status Note LastModified by Organization Details LastModified Time prednisone 10 mg tablet TAKE 3 TABLETS BY MOUTH EVERY DAY FOR 3 DAYS, THEN 2 TABLETS FOR 3 DAYS, THEN 1 TABLET FOR 3 DAYS 10/22 completed Not Available Not Available Not Available hydrocodone 5 mg-acetamin ophen 325 mg tablet TAKE ONE TABLET BY MOUTH EVERY 4 TO 6 HOURS NEEDED FOR PAIN 10/22 completed Not Available Not Available Not Available IBU 600 mg tablet TAKE 1 TABLET BY MOUTH TWICE A DAY NEEDED FOR DISCOMFOR T. TAKE WITH FOOD 10/22 completed Not Available Not Available Not Available baclofen 10 mg tablet TAKE ONE TABLET BY MOUTH EVERY DAY FOR 14 DAYS active Not Available Not Available No t Available pantoprazol e 40 mg tablet,dangelo yed release TAKE ONE TABLET BY MOUTH EVERY DAY 30 MINUTES BEFORE BREAKFAST active Not Available Not Available No t Available simvastatin 20 mg tablet TAKE ONE TABLET BY MOUTH EVERY DAY active Not Available Not Available No t Available gabapentin 300 mg capsule TAKE ONE CAPSULE BY MOUTH TWICE A DAY NEEDED FOR MODERATE PAIN active Not Available Not Available No t Available lisinopril 5 mg tablet TAKE ONE TABLET BY MOUTH EVERY DAY active Not Available Not Available No t Available polyethylen e glycol 3350 17 gram/dose oral powder STIR ONE POWDER CAP 17 GRAMS) AND DISSOLVE IN ANY 4 TO 8 OUNCES OF BEVERAGE. TAKE NEEDED FOR CONSTIPAT ION. 10/22 completed Not Available Not Available Not Available albuterol sulfate HFA 90 mcg/actuati on aerosol inhaler INHALE ONE PUFF BY MOUTH FOUR TIMES A DAY active Not Available Not Available No t Available buprenorphi ne 8 mg-naloxone [address] ONE AND ONE-HALF FILMS UNDER THE TONGUE EVERY DAY active Not Available Not Available No t Available Vitals Date Recorded Body height Body mass index (BMI) Body weight Provider Name and Address Organization Details Last Updated DateTime 01/28/2025 157.48 cm 30.5 kg/m2 45821.93 g Sheryl read [place] - [facility] 01/28/2025 09:11:17 Social History None recorded. Functional Status None recorded. Mental Status None recorded. Family History Nothing Reported. Medical History No medical history recorded. Gynecological HistoryNo gynecological history recorded. Obstetrics History GPAL:G 0 P 0 0 0 0 Past Encounters Encounter ID Performer Location Encounter Start Date Encounter Closed Date Diagnosis/Indication Diagnosis SNOMED-CT Code Diagnosis ICD10 Code Diagnosis IMO Codes Diagnosis Note [id number] [facility] [address] [facility] [place] [address] 10/22/2024 08:22:09 11/03/2024 14:07:17 Injury of right ankle 8617377717 [id number] S99.911A [id number] Bhavna Reece, PT [facility] on [address] [place] [address] 2024 08:24:56 2024 10:03:03 Injury of right ankle 9461653481 [id number] S99.911D [id number] Bhavna Reece, PT [facility] [address] [place] [address] 12/22/2024 14:00:50 12/22/2024 15:58:48 Injury of right ankle 4005808700 [id number] S99.911D [id number] Ish Rhodes, MECHANICAL ASSEMBLER [facility] [address] [place] [address] 12/29/2024 13:18:56 12/29/2024 15:25:38 Injury of right ankle 4235404252 [id number] S99.911D [id number] Ish Rhodes, MECHANICAL ASSEMBLER [facility] [address] [place] [address] 01/07/2025 13:01:53 01/07/2025 14:16:24 Injury of right ankle 3254994115 [id number] S99.911D [id number] Bhavna Jenningsd, PT [facility] [address] [place] [address] 01/14/2025 11:24:10 01/14/2025 13:33:18 Injury of right ankle 9909993919 [id number] S99.911D [id number] [facility] [address] [place] [address] 01/28/2025 08:47:58 02/05/2025 11:42:04 Ankle pain 712368783 M25.571 [id number] Health Concerns Section Related Observation LastModified by Organization Detai ls LastModified Time None Recorded Concern Status LastModified by Organization Details LastModified Time None Recorded Advance Directives Directive None Recorded Payers Insurance Date Sequence Insurance Name Policy Number Policy Slade Covered Member ID Slade Member ID Guarantor Name 01/26/2025 1 [place]ICARE [place]: [employer] Kelly Zuniga [id number] Debby Zuniga 01/26/2025 2 [place]: [facility] Debby Zuniga [id number] Debby Zuniga Notes Date Note Type Note Provider Name and Address Organization Details Recorded Time 12/22/2024 text/html Pt frustrated that she was taken 3 mins late to session. Bhavna Reece, PT [address], [place], [address], [facility] 12/22/2024 15:11:08 12/29/2024 text/html Pt. reports no significant changes since last visit, has moderate difficulty with pain management when driving. Ish Rhodes, MECHANICAL ASSEMBLER [address], [place], [address], [facility] 12/29/2024 14:15:59 01/07/2025 text/html Pt. continues to report ankle pain when driving. Ish Rhodes, MECHANICAL ASSEMBLER [address], [place], [address], [facility] 01/07/2025 13:53:17 01/14/2025 text/html Ankle pain when driving.No improvement since beginning therapy at all.Soreness in calf and ankle after walking on beach. Bhavna Reece, PT [address], [place], [address], [facility] 01/14/2025 12:43:31 01/28/2025 text/html Patient seen by myself under direct supervision by Dr. Ash is available but did not see the patient. HPI: Patient presents for follow-up today regarding right ankle pain. She was previously seen by Dr. Rubio following the injury. She reports the pain is still there. She feels physical therapy made symptoms worse. Her pain is localized over the lateral ankle. She is hoping for the next step today. Referred to me by her primary care. She reports she sustained a significant right ankle sp[place] in December 2023. Describes it as an inversion injury. She had x-rays taken at that time and was diagnosed with a lateral malleolus avulsion fracture. She was treated conservatively. She does not feel she has made a full recovery. Reports pain in the lateral ankle with weightbearing activity. Worse at the end of the day which she rates as an 8 out of 10. Currently the pain is a 3 out of 10. Denies instability events. Also describes pain in the plantar heel which is more recent. She has tried activity modification and bracing. Previously completed physical therapy. Here today to discuss treatment options.Lives in [place], works part-time for the [employer], on disability after left total knee replacement, history of opioid dependence on Suboxone, former smokerPast family history, medical history, social history, allergies, and review of systems has been reviewed, updated and are located in the patient's chart.PHYSICAL EXAM:Constitutional: Healthy appearing individual in no acute distressPsychiatric: Alert and orientedRespiratory: Unlabored breathingLymphatic: No lymphadenopathy in the foot/ankleSkin: No open woundsCV: Palpable pedal pulsesNeuro: Light touch grossly intactMSK:Focused examination of the right foot and ankle-On standing exam foot ankle alignment is appropriate. Gait is not antalgic. On seated exam skin is intact. Patient has mild soft tissue swelling about the lateral malleolus. Tender at the tip of the lateral malleolus. Tender at the plantar fascia origin. Achilles tendon is intact by palpation. Nontender over the Achilles. Not significantly tender over the lateral ligaments of the peroneal tendons. Nontender over the medial malleolus or deltoid. No pain with syndesmotic squeeze. Supple ankle and foot range of motion. 5 out of 5 peroneal strength. Mildly positive Silfverskiold test.Motor exam- intact dorsiflexion/plantarf lexion, inversion/eversionSen kim exam- reports sensation intact to light touch SP/DP/S/S/T distributionsPalpable DP/PT pulses, foot warm and well perfused, appropriate capillary refillCalf is soft, supple, non-tenderIMAGING:X-R ays previously ordered, obtained, and reviewed at [facility]: 3 weightbearing x-rays of right ankle, to the right foot, AP comparison to the foot and ankle reveal intact symmetric mortise. Appropriate syndesmotic alignment. Appropriate lateral alignment. Small avulsion fracture at the tip of the lateral malleolus visualized. No acute bony abnormality.Patient brought a disc with her of prior x-rays from [facility] from December 2023 which were reviewed. They again show a small lateral malleolus avulsion fracture.ASSESSMENT: History of right ankle sprain, lateral malleolus avulsion fracture with continued pain, plantar fasciitis, gastrocnemius contracturePLAN: Recommend next step which is MRI to further evaluate her ankle and soft tissues. She will follow-up once complete to review the findings. She will continue home exercise program and discontinue outpatient therapy which has made pain worse. She will continue the ankle compression sleeve as well. Latoya Watts PA-C [address] [facility] [address], [place], [address], [facility] - [facility] 01/28/2025 10:22:31 OBGyn Episode No OBEpisode recorded.
[2025-03-04 16:25] LABS: Bacterial Vaginosis PCR NEGATIVE (Negative); Candida Group PCR NOT DETECTED (Not Detect); Candida glab krusei PCR NOT DETECTED (Not Detect); Trichomonas vaginalis PCR NOT DETECTED (Not Detect)
[2025-03-04 16:54] LABS: CT PCR NOT DETECTED (Not Detect.); NG PCR NOT DETECTED (Not Detect.)
== END 2025-03-04 09:28 | disposition home or self-care (01) ==
LOC: HO.LAB 09:27
PROVIDERS: PCP Physician Assistant; Visit Provider Advanced Practice Midwife
DX: Z01.411 Encounter for gynecological examination (general) (routine) with abnormal findings (principal); N95.0 Postmenopausal bleeding; R31.29 Other microscopic hematuria; Z11.51 Encounter for screening for human papillomavirus (HPV); R10.20 Pelvic and perineal pain unspecified side; Z20.2 Contact with and (suspected) exposure to infections with a predominantly sexual mode of transmission; Z98.51 Tubal ligation status
CPT/HCPCS: 81003; 81515; 87086; 87491; 87591; 87626; 88175; 99202; G0101; Q0091

== ENCOUNTER 2025-03-04 09:27 | Outpatient (AMB) | payer MEDICARE, SELFPAY ==
--- NOTE | 2025-03-04 09:27 | A.OFFVIS_ITS ---
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 She had spotting in November and December x1d when wiping. Urine dip 1+ blood and trace leukocytes today. Last Pap over 30 years ago. Currently not sexually active x 1-2 years. Denies any vaginal dryness or irritation. Attempting to eat a healthy diet with calcium and vitamin D and stays active with exercise. Last pap smear; >30yrs ago, negative. Last mammogram; 2023. ColoGard is UTD. Denies any family history of breast, ovarian or colon cancer. 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 Former smoker GERD (gastroesophageal reflux disease) Opiate dependence Dysphagia Elevated cholesterol HTN (hypertension) Failed total knee arthroplasty Surgical History Hx of total knee replacement History of esophagogastroduodenoscopy (EGD) Family History Son Kidney malignancy Social History Housing: House Alcohol intake: current Alcohol intake frequency: a few times a month Patient Tobacco Use Status: Former Tobacco user e-Cigarette/Vaping Use: Never Used Second Hand Smoke Exposure: Yes Substance Use Type: Marijuana service: No Current occupational status: employed 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 Cognitive needs: No Hearing needs: No Vision needs: No Female Reproductive History Menstrual Total pregnancies: 5 Full term: 4 Number of Living Children: 3 Ectopics: 1 Date of Mammogram: 04/30/24 (birad 2) Review of Systems Const All systems reviewed & are unremarkable except as noted in HPI and below Reports as per HPI Eyes Reports no additional complaints ENT Reports no additional complaints Card Reports no additional complaints Resp Reports no additional complaints GI Reports as per HPI and Reports no additional complaints Reports as per HPI Musc Reports no additional complaints Skin/Breast Reports as per HPI Neuro Reports no additional complaints Psych Reports no additional complaints Endo Reports no additional complaints Néstor/Lymph Reports no additional complaints Aller/Immun Reports no additional complaints Physical Exam Vital Signs: Last Vital Signs BP 134/76 03/04/25 09:30 BMI result Body Mass Index 30.4 Const General: cooperative, healthy appearing, no acute distress, well developed and alert Orientation/consciousness: patient oriented x3 HEENT Head: Yes normal to inspection Eyes General: appearance normal, both eyes and all related structures Neck Neck: Yes normal visual inspection Thyroid: Thyroid normal Chest Chest palpation & inspection: normal inspection of the chest and other (no puckering, dimpling, peau de orange, retraction, discharge, masses) Breast/axilla inspection: normal inspection of the breasts Breast/axilla palpation: normal palpation of the breasts Resp Effort & Inspection: normal respiratory effort GI Inspection: Yes normal to inspection Palpation (GI): Soft to palpation Rectal Exam - Female: deferred General: Yes bladder normal to palpation External Female Exam: normal external appearance and normal appearance of the urethra Speculum Exam - Vagina: normal appearance of the vagina, normal palpation and normal vaginal discharge Speculum Exam - Cervix: normal appearance of the cervix and normal palpation Bimanual exam- vagina & uterus: normal bimanual exam, normal palpation, uterine size normal, bladder normal to palpation, normal palpation and non-tender Bimanual Exam- Adnexa, other: no masses Skin General skin exam: no rashes or lesions noted Rashes: no rashes Neuro General: patient oriented x3 Cognition (Neuro): normal cognition Extrem General: Yes normal to inspection Psych Attitude: cooperative Thought process: Normal thought process present Results AMB Urinalysis, Automated UA Leukoctes 0.5 Dulce/uL Last Edit by KIRSTIE Clayton on 03/04/25 09:4 8 UA Nitrite Negative Last Edit by KIRSTIE Clayton on 03/04/25 09:48 UA Urobilinogen 0.5 mg/dL Last Edit by Nini KIRSTIE Braga on 03/04/25 09 :48 UA Protein 0.5 mg/dL Last Edit by Nini KIRSTIE Braga on 03/04/25 09:48 UA pH 6.0 Last Edit by Nini Calhoun Lucas on 03/04/25 09:48 UA Blood 1 Alexey/uL Last Edit by Nini Toya Calhoun Lucas on 03/04/25 09:48 UA Specific [place] 1.015 Last Edit by Nini Toya Calhoun Lucas on 03/04/25 09:48 UA Ketone Negative Last Edit by Nini KIRSTIE Braga on 03/04/25 09:48 UA Bilirubin 0 mg/dL Last Edit by Nini Toya Calhoun Lucas on 03/04/25 09:48 UA Glucose 0 mg/dL Last Edit by Nini Toya Calhoun Lucas on 03/04/25 09:48 Results Reviewed Results Reviewed: [place] [id number] Ultrasound Report Signed Patient: Debby Zuniga MR#: [id number] : 1960 Acct:[id number] Age/Sex: 64 / F ADM Date: 01/21/25 Loc: .[place] Attending Dr: Dilan Lopez PA-C Ordering Physician: Dilna Lopez PA-C Date of Service: 01/21/25 Procedure(s): US pelvic and transvaginal Accession Number(s): [id number] cc: Dilan Lopez PA-C~ Reason for Exam: N95.0 - Postmenopausal bleeding EXAMINATION: US PELVIS CLINICAL INFORMATION: Postmenopausal bleeding. History of tubal ligation and probable oophorectomy. COMPARISON: None available. TECHNIQUE: Ultrasound of the pelvis is performed using both transabdominal and transvaginal transducers along with Doppler. Transvaginal imaging is performed due to inadequate visualization transabdominally. FINDINGS: Uterus: The uterus is anteverted and measures 4.4 x 3.1 x 3.7 cm. The cervix is normal in appearance with small nabothian cysts. The double wall endometrial thickness is 2 mm. It is uniform. The uterus is smooth in contour and has mildly heterogeneous myometrial echogenicity. No visible fibroid. Adnexa: Neither ovary is visualized. There is no pelvic ascites or fluid collection. There are no adnexal masses. US/US pelvic and transvaginal IMPRESSION: 1. Neither ovary could be visualized. There are no adnexal masses.. No free pelvic fluid. 2. Normal-appearing senescent uterus. Endometrium is 2 mm and uniform. Electronically signed by: Miquel Mccarthy MD 01/21/2025 01:58 PM EDT RP Dictated By: Miquel Mccarthy MD Signed By: <Electronically signed by Miquel Mccarthy MD in OV> 01/21/25 1358 DD/ 1310 TD/TT: 01/21/25 1323 Associate Automation Engineer: Assessment & Plan Assessment & Plan (1) Postmenopausal bleeding: Code(s): N95.0 - Postmenopausal bleeding Category: Medical Plan: Discussed: Ultrasound findings- IMPRESSION: 1. Neither ovary could be visualized. There are no adnexal masses.. No free pelvic fluid. 2. Normal-appearing senescent uterus. Endometrium is 2 mm and uniform. Recommended endometrial biopsy procedure to rule out atypia, hyperplasia, precancer or cancer from the endometrial area. Preprocedural planning reviewed advised to have food and fluids prior to taking 600 mg of ibuprofen 1 hour before her appointment time. The patient expressed understanding and agreement with the plan of care. All of her questions and concerns were addressed to the best of my ability. Total time I personally spent on visit and management today: ?20 minutes. Time spent included review of pertinent office notes in the electronic health record; review of laboratory and imaging results; review of personal family medical history; performing physical exam; discussing diagnosis and plan of care with the patient; documenting the encounter in the EMR. (2) Encounter for well woman exam with routine gynecological exam: Code(s): Z01.419 - Encounter for gynecological examination (general) (routine) without abnormal findings Category: Medical (3) Microscopic hematuria: Code(s): R31.29 - Other microscopic hematuria Plan: Urine sent for culture, await results for final plan of care. The patient expressed understanding and agreement with the plan of care. All of her ques tions and concerns were addressed to the best of my ability. Plan Discussed: Current recommendations for pap smears per ASCCP guidelines. Pap, GC chlamydia and BV panel, await results for final plan of care Breast awareness, periodic self breast exams and yearly mammogram. Maintain a healthy lifestyle, well balanced diet including Calcium 1,200 mg and Vitamin D 600 IU daily, and routine exercise. Contact the office with any postmenopausal bleeding. Patient verbalizes understanding and agrees to the plan of care. She was given opportunity to ask questions and all questions were answered to the best of my ability. 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 This note is constructed using voice recognition software. While every effort has been made to ensure accuracy, skates operator errors may have been included. Orders: Orders Urine Culture Today R31.29 - Other microscopic hematuria HPV High risk Today Z01.419 - Encounter for gynecological examination (general) (routine) without abnormal findings Pap Smear Today Z01.419 - Encounter for gynecological examination (general) (routine) without abnormal findings CT NG by PCR Vag/Cerv Today R10.20 - Pelvic and perineal pain unspecified side AMB Urinalysis Automated Today R31.29 - Other microscopic hematuria Bacterial Vaginosis Panel Today R10.20 - Pelvic and perineal pain unspecified side Coding Level of Care Code New Pt Level 2 (02140) New Pt Prev Care >65yr (10549) Diagnoses Postmenopausal bleeding N95.0 Encounter for well woman exam with routine gynecological exam Z01.419 Microscopic hematuria R31.29
[2025-03-04 09:30] VITALS: BP 134/76; BMI 30.4
== END 2025-03-04 10:07 | disposition home or self-care (01) ==
LOC: HO.HWS 09:27
PROVIDERS: PCP Physician Assistant; Visit Provider Advanced Practice Midwife
DX: Z01.419 Encounter for gynecological examination (general) (routine) without abnormal findings (principal); N95.0 Postmenopausal bleeding; R31.29 Other microscopic hematuria
CPT/HCPCS: 99202; G0101; Q0091

== ENCOUNTER 2025-03-04 10:00 | Outpatient (REF) | payer MEDICARE, SELFPAY | END 2025-03-04 10:01 | disposition home or self-care (01) | LOC: HO.LNP 10:00 | PROVIDERS: Visit Provider Advanced Practice Midwife | DX: Z13.89 Encounter for screening for other disorder (principal) | CPT/HCPCS: 87626; 88175 ==

== ENCOUNTER 2025-03-18 08:30 | Outpatient (AMB) | payer MEDICARE, SELFPAY ==
--- NOTE | 2025-03-18 08:36 | A.OFFVIS_ITS ---
Vital Signs 03/18/25 08:37 Height 5 ft 2 in Weight 166 lb BMI 30.4 BP 122/78 Intake Visit Reasons: EMB/urine dip Certified Solid Waste Facility Operator: Certified Solid Waste Facility Operator Present (Karie) Allergies No Known Allergies (No Known Allergies*) Allergy (Verified 03/18/25 08:37) Is last menstrual period known: Yes HPI Comments Details: Patient is here today for an endometrial biopsy due to postmenopausal bleeding. History of hematuria todays repeat-1+. Pap 02/2025, negative. She feels very anxious over the procedure today, unable to eat and experienced diarrhea for the last 2 days. She does not believe she can go through with the procedure without anesthesia. [facility] Medical History Microscopic hematuria De Quervain's tenosynovitis, right Postoperative stiffness of total knee replacement Former smoker GERD (gastroesophageal reflux disease) Opiate dependence Dysphagia Elevated cholesterol HTN (hypertension) Failed total knee arthroplasty Surgical History Hx of total knee replacement History of esophagogastroduodenoscopy (EGD) Family History Son Kidney malignancy Son Renal carcinoma Social History Housing: House Alcohol intake: current Alcohol intake frequency: a few times a month Patient Tobacco Use Status: Former Tobacco user e-Cigarette/Vaping Use: Never Used Second Hand Smoke Exposure: Yes Substance Use Type: Marijuana service: No Current occupational status: employed 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 Cognitive needs: No Hearing needs: No Vision needs: No Review of Systems Const All systems reviewed & are unremarkable except as noted in HPI and below Endo Reports no additional complaints Physical Exam Vital Signs: Last Vital Signs BP 122/78 03/18/25 08:37 BMI result Body Mass Index 30.4 Const General: cooperative, healthy appearing and no acute distress Psych Appearance: well kempt Attitude: cooperative Thought process: Normal thought process present Results AMB Urinalysis, Automated UA Leukoctes 0 Dulce/uL Last Edit by KIRSTIE Clayton on 03/18/25 08:53 UA Nitrite Negative Last Edit by KIRSTIE Clayton on 03/18/25 08:53 UA Urobilinogen 0 mg/dL Last Edit by Nini Calhoun Lucas on 03/18/25 08:5 3 UA Protein 0.5 mg/dL Last Edit by Nini Calhoun Lucas on 03/18/25 08:53 UA pH 6.0 Last Edit by Nini Calhoun [facility] on 03/18/25 08:53 UA Blood 1 Alexey/uL Last Edit by Nini Calhoun [facility] on 03/18/25 08:53 UA Specific Keene 1.015 Last Edit by iNni Calhoun [facility] on 03/18/25 08:53 UA Ketone Negative Last Edit by Nini Calhoun Lucas on 03/18/25 08:53 UA Bilirubin 0 mg/dL Last Edit by Nini Calhoun [facility] on 03/18/25 08:53 UA Glucose 0 mg/dL Last Edit by Nini Calhoun [facility] on 03/18/25 08:53 Results Reviewed Results Reviewed: Laboratory Last Values Urine pH (Auto) 6.0 03/18/25 08:46 Specific Keene (Auto) 1.015 03/18/25 08:46 Urine Protein (Auto) 0.5 mg/dL 03/18/25 08:46 Glucose (UA)(Auto) 0 mg/dL 03/18/25 08:46 Urine Ketones (Auto) Negative 03/18/25 08:46 Urine Blood (Auto) 1 Alexey/uL 03/18/25 08:46 Urine Nitrite (Auto) Negative 03/18/25 08:46 Urine Bilirubin (Auto) 0 mg/dL 03/18/25 08:46 Urine Urobilinogen (Auto) 0 mg/dL 03/18/25 08:46 Leukocyte Esterase (Auto) 0 Dulce/uL 03/18/25 08:[address] [address] Ultrasound Report Signed Patient: Debby Zuniga MR#: [id number] : 1960 Acct:[id number] Age/Sex: 64 / F ADM Date: 01/21/25 Loc: HO.US Attending Dr: Dilan Lopez PA-C Ordering Physician: Dilan Lopez PA-C Date of Service: 01/21/25 Procedure(s): US pelvic and transvaginal Accession Number(s): [id number] cc: Dilan Lopez PA-C~ Reason for Exam: N95.0 - Postmenopausal bleeding EXAMINATION: US PELVIS CLINICAL INFORMATION: Postmenopausal bleeding. History of tubal ligation and probable oophorectomy. COMPARISON: None available. TECHNIQUE: Ultrasound of the pelvis is performed using both transabdominal and transvaginal transducers along with Doppler. Transvaginal imaging is performed due to inadequate visualization transabdominally. FINDINGS: Uterus: The uterus is anteverted and measures 4.4 x 3.1 x 3.7 cm. The cervix is normal in appearance with small nabothian cysts. The double wall endometrial thickness is 2 mm. It is uniform. The uterus is smooth in contour and has mildly heterogeneous myometrial echogenicity. No visible fibroid. Adnexa: Neither ovary is visualized. There is no pelvic ascites or fluid collection. There are no adnexal masses. US/US pelvic and transvaginal IMPRESSION: 1. Neither ovary could be visualized. There are no adnexal masses.. No free pelvic fluid. 2. Normal-appearing senescent uterus. Endometrium is 2 mm and uniform. Electronically signed by: Miquel Mccarthy MD 01/21/2025 01:58 PM EDT Dictated By: Miquel Mccarthy MD Signed By: <Electronically signed by Miquel Mccarthy MD in OV> 01/21/25 1358 DD/ 1310 TD/TT: 01/21/25 1323 Delivery Analyst: Assessment & Plan Assessment & Plan (1) Postmenopausal bleeding: Code(s): N95.0 - Postmenopausal bleeding Category: Medical Plan: Counseled regarding options for hysteroscopy, to be scheduled with Dr. Troncoso for consult. Anticipatory guidance reviewed with the patient regarding hysteroscopy procedure, anesthesia, and NPO after midnight in day stay surgery. The patient expressed understanding and agreement with the plan of care. All of her ques tions and concerns were addressed to the best of my ability. (2) Microscopic hematuria: Code(s): R31.29 - Other microscopic hematuria Category: Medical Plan: Recheck urine today w/ microscopic hematuria 1+. Discussed referral to Urology for further evaluation. The patient expressed understanding and agreement with the plan of care. All of her questions and concerns were addressed to the best of my ability. Plan This note is constructed using voice recognition software. While every effort has been made to ensure accuracy, stock repairer errors may have been included. Orders: Orders AMB Urinalysis Automated Today R31.29 - Other microscopic hematuria Referrals Urology Referral R31.29 - Other microscopic hematuria Coding Level of Care Code Est Pt Level 3 (26990) Diagnoses Postmenopausal bleeding N95.0 Microscopic hematuria R31.29
[2025-03-18 08:37] VITALS: BP 122/78; BMI 30.4
--- OUTSIDE RECORDS SUMMARY | 2025-03-18 09:12 | XMS_ITS | Clinical Summary ---
Author Organization [facility] Address [address] [phone] Phone Care Team Providers Care Food Technologist Name Role Phone Ny Etienne MD Primary [...] topic Medical Devices Not on file Insurance [employer] TOGETHER i[employer] CARE10-20 Media TOGETHER [place]ARE[employer] [place] Care Teams Food Technologist Relationship Specialty Start Date End Date Ny Etienne MD [address] [place] [address] [address] [place] [address] PCP - General 05/03/17 Additional Source Comments The information contained in this document represents components of the legal health record. It is not the complete legal health record.[facility]
--- OUTSIDE RECORDS SUMMARY | 2025-03-18 09:12 | XMS_ITS | Data Portability ---
Author Organization [facility], [facility] Address [address] [place] [address] Care Team Providers Care Inverform Machine Operator Name Role Phone SANYA ONEAL Referring Provider SANYA ONEAL Primary Care Provider [phone] Assessment Encounter Date Assessment Date Assessment LastModified [...] and modalities prn gait training transfer training [email or web address] Not available 12/29/2024 14:15:34 01/07/2025 01/07/2025 ASSESSMENT: Pt. was unable to complete SLS on level ground dt experiencing moderate discomfort. However, able to tolerate a modification with rebound er exercises with mild discomfort experienced. PLAN: Frequency: 2x per week, Duration: 6 weeks PROM / AAROM / AROM LE strengthening balance / proprioception manual therapy and modalities prn gait training transfer training [email or web address] Not available 01/07/2025 13:52:57 01/14/2025 01/14/2025 ASSESSMENT: [...] Modified Time Details Appointments RECHECK 15 2024 01:30P Toya Watts PA-C Not available Not available Not available Lab None recorded. Referral None recorded. Procedures None recorded. Surgeries None recorded. Imaging MRI, ankle, w/o contrast - EVAL PERONEAL TENDON 2024 025 [facility] ([facility]), [address] [place] [address], [address], 02/05/2025 09:15:58 Medication Orders None recorded. Patient TargetsNo targets recorded. Patient InstructionsNo instructions recorded. Reason for Referral None Reported. Results Created Date Observation Date Name Description Value Unit Range Abnormal Flag Note LastModifiedBy Organization Detail LastModifiedTime 02/05/2002/04/2025 MRI, ankle , w/o contr ast [facility]- [facility] Access ion Number : [id number] Dorinajaron real Name: Nayely Gan l Record Number : [id number] Date of : 1960 Date of Exam: 2024 Referr ing Physic jarred: [facility] [address] [place] [address] , [address] [place] [address] Exam: MR Ankle (C-) CPT 30122 - Right Room Descri ption: [facility] [...] eofibu lar ligame nts Anteri or and inspector air carrier ior tibiof ibular ligame nts are intact . Health Information Technologist ior talofi bular ligame nt is intact [...] I agree with this report . WSN: [id number] Orderi Physic jarred: Latoya Ramey [facility] onical ly Signed By: Laura Sotelo MD [email or web address] [facility] ([facility]) [address] [facility] [place], [address], 02/05/2025 09:16:09 Result Notes Documentation Provider Name and Address Organization Details Recorded Time Mri, Ankle, W/o Contrast : [facility] Accession Number: [id number] Patient Name: Kelly Zuniga Date of : 1960 Date of Exam: 02-04-2025 Referring Physician: Latoya Watts [facility] ([facility]) [address] [facility], [address] [place] [address] Exam: MR Ankle (C-) CPT 57266 - Right Room Description: [facility] 3.0T MRI Joint Ext Lower W/O [...] and I agree with this report. WSN: [id number] Ordering Physician: Latoya Watts Electronically Signed By: Cesar chahal [place] - [facility] 02/05/2025 09:16:09 Procedures Surgical History Date Name Laterality Status Provider Name and Address Organization Details Recorded Time 01/29/20 25 42772 Therapeutic Exercise (1:1) cancelled Bhavna Reece PT [address] [facility] [address] [facility], [place], [address], [facility] - [facility] 01/26/2025 13:29:15 01/29/20 25 68136: Manual therapy cancelled Bhavna Reece PT [address] [facility] [address], [place], [address], [facility] 01/26/2025 13:29:15 01/15/20 08526 Therapeutic Exercise (1:1) completed Bhavna Reece, PT [address], [place], [address], [facility] 01/14/2025 12:41:15 01/15/20 09123: Manual therapy completed Bhavna Reece, PT [address], [place], [address], [facility] 01/14/2025 12:41:20 01/08/20 45318: Neuromuscular Re-Education completed Ish Rhodes CORPORATE LOGISTICS MANAGER [address], [place], [address], [facility] 01/07/2025 13:39:57 12/30/19 07196 Therapeutic Exercise (1:1) completed Ish Rhodes CORPORATE LOGISTICS MANAGER [address], [place], [address], [facility] 12/29/2024 14:14:23 12/30/19 80619: Neuromuscular Re-Education completed Ish Rhodes CORPORATE LOGISTICS MANAGER [address], [place], [address], [facility] 12/29/2024 14:14:19 12/23/19 70484 Therapeutic Exercise (1:1) completed Bhavna Reece, PT [address], [place], [address], [facility] 12/22/2024 15:03:25 12/23/19 40614: Manual therapy completed Bhavna Reece, PT [address], [place], [address], [facility] 12/22/2024 15:03:31 12/11/19 49248 Therapeutic Exercise (1:1) cancelled Bhavna Reece, PT [address], [place], [address], [facility] 12/08/2024 13:45:52 11/27/19 25 18687 Therapeutic Exercise (1:1) completed Bhavna Reece, PT [address], [place], [address], [facility] 2024 11:55:34 11/27/19 48256: Low complexity PT Eval completed Bhavna Reece, PT [address], [place], [address], [facility] 2024 08:35:24 11/27/19 25 G8417 BMI Above Upper Parameters, F/U Documented completed Bhavna Reece, PT [address], [place], [address], [facility] 2024 08:35:20 11/27/19 25 G8427 Current Medication Documented completed Bhavna Reece, PT [address], [place], [address], [facility] 2024 08:35:17 Imaging Results None recorded. Procedure [...] e glycol 3350 17 gram/dose oral powder DISSOLVE AND STIR IN 17 GRAMS OF POWDER INTO 4 TO 8 OUNCES OF BEVERAGE ONCE A DAY NEEDED FOR CONSTIPAT ION active Not Available Not Available No t Available albuterol sulfate HFA 90 mcg/actuati on aerosol inhaler INHALE ONE PUFF BY MOUTH FOUR TIMES A DAY active Not Available Not Available No t Available buprenorphi ne 8 mg-naloxone [address] 1.5 PIECES OF FILM UNDER THE TONGUE ONCE A DAY active Not Available Not Available No t Available Vitals Date Recorded Body height Body mass index (BMI) Body weight Provider Name and Address Organization Details Last Updated DateTime 01/28/2025 157.48 cm 30.5 kg/m2 56988.93 g Sheryl read [place] - [facility] 01/28/2025 09:11:17 Social History None recorded. Functional Status None recorded. Mental Status None recorded. Family History Nothing Reported. Medical History No medical history recorded. Gynecological HistoryNo gynecological history recorded. Obstetrics History GPAL:G 0 P 0 0 0 0 Past Encounters Encounter ID Performer Location Encounter Start Date Encounter Closed Date Diagnosis/Indication Diagnosis SNOMED-CT Code Diagnosis ICD10 Code Diagnosis IMO Codes Diagnosis Note [id number] MD [facility] 1st Floor [address] [facility] [address] 10/22/2024 08:22:09 11/03/2024 14:07:17 Injury of right ankle 8374776140 7005232 S99.911A 8745150 [id number] Bhavna Jenningsd, PT [facility] [address] [place] [address] 2024 08:24:56 2024 10:03:03 Injury of right ankle 4074963749 2353430 S99.911D [id number] Bhavna Reece, PT [facility] [address] [place] [address] 12/22/2024 14:00:50 12/22/2024 15:58:48 Injury of right ankle 4092225241 0422805 S99.911D [id number] Ish Rhodes, CORPORATE LOGISTICS MANAGER [facility] [address] [place] [address] 12/29/2024 13:18:56 12/29/2024 15:25:38 Injury of right ankle 9569363002 7584749 S99.911D 970599 [id number] Ish Rhodes, CORPORATE LOGISTICS MANAGER [facility] [address] [place] [address] 01/07/2025 13:01:53 01/07/2025 14:16:24 Injury of right ankle 7317991767 1265939 S99.911D [id number] Bhavna Reece, PT [facility] [address] [place] [address] 01/14/2025 11:24:10 01/14/2025 13:33:18 Injury of right ankle 7944351637 2310533 S99.911D 709563 [id number] [facility] 3rd floor [address] [place] [address] 01/28/2025 08:47:58 02/05/2025 11:42:04 Ankle pain 160204177 M25.571 [id number] Health Concerns Section Related Observation LastModified by Organization Detai ls LastModified Time None Recorded Concern Status LastModified by Organization Details LastModified Time None Recorded Advance Directives Directive None Recorded Payers Insurance Date Sequence Insurance Name Policy Number Policy Slade Covered Member ID Slade Member ID Guarantor Name 03/05/2025 1 [place] [employer] Kelly Zuniga [id number] Debby Zuniga 01/26/2025 2 [place] Debby Zuniga [id number] Debby Zuniga Notes Date Note Type Note Provider Name and Address Organization Details Recorded Time 12/22/2024 text/html Pt frustrated that she was taken 3 mins late to session. Bhavna Reece, PT [address], [place], [address], [facility] - [facility] 12/22/2024 15:11:08 12/29/2024 text/html Pt. reports no significant changes since last visit, has moderate difficulty with pain management when driving. Ish Carmelo, CORPORATE LOGISTICS MANAGER [address], [place], [address], [facility] 12/29/2024 14:15:59 01/07/2025 text/html Pt. continues to report ankle pain when driving. Ish Carmelo, CORPORATE LOGISTICS MANAGER [address], [place], [address], [facility] 01/07/2025 13:53:17 01/14/2025 text/html Ankle pain when driving.No improvement since beginning therapy at all.Soreness in calf and ankle after walking on beach. Bhavna Reece, PT [address], [place], [address], [facility] 01/14/2025 12:43:31 01/28/2025 text/html Patient seen by [...] a significant right ankle sprain at [place] in December 2023. Describes it as an [...] Here today to discuss treatment options.Lives in [place], works part-time for the [employer], on disability after left total knee replacement, [...] ays previously ordered, obtained, and reviewed at [facility]: 3 weightbearing x-rays of right ankle, to the right foot, AP comparison to the foot and ankle reveal intact symmetric mortise. Appropriate syndesmotic alignment. Appropriate lateral alignment. Small avulsion fracture at the tip of the lateral malleolus visualized. No acute bony abnormality.Patient brought a disc with her of prior x-rays from [facility] from December 2023 which were reviewed. [...] sleeve as well. Latoya Watts PA-C [address] [facility] [address], [place], [address], [facility] - [facility] 01/28/2025 10:22:31 OBGyn Episode No OBEpisode recorded.
== END 2025-03-18 10:21 | disposition home or self-care (01) ==
LOC: HO.HWS 08:30
PROVIDERS: PCP Physician Assistant; Visit Provider Advanced Practice Midwife
DX: N95.0 Postmenopausal bleeding (principal); R31.29 Other microscopic hematuria
CPT/HCPCS: 99213

== ENCOUNTER → 2025-03-18 08:30 | Outpatient (BNVA) | payer MEDICARE, SELFPAY | PROVIDERS: PCP Physician Assistant; Visit Provider Advanced Practice Midwife | DX: N95.0 Postmenopausal bleeding (principal); R31.29 Other microscopic hematuria; Z87.891 Personal history of nicotine dependence | CPT/HCPCS: 81003; 99212 ==

== ENCOUNTER 2025-04-13 08:26 | Outpatient (AMB) | payer MEDICARE, MEDICAID, SELFPAY ==
--- NOTE | 2025-04-13 08:36 | A.OFFPC_ITS ---
Vital Signs 04/13/25 08:38 Height 5 ft 2 in Weight 164 lb BMI 30.0 BP 132/66 Blood Pressure Location Lt brachial Position Sitting Pulse 102 H Pulse Source Pulse Oximeter Temp 96.8 F Temp Source Temporal Artery Scan Pulse Oximetry (%) 97 Oxygen Delivery Method Room Air Intake Visit Reasons: 6 month follow up Intake Note: Patient is here to follow up on Low Back pain, COPD, HTN, HLD. Telescope Operator Required: No Rerecording Mixer: Not Required per policy Accompanied by: Self / Same As Patient Allergies No Known Allergies (No Known Allergies*) Allergy (Verified 04/13/25 08:46) Medication List - Last Reconciled 04/13/25 by Dilan Lopez PA-C albuterol sulfate 90 mcg/actuation (Ventolin HFA) 1 inh inhalation QID 30 days baclofen 10 mg PO DAILY 14 days buprenorphine-naloxone 8-2 mg (Suboxone) 1 film buccal DAILY gabapentin 300 mg PO BID 30 days lisinopril 5 mg PO DAILY pantoprazole 40 mg PO DAILY 90 days polyethylene glycol 3350 (Miralax) 17 grams PO DAILY simvastatin 20 mg PO DAILY 90 days Tobacco use date assessed: 04/13/25 Fall risk assessment: No Falls in past year Last assessed Fall Risk: 04/13/25 Dental Screening Dental Screen Date: 09/30/24 HPI 6 month follow up HPI Details Patient is a 64-year-old female here today for follow-up visit.? Patient has a past medical history significant for hyperlipidemia, LEft knee deformity/ osteoarthritis,? opiate dependence and on Suboxone to a local clinic. Concerns--> has been noted to have microscopic hematuria. She is a former smoker who quit smoking in 2017. She has followed up with telecommunications field technician and was found to have no telecommunications field technician issue. She has a upcoming appointment with Urology for further investigation on her hematuria Avulsion fracture right ankle: Has done physical therapy does feel she is making any improvement. Continues to have pretty significant pain over her lateral malleolus over right ankle . She has followed up with orthopedics whom recommends surgery of the right ankle to clean up the bone fragment. .. Hypertension: Continues on 5 mg lisinopril with good control of her blood pressure. She reports that home blood pressures are 120s 130 systolic. .. Knee osteoarthritis status post replacement: continues to left knee pain swelling and decreased range of motion.? Has seen her orthopedic and was advised to to start physical therapy.? Recommendations also made for possible evaluation by pain management. X-ray knee showing--> Left knee replacement. Question increasing lucency of the superior patella. Small joint effusion.? ?She has had this is an existing condition over the last several years since knee replacement and revisions.? Of note-- > Prev PCP was Dr Pederson.? She has a past history left knee o steoarthritis requiring total knee replacement though was complicated and needed reconstructive surgery.? She was dependent on opiates and now has transition to Suboxone to which she gets from a [facility]. She reports her knee pain has been bit better. Has been using gabapentin 300 daily with decent affect though is interested in increasing her gabapentin dose for better pain relief. We have increased her gabapentin to 300 twice a day. /.. Hyperlipidemia:? Patient was started on low potency? statin therapy and her fasting lipid panel much improved., .. Former smoker; she does report having some shortness of breath with minimal exertion as of late. Denies any chest pain. She does report quitting smoking 2016 though was a smoker for 2025 years. Patient did start a rescue inhaler which has helped her be more physically active [facility] Medical History Microscopic hematuria De Quervain's tenosynovitis, right Postoperative stiffness of total knee replacement Former smoker GERD (gastroesophageal reflux disease) Opiate dependence Dysphagia Elevated cholesterol HTN (hypertension) Failed total knee arthroplasty Surgical History Hx of total knee replacement History of esophagogastroduodenoscopy (EGD) Family History Son Kidney malignancy Son Renal carcinoma Social History Housing: House Alcohol intake: current Alcohol intake frequency: a few times a month Patient Tobacco Use Status: Former Tobacco user e-Cigarette/Vaping Use: Never Used Second Hand Smoke Exposure: Yes Substance Use Type: Marijuana service: No Current occupational status: employed 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 Cognitive needs: No Hearing needs: No Vision needs: No Questionnaire Thrive Questionnaire Date Thrive assessed: 09/30/24 Do you have trouble getting transportation to medical appointments?: No Do you have trouble paying your heating and electricity bill?: No Do you have trouble taking care of your child, family member or friend?: No Do you have trouble with day-to-day activities such as bathing, preparing meals, shopping, managing finances, etc.?: No Are you currently unemployed and looking for a job?: No Are you interested in more education?: No Please select the resources that you would like help with: None THRIVE Score: 0 AUDIT C Alcohol Use Questionnaire (AUDIT-C) 2. How many drinks containing alcohol do you have on a typical day when you are drinking?: 1 or 2 3. How often do you have six or more drinks on one occasion?: Never Total Score: 0 ROHITH-7 AMB Questionnaire ROHITH-7 Date ROHITH - 7 assessed: 09/30/24 Feeling nervous, anxious, or on edge: 0 = Not at all Not being able to stop or control worryin = Not at all Worrying too much about different things: 0 = Not at all Trouble relaxin = Not at all Being so restless that it is hard to sit still: 0 = Not at all Becoming easily annoyed or irritable: 0 = Not at all Feeling afraid as if something awful might happen: 0 = Not at all Total ROHITH-7 score (0-4 normal; 5-9 mild; 10-14 moderate; 15-21 severe): 0 Source: Developed by Drs. Bernardo Moses, Gia Forrester, Jose M Lorenzo and colleagues, with an educational seble from [employer]. ORHITH-7 Assessment Billing ROHITH-7 Assessment Tool: ROHITH-7 Assessment 56527 Review of Systems Const Denies headache(s) Eyes Denies loss of vision ENT Denies vertigo, Denies dizziness, Denies headache(s) and Denies sore throat Card Denies chest pain, Denies leg edema and Denies lightheadedness Resp Denies cough, Denies hemoptysis and Denies wheezing GI Denies abdominal pain, Denies melena, Denies constipation, Denies diarrhea and Denies vomiting Denies urinary frequency, Denies dysuria and Denies urinary urgency Musc Denies arthralgias, Denies joint swelling, Denies numbness and Denies tingling Neuro Denies Abnormal speech present, Denies behavioral changes, Denies vertigo, Denies dizziness, Denies headache(s), Denies loss of vision, Denies memory loss, Denies numbness and Denies tingling Psych Denies anxiety, Denies behavioral changes, Denies depression, Denies memory loss and Denies panic attacks Néstor/Lymph Denies easy bleeding and Denies easy bruising Aller/Immun Denies wheezing Physical exam (Primary Care) Vital Signs: Last Vital Signs Temp 96.8 F 04/13/25 08:38 Pulse 102 H 04/13/25 08:38 BP 132/66 04/13/25 08:38 Pulse Ox 97 04/13/25 08:38 Oxygen Delivery Method Room Air 04/13/25 08:38 BMI result Body Mass Index 30.0 Tobacco/Smoking Status: Tobacco use Status Tobacco use date assessed 04/13/25 04/13/25 08:42 Patient Tobacco Use Status Former Tobacco user 04/13/25 08:42 e-Cigarette/Vaping Use Never Used 04/13/25 08:42 Thrive Assessment: Date of Thrive Assessment Date Thrive assessed 09/30/24 04/13/25 08:42 Const General: healthy appearing, no acute distress, alert and awake Nutritional Appearance: well nourished Orientation/consciousness: oriented to person, oriented to place and oriented to time HENMT Ears: TM's normal bilaterally General nose exam: Normal nasal mucous membranes and turbinates present Eyes Conjunctivae: conjunctivae normal Sclerae: sclerae normal Pupils: Equal, round and reactive pupils present Neck Neck: Yes no lymphadenopathy and Yes no JVD Thyroid: Thyroid normal Carotids: no bruits Resp Effort & Inspection: normal respiratory effort and not tachypneic Auscultation: no crackles, no rales, no rhonchi and no wheezes Cardio Rate: regular rate Rhythm: regular rhythm Heart sounds: no murmurs and normal S1 and S2 GI Palpation (GI): Soft to palpation, nontender, no hepatomegaly and no splenomegaly Auscultation: normal bowel sounds Skin General skin exam: no rashes or lesions noted and dry skin Neuro General: oriented to person, oriented to place and oriented to time Cranial nerves: Yes Equal, round and reactive pupils present Speech: No Abnormal speech present Gait exam (Neuro): Normal gait present Motor exam (neuro): no tremor noted Extrem Right upper extremity: full ROM Left upper extremity: full ROM Right lower extremity: full ROM; no edema Left lower extremity: full ROM; no edema Psych Mental Status: mental status grossly normal Speech and movement: Normal speech and movement present Affect: normal affect Attitude: cooperative Thought process: Normal thought process present Coding Level of Care Code Est Pt Level 4 (21463) Diagnoses Primary hypertension I10 Hypertension type: primary hypertension Impaired glucose metabolism R73.09 Closed avulsion fracture of lateral malleolus of right fibula, sequela S82.61XS Encounter type: sequela Fracture type: closed Mucopurulent chronic bronchitis J41.1 COPD type: chronic bronchitis Chronic bronchitis type: mucopurulent Uncomplicated opioid dependence F11.20 Substance use status: uncomplicated Microscopic hematuria R31.29 Chronic midline low back pain without sciatica M54.50; G89.29 Chronicity: chronic Back pain laterality: midline Sciatica presence: without sciatica Additional Codes ROHITH-7 Assessment Billing - ROHITH-7 Assessment Tool: ROHITH-7 Assessment 12438 ([id number]) Assessment & Plan Assessment & Plan (1) HTN (hypertension): Code(s): I10 - Essential (primary) hypertension Category: Medical Qualifiers: Hypertension type: primary hypertension Qualified Code(s): I10 - Essent ial (primary) hypertension Plan: Patient's blood pressure acceptable today in office. Will continue current dose of lisinopril 5 mg. Goal blood pressures to be below 140/90 (2) Impaired glucose metabolism: Code(s): R73.09 - Other abnormal glucose Category: Medical Plan: Has a history of slightly elevated fasting blood sugar. She will work on lifestyle and dietary modifications to reduce her sugars. (3) Avulsion fracture of lateral malleolus of right fibula: Code(s): S82.61XA - Displaced fracture of lateral malleolus of right fibula, initial encounter for closed fracture Category: Medical Qualifiers: Encounter type: sequela Fracture type: closed Qualified Code(s): S82.61XS - Displaced fracture of lateral malleolus of right fibula, sequela Plan: Both Orthopedics and had gotten MRI which did show bone fragment, She reports Orthopedics are planning on doing surgery. (4) COPD (chronic obstructive pulmonary disease): Code(s): J44.9 - Chronic obstructive pulmonary disease, unspecified Category: Medical Qualifiers: COPD type: chronic bronchitis Chronic bronchitis type: mucopurulent Qualified Code(s): J41.1 - Mucopurulent chronic bronchitis Plan: Patient has a previous smoker and quit in 2017. Patient does have Ventolin available, breathing has been stable as as of lately. (5) Opiate dependence: Code(s): F11.20 - Opioid dependence, uncomplicated Category: Medical Qualifiers: Substance use status: uncomplicated Qualified Code(s): F11.20 - Opioid dependence, uncomplicated Plan: Continues on Suboxone from a local Suboxone clinic. (6) Microscopic hematuria: Code(s): R31.29 - Other microscopic hematuria Category: Medical Plan: Has been noted to have microscopic hematuria most recent urinalysis. She is a former smoker thus she has been referred to Urology for further evaluation. She has followed up with her project estimator in has no telecommunications field technician issue noted. She does report having some pelvic pain particularly when being more physically active. (7) Low back pain: Code(s): M54.50 - Low back pain, unspecified Category: Medical Qualifiers: Chronicity: chronic Back pain laterality: midline Sciatica presence: without sciatica Qualified Code(s): M54.50 - Low back pain, unspecified; G89.29 - Other chronic pain Plan: Patient does have chronic low back pain knee pain and ankle pain. She reports gabapentin has been somewhat effective though would like a higher dose of 600 b.i.d.. Medications: New gabapentin 600 mg PO BID 180 tabs 1RF 90 days G89.29 - Other chronic pain, M54.50 - Low back pain, unspecified Discontinued gabapentin Discontinued Reason: Doctor's Order 300 mg PO BID 30 days 60 caps 3RF pain, moderate M25.669 - Stiffness of unspecified knee, not elsewhere classified, T84.89XA - Other specified complication of internal orthopedic prosthetic devices, implants and grafts, initial encounter, Z96.659 - Presence of unspecified artificial knee joint
[2025-04-13 08:38] VITALS: BP 132/66; PULSE 102; TEMP 36; O2SAT 97
--- OUTSIDE RECORDS SUMMARY | 2025-04-13 08:44 | XMS_ITS | Continuity of Care Document ---
Author Organization [facility] 3[facility] floor Address [address] [place] [address] Care Team Providers Care Physician Intensivist Name Role Phone SNAYA ONEAL Referring Provider [phone] SANYA ONEAL Primary Care Provider Assessment No assessment recorded. Plan of Treatment Reminders Order Date Submit Date Provider Last Modified By Organization Details Last Modified Time Details Appointments MUST SEE 15 025 09:15AM Glenn Rubio MD Not available Not available Not available Lab None record ed. Referral None record ed. Procedures None record ed. Surgeries None record ed. Imaging None record ed. Medication Orders None record ed. Patient TargetsNo targets recorded. Patient InstructionsNo instructions recorded. Reason for Referral None Reported. Procedures Surgical History Date Name Laterality Status Provider Name and Address Organization Details Recorded Time 01/29/20 12194 Therapeutic Exercise (1:1) cancelled Bhavna Reece, PT [address], [place], [address], [facility] 01/26/2025 13:29:15 01/29/20 13462: Manual therapy cancelled Bhavna Reece, PT [address], [place], [address], [facility] 01/26/2025 13:29:15 01/15/20 05998 Therapeutic Exercise (1:1) completed Bhavna Reece, PT [address], [place], [address], [facility] 01/14/2025 12:41:15 01/15/20 90071: Manual therapy completed Bhavna Reece, PT [address], [place], [address], [facility] 01/14/2025 12:41:20 01/08/20 55286: Neuromuscular Re-Education completed Ish Rhodes, MODELING TEACHER [address], [place], [address], [facility] 01/07/2025 13:39:57 12/30/19 33996 Therapeutic Exercise (1:1) completed Ish Rhodes, MODELING TEACHER [address], [place], [address], [facility] 12/29/2024 14:14:23 12/30/19 18892: Neuromuscular Re-Education completed Ish Rhodes, MODELING TEACHER [address], [place], [address], [facility] 12/29/2024 14:14:19 12/23/19 08139 Therapeutic Exercise (1:1) completed Bhavna Reece, PT [address], [place], [address], [facility] 12/22/2024 15:03:25 12/23/19 78071: Manual therapy completed Bhavna Reece, PT [address], [place], [address], [facility] 12/22/2024 15:03:31 12/11/19 27772 Therapeutic Exercise (1:1) cancelled Bhavna Reece, PT [address], [place], [address], [facility] 12/08/2024 13:45:52 11/27/19 96490 Therapeutic Exercise (1:1) completed Bhavna Reece, PT [address], [place], [address], [facility] 2024 11:55:34 11/27/19 84080: Low complexity PT Eval completed Bhvana Reece, PT [address], [place], [address], [facility] 2024 08:35:24 11/27/19 25 G8417 BMI Above Upper Parameters, F/U Documented completed Bhavna Reece, PT [address], [place], [address], [facility] 2024 08:35:20 11/27/19 25 G8427 Current Medication Documented completed Bhavna Reece, PT [address], [place], [address], [facility] 2024 08:35:17 Imaging Results None recorded. [...] ONE CAPSULE BY MOUTH TWICE A DAY active Not Available Not Available [...] and Address Organization Details Last Updated DateTime 04/06/2025 157.48 cm 30.5 kg/m2 66826.93 g Will Holliday [place] - [facility] 04/06/2025 13:45:36 Social History None recorded. Functional Status None recorded. Mental Status None recorded. Family History Nothing Reported. Medical History No medical history recorded. Gynecological HistoryNo gynecological history recorded. Obstetrics History GPAL:G 0 P 0 0 0 0 Past Encounters Encounter ID Performer Location Encounter Start Date Encounter Closed Date Diagnosis/Indication Diagnosis SNOMED-CT Code Diagnosis ICD10 Code Diagnosis IMO Codes Diagnosis Note [id number] [facility] [address]rd [address] [facility] [place] [address] 04/06/2025 13:14:31 04/06/2025 14:26:37 Ankle pain [id number] M25.571 [id number] Health Concerns Section Related Observation LastModified by Organization Detai ls LastModified Time None Recorded Concern Status LastModified by Organization Details LastModified Time None Recorded Payers Encounter Date Sequence Insurance Name Policy Number Policy Slade Covered Member ID Slade Member ID Guarantor Name 04/06/2025 1 [place] [employer] Kelly Zuniga [id number] Debby Zuniga 04/06/2025 2 [place] [facility] Kelly Efrain [id number] Debby Zuniga Notes Date Note Type Note Provider Name and Address Organization Details Recorded Time 04/06/2025 text/html Patient seen by myself under direct supervision by Dr. Huerta is available but did not see the patient. HPI: Patient presents for MRI review right ankle for further evaluation of ongoing right lateral ankle pain. She was previously seen by Dr. Rubio following the injury in October 2024. She reports the pain is still there. She feels physical therapy made symptoms worse. Her pain is localized over the lateral ankle. Patient has tried ankle brace and sleeve along with activity modification. She recently went to the [employer] and states the walking is unbearable. She had to be in a wheelchair half the time. We recall she has a history of opioid dependence on Suboxone. She is also a former smoker and is on disability. She tells me that over the lawsuit regarding this injury. She injured the right ankle at [place] in December 2023. She was diagnosed with a lateral malleolus avulsion fracture and was treated conservatively. Due to ongoing pain MRI was ordered at last visit to further evaluate soft tissues and evaluate her peroneal tendons. Her pain today is described as severe. She has difficulty standing and walking for more than 5 minutes. She also has pain over the plantar heel which is more recent. This is a little better today. She has tried better shoe wear which helps her heel pain.Past family history, medical history, social history, allergies, [...] has mild soft tissue swelling about the right lateral malleolus. Tender at the tip of the lateral malleolus. She is tender over the lateral ankle ligaments and over the peroneal tendons at the retrofibular groove. No peroneal subluxation. Nontender over the medial malleolus or deltoid. No pain with syndesmotic squeeze. Supple ankle and foot range of motion. 5 out of 5 peroneal strength. No gross instability although exam limited by guarding. Neurovascularly intact distally. Calf is supple and nontender. Skin without lesions.IMAGING:X-Ray s previously ordered, obtained, and reviewed at [facility]: 5 view standing series of the right foot and ankle reveal intact symmetric ankle mortise. Small avulsion fracture at the tip of the lateral malleolus visualized.Patient brought a disc with her of prior x-rays from [facility] from December 2023 which reveals again a small lateral malleolus avulsion fracture.MRI right ankle independently reviewed by myself today with the patient in the office reveals evidence of ATFL and CFL injury/sprain. There is evidence of peroneal tenosynovitis and tendinopathy without an obvious tear involving the longus or brevis tendon. Mild midfoot osteoarthritis which does not correlate with the area of pain. Thickened portion of the deltoid although this does not correlate with her area of pain as well. No evidence of talar osteochondral lesions or fractures noted. ASSESSMENT: History of right ankle sprain, lateral malleolus avulsion fracture with continued pain as well as peroneal tendon pain consistent with tenosynovitis/tendino huber.PLAN: Recommend follow-up with Dr. Rubio for any further recommendations given ongoing pain despite conservative care. Patient agrees to this. Latoya Watts PA-C [address], [place], [address], [facility] 04/06/2025 14:26:35 OBGyn Episode No OBEpisode recorded.
--- OUTSIDE RECORDS SUMMARY | 2025-04-13 08:44 | XMS_ITS | Continuity of Care Document ---
Author Organization [place] - [employer] [facility] 3rd floor Address [address] [place] [address] Care Team Providers Care Gaming Pit Boss Name Role Phone SANYA ONEAL Referring Provider SANYA ONEAL Primary Care Provider Assessment No assessment recorded. Plan of Treatment Reminders Order Date Submit Date Provider Last Modified By Organization Details Last Modified Time Details Appointments MUST SEE 15 2024 09:15A M Glenn Rubio MD Not available Not available Not available Lab None recorded. Referral None recorded. Procedures None recorded. Surgeries None recorded. Imaging MRI, ankle, w/o contrast - EVAL PERONEAL TENDON 2024 025 [facility] ([facility]), [address] [place], [address], 02/05/2025 09:15:58 Medication Orders None recorded. Patient TargetsNo targets recorded. Patient InstructionsNo instructions recorded. Reason for Referral None Reported. Results Created Date Observation Date Name Description Value Unit Range Abnormal Flag Note LastModifiedBy Organization Detail LastModifiedTime 02/05/2002/04/2025 MRI, ankle , w/o contr ast [facility] Access ion Number : [id number] Samantha real Name: Nayely Gan lidia Medica l Record Number : [id number] Date of : 1960 Date of Exam: 2024 Referr ing Physic jarred: Latoya Ramey [facility] Surgeo ns ([facility]) [address] [facility] , [address] [place] [address] Exam: MR Ankle (C-) CPT 51842 - Right Room Descri ption: [facility] 3.0T MRI Joint Ext Lower W/O Contra [...] eofibu lar ligame nts Anteri or and malt house kiln operator ior tibiof ibular ligame nts are intact . High School Sports Coach ior talofi bular ligame nt is intact [...] I agree with this report . WSN: [id number] Orderi ng Physic jarred: Latoya Ramey [facility] Signed By: Laura Sotelo MD [email or web address] [facility] ([facility]) [address], [place], [address], 02/05/2025 09:16:09 Result Notes None recorded. Procedures Surgical History Date Name Laterality Status Provider Name and Address Organization Details Recorded Time 01/29/20 17942 Therapeutic Exercise (1:1) cancelled Bhavna Reece, PT [address], [place], [address], [facility] 01/26/2025 13:29:15 01/29/20 30179: Manual therapy cancelled Bhavna Reece, PT [address], [place], [address], [facility] 01/26/2025 13:29:15 01/15/20 16177 Therapeutic Exercise (1:1) completed Bhavna Reece, PT [address], [place], [address], [facility] 01/14/2025 12:41:15 01/15/20 33034: Manual therapy completed Bhavna Reece, PT [address], [place], [address], [facility] 01/14/2025 12:41:20 01/08/20 06961: Neuromuscular Re-Education completed Ish Rhodes, LORENA [address], [place], [address], [facility] 01/07/2025 13:39:57 12/30/19 71863 Therapeutic Exercise (1:1) completed Ish Rhodes, TECH BRAZER TESTER [address], [place], [address], [facility] 12/29/2024 14:14:23 12/30/19 05094: Neuromuscular Re-Education completed Ish Rhodes, TECH BRAZER TESTER [address], [place], [address], [facility] 12/29/2024 14:14:19 12/23/19 31355 Therapeutic Exercise (1:1) completed Bhavna Reece, PT [address], [place], [address], [facility] 12/22/2024 15:03:25 12/23/19 38006: Manual therapy completed Bhavna Jenningsd, PT [address], [place], [address], [facility] 12/22/2024 15:03:31 12/11/19 11400 Therapeutic Exercise (1:1) cancelled Bhavna Jenningsd, PT [address], [place], [address], [facility] 12/08/2024 13:45:52 11/27/19 61144 Therapeutic Exercise (1:1) completed Bhavna Reece, PT [address], [place], [address], [facility] 2024 11:55:34 11/27/19 71245: Low complexity PT Eval completed Bhavna Reece, PT [address], [place], [address], [facility] 2024 08:35:24 11/27/19 25 G8417 BMI Above Upper Parameters, F/U Documented completed Bhavna Jenningsd, PT [address], [place], [address], [facility] 2024 08:35:20 11/27/19 25 G8427 Current Medication Documented completed Bhavna Jenningsd, PT [address], [place], [address], [facility] 2024 08:35:17 Imaging Results None [...] Updated DateTime 01/28/2025 157.48 cm 30.5 kg/m2 61824.93 g Sheryl read [place] [facility] 01/28/2025 09:11:17 Social History None [...] ICD10 Code Diagnosis IMO Codes Diagnosis Note [id number] Ish Rhodes, TECH BRAZER TESTER [facility] on [address] [place] [address] 12/29/2024 13:18:56 12/29/2024 15:25:38 Injury of right ankle 7166947977 9922576 S99.911D 337963 [id number] Ish Rhodes, TECH BRAZER TESTER [facility] [address] [place] [address] 01/07/2025 13:01:53 01/07/2025 14:16:24 Injury of right ankle [id number] 6260960 S99.911D [id number] Bhavna Reece, PT [facility] [address] [place] [address] 01/14/2025 11:24:10 01/14/2025 13:33:18 Injury of right ankle 0460616944 7333872 S99.911D [id number] Latoya Watts PA-C [facility] [address] [facility] [place] [address] 01/28/2025 08:47:58 02/05/2025 11:42:04 Ankle pain [id number] M25.571 [id number] Health Concerns Section Related Observation LastModified by Organization Detai ls LastModified Time None Recorded Concern Status LastModified by Organization Details LastModified Time None Recorded Payers Encounter Date Sequence Insurance Name Policy Number Policy Slade Covered Member ID Slade Member ID Guarantor Name 01/28/2025 1 MEDICARE B-[place]: [facility] Kelly Zuniga [id number] Debby Zuniga Notes Date Note Type Note Provider Name and Address Organization Details Recorded Time 01/28/2025 text/html Patient seen by myself under [...] a significant right ankle [facility] 2023. Describes it as an [...] Here today to discuss treatment options.Lives in [place], works part-time for [employer], on disability after left total knee replacement, [...] ays previously ordered, obtained, and reviewed at [facility]: 3 weightbearing x-rays of right ankle, to the right foot, AP comparison to the foot and ankle reveal intact symmetric mortise. Appropriate syndesmotic alignment. Appropriate lateral alignment. Small avulsion fracture at the tip of the lateral malleolus visualized. No acute bony abnormality.Patient brought a disc with her of prior x-rays from [facility] from December 2023 which were reviewed. [...] sleeve as well. Latoya Watts PA-C [address], [place], [address], [facility] 01/28/2025 10:22:31 OBGyn Episode No OBEpisode recorded.
--- OUTSIDE RECORDS SUMMARY | 2025-04-13 08:44 | XMS_ITS | Clinical Summary ---
Author Organization [facility] Address [address] [phone] Phone Care Team Providers Care Data Coordinator Name Role Phone Ny Etienne MD Primary [...] topic Medical Devices Not on file Insurance [employer] TOGETHER [employer] C[employer]X TOGETHER [place] [employer] [employer] TOGETHER [employer] TOGETHER [place] [employer] Care Teams Data Coordinator Relationship Specialty Start Date End Date Ny Etienne MD [address] [place] [address] [address] [place] [address] PCP - General 05/03/17 Additional Source Comments The information contained in this document represents components of the legal health record. It is not the complete legal health record.[facility]
--- OUTSIDE RECORDS SUMMARY | 2025-04-13 08:44 | XMS_ITS | Continuity of Care Document ---
Author Organization [facility] PT Address [address] [place] [address] Care Team Providers Care Mainspring Winder And Oiler Name Role Phone SANYA ONEAL Referring Provider SANYA ONEAL Primary Care Provider [phone] Assessment Encounter Date Assessment Date Assessment LastModified by Organization Details LastModified Time 01/14/2025 01/14/2025 ASSESSMENT: Pt. with continued TTP to ATFL and reports general achiness with driving still. DEnies improvement in sx since beginning therapy. PLAN: Frequency: 2x per week, Duration: 6 weeks PROM / AAROM / AROM LE strengthening balance / proprioception manual therapy and modalities prn gait training transfer training [email or web address] Not available 01/14/2025 12:43:26 Plan of Treatment [...] , w/o contr ast [facility] [place] [facility] Access ion Number : [id number] Samantha real Name: Nayely Gan Medica l Record Number : [id number] Date of : 1960 Date of Exam: 2024 Referr ing Physic jarred: Latoya Ramey Orthop edic Surgeo ns ([facility]) [address] [facility] , [address] [place] [address] Exam: MR Ankle (C-) CPT 29178 - Right Room Descri ption: [facility] 3.0T MRI Joint Ext Lower W/O [...] eofibu lar ligame nts Anteri or and loss mitigation specialist ior tibiof ibular ligame nts are intact . Thermal Intelligence Analyst ior talofi bular ligame nt is intact [...] I agree with this report . WSN: [id number] [facility] Physic jarred: Latoya Ramey Electr onical ly Signed By: Laura Sotelo MD [email or web address] [facility] ([facility]) [address], [place], [address], 02/05/2025 09:16:09 Result Notes None recorded. Procedures Surgical History Date Name Laterality Status Provider Name and Address Organization Details Recorded Time 01/29/20 60537 Therapeutic Exercise (1:1) cancelled Bhavna Reece, PT [address], [place], [address], [facility] 01/26/2025 13:29:15 01/29/20 46970: Manual therapy cancelled Bhavna Reece, PT [address], [place], [address], [facility] 01/26/2025 13:29:15 01/15/20 85389 Therapeutic Exercise (1:1) completed Bhavna Reece, PT [address], [place], [address], [facility] 01/14/2025 12:41:15 01/15/20 71534: Manual therapy completed Bhavna Reece, PT [address], [place], [address], [facility] 01/14/2025 12:41:20 01/08/20 92493: Neuromuscular Re-Education completed Ish Rhodes, PSYCHIATRIC TECH [address], [place], [address], [facility] 01/07/2025 13:39:57 12/30/19 48014 Therapeutic Exercise (1:1) completed Ish Rhodes, PSYCHIATRIC TECH [address], [place], [address], [facility] 12/29/2024 14:14:23 12/30/19 86883: Neuromuscular Re-Education completed Ish Rhodes, PSYCHIATRIC TECH [address], [place], [address], [facility] 12/29/2024 14:14:19 12/23/19 64835 Therapeutic Exercise (1:1) completed Bhavna Reece, PT [address], [place], [address], [facility] 12/22/2024 15:03:25 12/23/19 23026: Manual therapy completed Bhavna Reece, PT [address], [place], [address], [facility] 12/22/2024 15:03:31 12/11/19 73205 Therapeutic Exercise (1:1) cancelled Bhavna Reece, PT [address], [place], [address], [facility] 12/08/2024 13:45:52 11/27/19 03752 Therapeutic Exercise (1:1) completed Bhavna Reece, PT [address], [place], [address], [facility] 2024 11:55:34 11/27/19 78419: Low complexity PT Eval completed Bhavna Reece, PT [address], [place], [address], [facility] 2024 08:35:24 11/27/19 25 G8417 BMI Above Upper Parameters, F/U Documented completed Bhavna Reece, PT [address], [place], [address], [facility] 2024 08:35:20 11/27/19 25 G8427 Current Medication Documented completed Bhavna Reece, PT [address], [place], [address], [facility] 2024 08:35:17 Imaging Results None recorded. [...] Available Not Available No t Available Vitals None Recorded Social History None recorded. Functional Status None recorded. Mental Status None recorded. Family History Nothing Reported. Medical History No medical history recorded. Gynecological HistoryNo gynecological history recorded. Obstetrics History GPAL:G 0 P 0 0 0 0 Past Encounters Encounter ID Performer Location Encounter Start Date Encounter Closed Date Diagnosis/Indication Diagnosis SNOMED-CT Code Diagnosis ICD10 Code Diagnosis IMO Codes Diagnosis Note [id number] Bhavna Reece, PT [facility] on [address] [place] [address] 12/22/2024 14:00:50 12/22/2024 15:58:48 Injury of right ankle [id number] 8930107 S99.911D [id number] Ish Rhodes, [facility] on [address] [place] [address] 12/29/2024 13:18:56 12/29/2024 15:25:38 Injury of right ankle [id number] 4087928 S99.911D [id number] Ish Rhodes, PSYCHIATRIC TECH [facility] [address] [place] [address] 01/07/2025 13:01:53 01/07/2025 14:16:24 Injury of right ankle 0390853622 6256650 S99.911D [id number] Bhavna Reece, PT [facility] [address] [place] [address] 01/14/2025 11:24:10 01/14/2025 13:33:18 Injury of right ankle [id number] 9190600 S99.911D [id number] Health Concerns Section Related Observation LastModified by Organization Detai ls LastModified Time None Recorded Concern Status LastModified by Organization Details LastModified Time None Recorded Payers Encounter Date Sequence Insurance Name Policy Number Policy Slade Covered Member ID Slade Member ID Guarantor Name 01/14/2025 1 MEDICARE B-[place]: [employer] Kelly Zuniga [id number] Debby Zuniga 01/14/2025 2 [place] Debby Zuniga [id number] Debby Zuniga Notes Date Note Type Note Provider Name and Address Organization Details Recorded Time 01/14/2025 text/html Ankle pain when driving.No improvement since beginning therapy at all.Soreness in calf and ankle after walking on beach. Bhavna Reece, PT [address], [place], [address], [place] [facility] 01/14/2025 12:43:31 OBGyn Episode No OBEpisode recorded.
--- OUTSIDE RECORDS SUMMARY | 2025-04-13 08:44 | XMS_ITS | Data Portability ---
Author Organization [facility], [facility] Address [address] [place] [address] Care Team Providers Care Educational Technologist Name Role Phone SANYA ONEAL Referring Provider SANYA ONEAL Primary Care Provider [phone] Assessment Encounter Date Assessment Date Assessment LastModified by Organization Details LastModified Time 12/29/2024 12/29/2024 ASSESSMENT: Pt. challenged with narrow base of support proprioception exercises needing one UE support to maintain balance. Mild discomfort when performing wobble board CW and CCW exercises, but able to tolerate all other directions. PLAN: Frequency: 2x per week, Duration: 6 weeks PROM / AAROM / AROM LE strengthening balance / proprioception manual therapy and modalities prn gait training transfer training [email or web address] Not available 12/29/2024 14:15:34 01/07/2025 01/07/2025 ASSESSMENT: Pt. was unable to complete SLS on level ground dt experiencing moderate discomfort. However, able to tolerate a modification with rebound er exercises with mild discomfort experienced. PLAN: Frequency: 2x per week, Duration: 6 weeks PROM / AAROM / AROM LE strengthening balance / proprioception manual therapy and modalities prn gait training transfer training [email or web address] Not available 01/07/2025 13:52:57 01/14/2025 01/14/2025 ASSESSMENT: [...] ankle, w/o contrast - EVAL PERONEAL TENDON [id number] [facility] ([facility]), [address] [place], [address], 02/05/2025 09:15:58 Medication Orders None recorded. Patient TargetsNo targets recorded. Patient InstructionsNo instructions recorded. Reason for Referral None Reported. Results Created Date Observation Date Name Description Value Unit Range Abnormal Flag Note LastModifiedBy Organization Detail LastModifiedTime 02/05/2002/04/2025 MRI, ankle , w/o contr ast [facility] Access ion Number : [id number] Patijaron real Name: Nayely Gan l Record Number : [id number] Date of : 1960 Date of Exam: 2024 Referr ing Physic jarred: Latoya Ramey [facility] ([facility]) [address] [place] [address] , [address] [place] [address] Exam: MR Ankle (C-) CPT 90853 - Right Room Descri ption: [facility] 3.0T MRI Joint Ext Lower W/O Contra [...] eofibu lar ligame nts Anteri or and job press operator ior tibiof ibular ligame nts are intact . Mill Roll Operator ior talofi bular ligame nt is intact [...] I agree with this report . WSN: [id number] Orderi ng Physic jarred: Latoya Ramey [facility] ly Signed By: Laura Sotelo MD [email or web address] [facility] ([facility]) [address] [place], [address], 02/05/2025 09:16:09 Result Notes Documentation Provider Name and Address Organization Details Recorded Time Mri, Ankle, W/o Contrast : [facility] Accession Number: [id number] Patient Name: Kelly Zuniga Date of : 1960 Date of Exam: 02-04-2025 Referring Physician: Latoya Watts [facility] ([facility]) [address] [place] [address], [address] [place] [address] Exam: MR Ankle (C-) CPT 99019 - Right Room Description: [facility] 3.0T MRI Joint Ext Lower W/O Contrast [...] and I agree with this report. WSN: [id number] Ordering Physician: Latoya Watts Electronically Signed [facility]: [facility] 02/05/2025 09:16:09 Procedures Surgical History Date Name Laterality Status Provider Name and Address Organization Details Recorded Time 01/29/20 74389 Therapeutic Exercise (1:1) cancelled Bhavna Reece, PT [address] [facility], [place], [address], [facility] 01/26/2025 13:29:15 01/29/20 25 15932: Manual therapy cancelled Bhavna Reece PT [address], [place], [address], [facility] 01/26/2025 13:29:15 01/15/20 25 22343 Therapeutic Exercise (1:1) completed Bhavna Reece PT [address] [facility], [place], [address], [facility] 01/14/2025 12:41:15 01/15/20 14432: Manual therapy completed Bhavna Reece, PT [address], [place], [address], [facility] 01/14/2025 12:41:20 01/08/20 40605: Neuromuscular Re-Education completed Ish Rhodes, SUPPLY CRIB ATTENDANT [address], [place], [address], [facility] 01/07/2025 13:39:57 12/30/19 54307 Therapeutic Exercise (1:1) completed Ish Rhodes SUPPLY CRIB ATTENDANT [address], [place], [address], [facility] 12/29/2024 14:14:23 12/30/19 07512: Neuromuscular Re-Education completed Ish Rhodes SUPPLY CRIB ATTENDANT [address], [place], [address], [facility] 12/29/2024 14:14:19 12/23/19 55727 Therapeutic Exercise (1:1) completed Bhavna Reece, PT [address], [place], [address], [facility] 12/22/2024 15:03:25 12/23/19 83317: Manual therapy completed Bhavna Reece, PT [address], [place], [address], [facility] 12/22/2024 15:03:31 12/11/19 46817 Therapeutic Exercise (1:1) cancelled Bhavna Reece, PT [address], [place], [address], [facility] 12/08/2024 13:45:52 11/27/19 74024 Therapeutic Exercise (1:1) completed Bhavna Reece, PT [address], [place], [address], [facility] 2024 11:55:34 11/27/19 78097: Low complexity PT Eval completed Bhavna Jenningsd, PT [address], [place], [address], [facility] 2024 08:35:24 11/27/19 25 G8417 BMI Above Upper Parameters, F/U Documented completed Bhavna Jenningsd, PT [address], [place], [address], [facility] 2024 08:35:20 11/27/19 25 G8427 Current Medication Documented completed Bhavna Jenningsd, PT [address], [place], [address], [facility] 2024 08:35:17 Imaging Results None recorded. [...] Updated DateTime 01/28/2025 157.48 cm 30.5 kg/m2 08575.93 g Sheryl caicedod [facility] 01/28/2025 09:11:17 Date Recorded Body height Body mass index (BMI) Body weight Provider Name and Address Organization Details Last Updated DateTime 04/06/2025 157.48 cm 30.5 kg/m2 18922.93 g Will Holliday [facility] 04/06/2025 13:45:36 Social History None recorded. Functional Status None recorded. Mental Status None recorded. Family History Nothing Reported. Medical History No medical history recorded. Gynecological HistoryNo gynecological history recorded. Obstetrics History GPAL:G 0 P 0 0 0 0 Past Encounters Encounter ID Performer Location Encounter Start Date Encounter Closed Date Diagnosis/Indication Diagnosis SNOMED-CT Code Diagnosis ICD10 Code Diagnosis IMO Codes Diagnosis Note [id number] MD CARSON Reyes [facility] 1st Floor [address] [facility] [place] [place] [address] 10/22/2024 08:22:09 11/03/2024 14:07:17 Injury of right ankle 6401367118 9039330 S99.911A [id number] Bhavna Reece PT [facility] [address] [place] [address] 2024 08:24:56 2024 10:03:03 Injury of right ankle 2903425287 0946288 S99.911D [id number] Bhavna Reece, PT [facility] [address] [place] [address] 12/22/2024 14:00:50 12/22/2024 15:58:48 Injury of right ankle 3879157396 2798797 S99.911D [id number] Ish Rhodes, SUPPLY CRIB ATTENDANT [facility] [address] [place] [address] 12/29/2024 13:18:56 12/29/2024 15:25:38 Injury of right ankle 7432463434 6389931 S99.911D [id number] Ish Rhodes, SUPPLY CRIB ATTENDANT [facility] [address] [place] [address] 01/07/2025 13:01:53 01/07/2025 14:16:24 Injury of right ankle 3507993730 0565757 S99.911D [id number] Bhavna Reece, PT [facility] [address] [place] [address] 01/14/2025 11:24:10 01/14/2025 13:33:18 Injury of right ankle 4478733734 6985126 S99.911D [id number] Latoya Watts PA-C [facility] [address] [place] [address] 01/28/2025 08:47:58 02/05/2025 11:42:04 Ankle pain 421785831 M25.571 [id number] Latoya Watts PA-C [facility] [address] [place] [address] 04/06/2025 13:14:31 04/06/2025 14:26:37 Ankle pain 591211624 M25.571 [id number] Health Concerns Section Related Observation LastModified by Organization Detai ls LastModified Time None Recorded Concern Status LastModified by Organization Details LastModified Time None Recorded Advance Directives Directive None Recorded Payers Insurance Date Sequence Insurance Name Policy Number Policy Slade Covered Member ID Slade Member ID Guarantor Name 04/03/2025 1 [place] [employer] Kelly Zuniga [id number] Debby Zuniga 01/26/2025 2 [place] [facility]by Zuniga [id number] Debby Zuniag 04/06/2025 2 [place] [facility] Kelly Zuniga [id number] Debby Zuniga Notes Date Note Type Note Provider Name and Address Organization Details Recorded Time 12/29/2024 text/html Pt. reports no significant changes since last visit, has moderate difficulty with pain management when driving. Ish Rhodes, SUPPLY CRIB ATTENDANT [address], [place], [address], [facility] 12/29/2024 14:15:59 01/07/2025 text/html Pt. continues to report ankle pain when driving. Ish Rhodes, SUPPLY CRIB ATTENDANT [address], [place], [address], [facility] 01/07/2025 13:53:17 01/14/2025 text/html Ankle pain when driving.No improvement since beginning therapy at all.Soreness in calf and ankle after walking on beach. Bhavna Reece, PT [address], [place], [address], [facility] 01/14/2025 12:43:31 01/28/2025 text/html Patient seen [...] a significant right ankle sp[place] in [place] 2023. Describes it as an [...] Here today to discuss treatment options.Lives in [place], works part-time for [employer], on disability after left total knee replacement, [...] ays previously ordered, obtained, and reviewed at [facility]: 3 weightbearing x-rays of right ankle, to the right foot, AP comparison to the foot and ankle reveal intact symmetric mortise. Appropriate syndesmotic alignment. Appropriate lateral alignment. Small avulsion fracture at the tip of the lateral malleolus visualized. No acute bony abnormality.Patient brought a disc with her of prior x-rays from [facility] from December 2023 which were reviewed. [...] sleeve as well. Latoya Watts PA-C [address] [facility] [address], [place], [address], [facility] 01/28/2025 10:22:31 04/06/2025 text/html Patient seen by myself under [...] activity modification. She recently went to the [place] and states the walking is unbearable. She had to be in a wheelchair half the time. We recall she has a history of opioid dependence on Suboxone. She is also a former smoker and is on disability. She tells me that over the lawsuit regarding this injury. She injured the right ankle at [place] in December 2023. She was diagnosed with [...] s previously ordered, obtained, and reviewed at [facility]: 5 view standing series of the right foot and ankle reveal intact symmetric ankle mortise. Small avulsion fracture at the tip of the lateral malleolus visualized.Patient brought a disc with her of prior x-rays from [facility] from December 2023 which reveals again a [...] agrees to this. Latoya Watts PA-C [address], [place], [address], [facility] 04/06/2025 14:26:35 OBGyn Episode No OBEpisode recorded.
== END 2025-04-13 08:59 | disposition home or self-care (01) ==
LOC: HO.HMCH 08:27
PROVIDERS: PCP Physician Assistant; Visit Provider Physician Assistant
DX: I10 Essential (primary) hypertension (principal); J41.1 Mucopurulent chronic bronchitis; F11.20 Opioid dependence, uncomplicated; R73.09 Other abnormal glucose; S82.61XS Displaced fracture of lateral malleolus of right fibula, sequela; R31.29 Other microscopic hematuria; M54.50 Low back pain, unspecified; G89.29 Other chronic pain

== ENCOUNTER → 2025-04-13 08:26 | Outpatient (BNVA) | payer MEDICARE, MEDICAID, SELFPAY | PROVIDERS: PCP Physician Assistant; Visit Provider Physician Assistant | DX: I10 Essential (primary) hypertension (principal); R73.09 Other abnormal glucose; S82.61XS Displaced fracture of lateral malleolus of right fibula, sequela; J41.1 Mucopurulent chronic bronchitis; F11.20 Opioid dependence, uncomplicated; R31.29 Other microscopic hematuria; M54.50 Low back pain, unspecified; G89.29 Other chronic pain | CPT/HCPCS: 96127; 99212 ==

== ENCOUNTER 2025-05-06 13:01 | Outpatient (REF) | payer MEDICARE, MEDICAID, SELFPAY ==
--- OUTSIDE RECORDS SUMMARY | 2025-05-06 16:55 | XMS_ITS | Clinical Summary ---
Author Organization [facility] Address [address] [phone] Phone Care Team Providers Care Computer Security Specialist Name Role Phone Ny Etienne MD Primary [...] topic Medical Devices Not on file Insurance [employer] TOGETHER MarginLeft [employer] TOGETHER [place] [employer] [employer] TOGETHER [employer] TOGETHER [place] [employer] Care Teams Computer Security Specialist Relationship Specialty Start Date End Date Ny Etienne MD [address] [place] [address] [address] [place] [address] PCP - General 05/03/17 Additional Source Comments The information contained in this document represents components of the legal health record. It is not the complete legal health record.[facility]
== END 2025-05-06 13:02 | disposition home or self-care (01) ==
LOC: HO.MAMMO 13:01
PROVIDERS: PCP Physician Assistant; Visit Provider Physician Assistant
DX: Z12.31 Encounter for screening mammogram for malignant neoplasm of breast (principal)
CPT/HCPCS: 77063; 77067

== ENCOUNTER → 2025-05-06 13:15 | Outpatient (BNV) | payer MEDICARE, MEDICAID, SELFPAY | PROVIDERS: PCP Physician Assistant; Visit Provider Radiology Body Imaging | DX: Z12.31 Encounter for screening mammogram for malignant neoplasm of breast (principal) | CPT/HCPCS: 77063; 77067 ==